=== PATIENT | female | born 1940 | race Two or more races ===

== ENCOUNTER 2021-06-18 20:00 | Emergency (ER) | payer MEDICARE, MEDICAID ==
[~2021-06-18] VITALS: Ht 165.1 cm; Wt 74.8 kg
[2021-06-18] MEDS ORDERED: HYDROmorphone HCL 2 MG/ML VL IV ONE (20:45)
[2021-06-18] MEDS ORDERED: ONDANSETRON HCL 4 MG/2 ML VIAL IV ONE (20:45)
[2021-06-18] MEDS ORDERED: SODIUM CHLORIDE 0.9% 500 ML IV ONE (21:45)
[2021-06-18] MEDS ORDERED: METOPROLOL TARTRATE 1MG/1ML-5ML VIAL IV ONE (22:00)
[2021-06-18 22:25] LABS: Basophils # (auto) 0 10 ^3/uL (0-0.2); Basophils % (auto) 0.5 % (0.0-2.0); Eosinophils # (auto) 0.3 10 ^3/uL (0-0.8); Eosinophils % (auto) 3.6 % (0.0-7.0); Hematocrit 40.4 % (36.0-46.0); Hemoglobin 13.7 g/dL (12.2-16.2); Lymphocytes # (auto) 1.9 10 ^3/uL (0.4-5.4); Lymphocytes % (auto) 22.4 % (10.0-50.0); Mean Corpuscular Hemoglobin 33.3 pg (28.0-32.0); Mean Corpuscular Volume 98.1 fL (80.0-100.0); Monocytes # (auto) 0.8 10 ^3/uL (0-1.3); Monocytes % (auto) 9.6 % (0.0-12.0); Neutrophils # (auto) 5.5 10 ^3/uL (1.6-8.6); Neutrophils % (auto) 63.9 % (37.0-80.0); Nucleated Red Blood Cells % 0.2 %; Red Blood Cells 4.12 10^6/uL (4.0-5.20); Red Cell Distribution Width 13.8 % (11.8-14.3); White Blood Cell 8.6 10^3/uL (4.4-10.8)
[2021-06-18 22:46] LABS: Albumin 3.2 g/dL (3.4-5.0); BUN/Creatinine Ratio 29.7; Calcium 8.8 mg/dL (8.5-10.1); Potassium 3.6 mmol/L (3.5-5.1)
[2021-06-18 22:49] LABS: Bilirubin, Total 0.4 mg/dL (0.2-1.0); Total Protein 7.3 g/dL (6.4-8.2)
[2021-06-19] MEDS ORDERED: hydrALAZINE HCL 20 MG/ML VL IV ONE ×2 (02:45)
[2021-06-19] MEDS ORDERED: HYDROcodone-ACET 5/325MG TAB PO ONE (03:30)
[2021-06-19] MEDS ORDERED: ONDANSETRON HCL 4 MG/2 ML VIAL IV ONE (03:30)
[2021-06-19 07:32] VITALS: BP 158/86
== END 2021-06-19 09:37 | disposition home or self-care (01) ==
LOC: EDBD 20:00 → ER 20:03
DX: S30.1XXA Contusion of abdominal wall, initial encounter (principal); S70.01XA Contusion of right hip, initial encounter; I10 Essential (primary) hypertension; Z20.822 Contact with and (suspected) exposure to COVID-19; W18.39XA Other fall on same level, initial encounter; Y93.89 Activity, other specified; Y92.89 Other specified places as the place of occurrence of the external cause; Y99.8 Other external cause status
CPT/HCPCS: 36415; 72170; 73502; 74176; 80053; 85025; 87426; 93005; 96361; 96374; 96375; 96376; J2405

== ENCOUNTER 2021-06-21 10:55 | Inpatient (IN) | payer MEDICARE, MEDICAID ==
[~2021-06-21] VITALS: Ht 154.9 cm; Wt 77.5 kg
[2021-06-21] MEDS ORDERED: SODIUM CHLORIDE 0.9% 500 ML IV ONE (12:30)
[2021-06-21 13:24] LABS: Basophils # (auto) 0.1 10 ^3/uL (0-0.2); Basophils % (auto) 0.9 % (0.0-2.0); Eosinophils # (auto) 0.2 10 ^3/uL (0-0.8); Eosinophils % (auto) 2.5 % (0.0-7.0); Hemoglobin 12.5 g/dL (12.2-16.2); Lymphocytes # (auto) 1.2 10 ^3/uL (0.4-5.4); Lymphocytes % (auto) 15.1 % (10.0-50.0); Mean Corpuscular Hemoglobin 32.5 pg (28.0-32.0); Mean Corpuscular Volume 98.3 fL (80.0-100.0); Monocytes # (auto) 0.6 10 ^3/uL (0-1.3); Monocytes % (auto) 7.1 % (0.0-12.0); Neutrophils # (auto) 6.1 10 ^3/uL (1.6-8.6); Neutrophils % (auto) 74.4 % (37.0-80.0); Nucleated Red Blood Cells % 0.1 %; Red Blood Cells 3.87 10^6/uL (4.0-5.20); White Blood Cell 8.2 10^3/uL (4.4-10.8)
[2021-06-21 13:35] LABS: Albumin 2.9 g/dL (3.4-5.0); Calcium 8.5 mg/dL (8.5-10.1); Potassium 3.9 mmol/L (3.5-5.1)
[2021-06-21 13:37] LABS: INR 1.3 (0.9-1.15); Partial Thromboplastin Time 30.5 sec (23.6-33.0)
[2021-06-21 13:38] LABS: BUN/Creatinine Ratio 27.8; Bilirubin, Total 0.7 mg/dL (0.2-1.0); Total Protein 6.2 g/dL (6.4-8.2)
[2021-06-21] MEDS ORDERED: IOHEXOL 300 MG/ML 100ML BOTTLE IJ ONE (14:30)
[2021-06-21] MEDS ORDERED: IOHEXOL 350 MG/ML 100ML IJ ONE (15:24)
[2021-06-21] MEDS ORDERED: HYDROcodone-ACET 5/325MG TAB PO PRN (17:15)
[2021-06-21] MEDS ORDERED: ACETAMINOPHEN 325 MG TAB PO PRN (17:15)
[2021-06-21] MEDS ORDERED: DOCUSATE SOD 100 MG CAP PO PRN (17:15)
[2021-06-21] MEDS ORDERED: LORazepam 0.5 MG TAB PO PRN (17:15)
[2021-06-21] MEDS ORDERED: MORPHINE SULFATE INJECTION 2 MG/ML SYRG IV PRN (17:15)
[2021-06-21] MEDS ORDERED: NITROGLYCERIN 0.4 MG SL TAB SL PRN (17:15)
[2021-06-21] MEDS: ONDANSETRON HCL 4 MG/2 ML VIAL IV PRN (19:00)
[2021-06-21] MEDS: SODIUM CHLORIDE 0.9% 1,000 ML IV SCH (19:01)
[2021-06-21 23:23] VITALS: BP 150/82
[2021-06-22 05:00] VITALS: BP 162/101
[2021-06-22] MEDS: HYDROmorphone HCL 2 MG/ML VL IV PRN ×3 (05:17→18:37)
[2021-06-22] MEDS: ONDANSETRON HCL 4 MG/2 ML VIAL IV PRN ×2 (05:18→09:15)
[2021-06-22] MEDS ORDERED: [UNRECOGNIZED DRUG - CODE] PO (05:33)
[2021-06-22] MEDS ORDERED: HYDR50TA15 PO (05:33)
[2021-06-22] MEDS ORDERED: CARV25TA55 PO (05:33)
[2021-06-22] MEDS ORDERED: GABA300C10 PO (05:33)
[2021-06-22] MEDS ORDERED: OXYB5SYP4 PO (05:33)
[2021-06-22] MEDS ORDERED: IRBE300T43 PO (05:33)
[2021-06-22] MEDS ORDERED: OMEP20TA PO (05:33)
[2021-06-22] MEDS ORDERED: DOCU-94 PO (05:33)
[2021-06-22] MEDS ORDERED: DONE1TAB88 PO (05:33)
[2021-06-22] MEDS ORDERED: MONT-8 PO (05:33)
[2021-06-22] MEDS: hydrALAZINE HCL 20 MG/ML VL IV PRN (07:05)
[2021-06-22] MEDS ORDERED: LORazepam 2MG/ML-1ML VIAL ONE (08:19)
[2021-06-22 08:46] VITALS: BP 175/90
[2021-06-22] MEDS: SODIUM CHLORIDE 0.9% 1,000 ML IV SCH (09:55)
[2021-06-22] MEDS: PROMETHAZINE HCL 25 MG/ML 1ML IV PRN ×2 (12:34→18:37)
[2021-06-22 12:44] VITALS: BP 148/96
[2021-06-22 17:00] VITALS: BP 166/86
[2021-06-22] MEDS: cloNIDine HCL 0.1 MG TAB PO PRN (18:36)
[2021-06-22] MEDS: RIVAROXABAN 15 MG TAB PO SCH (18:38)
[2021-06-22 22:00] VITALS: BP 144/81
[2021-06-23] MEDS: SODIUM CHLORIDE 0.9% 1,000 ML IV SCH ×2 (02:48→19:15)
[2021-06-23 05:00] VITALS: BP 165/103
[2021-06-23] MEDS: cloNIDine HCL 0.1 MG TAB PO PRN ×2 (05:28→20:35)
[2021-06-23 09:00] VITALS: BP 138/88
[2021-06-23] MEDS: HYDROmorphone HCL 2 MG/ML VL IV PRN (10:35)
[2021-06-23 17:00] VITALS: BP 145/87
[2021-06-23] MEDS: RIVAROXABAN 15 MG TAB PO SCH (18:57)
[2021-06-23] MEDS ORDERED: LORazepam 2MG/ML-1ML VIAL IV PRN (20:00)
[2021-06-23 22:00] VITALS: BP 170/97
[2021-06-23] MEDS: PANTOPRAZOLE 40 MG/10 ML VIAL INJ IV SCH (22:12)
[2021-06-23 22:37] LABS: Folate (Folic Acid) 18.07 ng/mL (5.38-24)
[2021-06-24] VITALS (7 sets, daily range): BP systolic 131–164; BP diastolic 92–105
[2021-06-24] MEDS ORDERED: diphenhdrAMINE HCL 50 MG/1 ML VL ONE (08:32)
[2021-06-24] MEDS: PANTOPRAZOLE 40 MG/10 ML VIAL INJ IV SCH (09:19)
[2021-06-24] MEDS: hydrALAZINE HCL 20 MG/ML VL IV PRN (12:37)
[2021-06-24] MEDS: SODIUM CHLORIDE 0.9% 1,000 ML IV SCH (12:47)
[2021-06-24] MEDS: MIDAZOLAM HCL 5 MG/ML-1ML VIAL ONE ×2 (14:58→15:01)
[2021-06-24] MEDS: fentaNYL CITRATE 100 MCG/2 ML VL ONE ×2 (14:58→15:01)
[2021-06-24] MEDS: RIVAROXABAN 15 MG TAB PO SCH (18:29)
[2021-06-24] MEDS ORDERED: HALOPERIDOL LACTATE 5 MG/ML INJ VIAL IM PRN (19:30)
[2021-06-24] MEDS ORDERED: MIRTAZAPINE 30 MG TAB PO SCH (22:00)
[2021-06-25] MEDS: SODIUM CHLORIDE 0.9% 1,000 ML IV SCH (04:35)
[2021-06-25 07:45] VITALS: BP 188/103
[2021-06-25 08:30] VITALS: BP 188/103
[2021-06-25] MEDS ORDERED: LABETALOL HCL 5 MG/ML 4ML SYRINGE IV ONE (08:30)
[2021-06-25] MEDS ORDERED: HALOPERIDOL LACTATE 5 MG/ML INJ VIAL IM PRN (08:30)
[2021-06-25] MEDS ORDERED: cefTRIAXone 1GM/50ML D5W 50 ML IV SCH (09:00)
[2021-06-25] MEDS: PANTOPRAZOLE 40 MG/10 ML VIAL INJ IV SCH (09:24)
[2021-06-25] MEDS ORDERED: METOPROLOL TARTRATE 25 MG TAB PO SCH (10:00)
[2021-06-25] MEDS ORDERED: LOSARTAN POTASSIUM 25 MG TAB PO SCH (10:00)
[2021-06-25 13:00] VITALS: BP 155/95
[2021-06-25 16:28] VITALS: BP 152/92
[2021-06-25 17:00] VITALS: BP 158/88
[2021-06-25] MEDS: RIVAROXABAN 15 MG TAB PO SCH (18:00)
== END 2021-06-25 19:55 | disposition home health service (06) | DRG 380 ==
LOC: ER 10:55 → EDBD 10:55 → OVERFLOW 17:04 → WEST WING 23:23 → TELE-WESTW 06-23 14:34
PROVIDERS: ADMIT Family Medicine; ATTEND Family Medicine
PROC: 0DB68ZX Excision of Stomach, Via Natural or Artificial Opening Endoscopic, Diagnostic (ICD-10-PCS; 2021-06-24)
PROC: 0DB48ZX Excision of Esophagogastric Junction, Via Natural or Artificial Opening Endoscopic, Diagnostic (ICD-10-PCS; 2021-06-24)
PROC: 0DB98ZX Excision of Duodenum, Via Natural or Artificial Opening Endoscopic, Diagnostic (ICD-10-PCS; principal; 2021-06-24 14:55)
DX: K22.10 Ulcer of esophagus without bleeding (principal); G93.41 Metabolic encephalopathy; S22.41XA Multiple fractures of ribs, right side, initial encounter for closed fracture; E44.1 Mild protein-calorie malnutrition; K44.9 Diaphragmatic hernia without obstruction or gangrene; I10 Essential (primary) hypertension; K29.70 Gastritis, unspecified, without bleeding; Z20.822 Contact with and (suspected) exposure to COVID-19; E66.9 Obesity, unspecified; F17.200 Nicotine dependence, unspecified, uncomplicated; I48.0 Paroxysmal atrial fibrillation; K21.9 Gastro-esophageal reflux disease without esophagitis; R53.81 Other malaise; W18.39XA Other fall on same level, initial encounter; Y93.89 Activity, other specified; Y92.89 Other specified places as the place of occurrence of the external cause; Z95.0 Presence of cardiac pacemaker; Z68.32 Body mass index [BMI] 32.0-32.9, adult; Y99.8 Other external cause status; Z79.01 Long term (current) use of anticoagulants; Z79.899 Other long term (current) drug therapy; Z90.49 Acquired absence of other specified parts of digestive tract
CPT/HCPCS: 36415; 43239; 70450; 72170; 73502; 74176; 74177; 80053; 82607; 82746; 84443; 85025; 85610; 85730; 87426; 93005; 93306; 93886; 95819; 96361; 96374; 96375; 96376; 97110; 97116; 97530; C9113; G0378; J0696; J2250; J2405

== ENCOUNTER 2021-08-29 21:48 | Emergency (ER) | payer MEDICARE, MEDICAID ==
[~2021-08-29] VITALS: Ht 165.1 cm; Wt 77.6 kg
[~2021-08-29 21:48] MED LIST: CARV25TA55 PO; DOCU-94 PO; DONE1TAB88 PO; GABA300C10 PO; HYDR50TA15 PO; IRBE300T43 PO; MONT-8 PO; OMEP20TA PO; OXYB5SYP4 PO; [UNRECOGNIZED DRUG - CODE] PO
[2021-08-29 22:47] LABS: Basophils # (auto) 0.1 10 ^3/uL (0-0.2); Basophils % (auto) 0.9 % (0.0-2.0); Eosinophils # (auto) 0.3 10 ^3/uL (0-0.8); Eosinophils % (auto) 3.7 % (0.0-7.0); Hematocrit 38.5 % (36.0-46.0); Hemoglobin 13.2 g/dL (12.2-16.2); Lymphocytes # (auto) 1.2 10 ^3/uL (0.4-5.4); Mean Corpuscular Hemoglobin 33.5 pg (28.0-32.0); Mean Corpuscular Hgb Conc. 34.2 g/dL (32.0-36.0); Monocytes # (auto) 0.9 10 ^3/uL (0-1.3); Monocytes % (auto) 12.3 % (0.0-12.0); Neutrophils # (auto) 4.6 10 ^3/uL (1.6-8.6); Neutrophils % (auto) 66.1 % (37.0-80.0); Nucleated Red Blood Cells % 0.1 %; Red Blood Cells 3.93 10^6/uL (4.0-5.20); Red Cell Distribution Width 13.8 % (11.8-14.3)
[2021-08-29 23:04] LABS: INR 1.45 (0.9-1.15); Partial Thromboplastin Time 41.9 sec (23.6-33.0)
[2021-08-29 23:05] LABS: Albumin 3.2 g/dL (3.4-5.0); Calcium 8.4 mg/dL (8.5-10.1); Magnesium 2.3 mg/dL (1.6-2.6); Potassium 3.8 mmol/L (3.5-5.1)
[2021-08-29 23:08] LABS: BUN/Creatinine Ratio 23.9
[2021-08-29 23:13] LABS: Bilirubin, Total 0.3 mg/dL (0.2-1.0); Total Protein 7.4 g/dL (6.4-8.2)
[2021-08-29] MEDS ORDERED: IOHEXOL 300 MG/ML 100ML BOTTLE IJ ONE (23:33)
[2021-08-30 04:30] VITALS: BP 101/62
== END 2021-08-30 06:02 | disposition home or self-care (01) ==
LOC: ER 21:54
DX: I48.91 Unspecified atrial fibrillation (principal); I10 Essential (primary) hypertension; Z95.0 Presence of cardiac pacemaker; Z79.899 Other long term (current) drug therapy
CPT/HCPCS: 36415; 71260; 80053; 83735; 83880; 84484; 85025; 85379; 85610; 85730; 93005; 99285; Q9967

== ENCOUNTER 2021-09-08 12:03 | Emergency (ER) | payer MEDICARE, MEDICAID ==
[~2021-09-08] VITALS: Ht 165.1 cm; Wt 76.2 kg
[2021-09-08 12:10] VITALS: BP 158/85
== END 2021-09-08 18:15 | disposition home or self-care (01) ==
LOC: ER 12:03
DX: J30.9 Allergic rhinitis, unspecified (principal); I10 Essential (primary) hypertension; Z95.0 Presence of cardiac pacemaker; Z79.899 Other long term (current) drug therapy
CPT/HCPCS: 93005

== ENCOUNTER 2021-09-25 18:54 | Inpatient (IN) | payer MEDICARE, MEDICAID ==
[~2021-09-25] VITALS: Ht 165.1 cm; Wt 80.2 kg
[2021-09-25] MEDS ORDERED: ASPirin 325 MG TAB PO ONE (19:45)
[2021-09-25] MEDS ORDERED: NITROGLYCERIN 0.4 MG SL TAB SL ONE (19:45)
[2021-09-25 19:51] LABS: Basophils # (auto) 0.1 10 ^3/uL (0-0.2); Basophils % (auto) 0.5 % (0.0-2.0); Eosinophils # (auto) 0.1 10 ^3/uL (0-0.8); Eosinophils % (auto) 0.7 % (0.0-7.0); Hemoglobin 13.1 g/dL (12.2-16.2); Lymphocytes # (auto) 2.3 10 ^3/uL (0.4-5.4); Lymphocytes % (auto) 20.3 % (10.0-50.0); Mean Corpuscular Hemoglobin 32.7 pg (28.0-32.0); Mean Corpuscular Hgb Conc. 33.5 g/dL (32.0-36.0); Mean Corpuscular Volume 97.7 fL (80.0-100.0); Monocytes # (auto) 1.1 10 ^3/uL (0-1.3); Monocytes % (auto) 10.2 % (0.0-12.0); Neutrophils # (auto) 7.6 10 ^3/uL (1.6-8.6); Neutrophils % (auto) 68.3 % (37.0-80.0); Nucleated Red Blood Cells % 0.1 %; Red Cell Distribution Width 13.7 % (11.8-14.3); White Blood Cell 11.1 10^3/uL (4.4-10.8)
[2021-09-25 20:07] LABS: Albumin 3.3 g/dL (3.4-5.0); Calcium 9.1 mg/dL (8.5-10.1)
[2021-09-25 20:23] LABS: Bilirubin, Total 0.3 mg/dL (0.2-1.0); Total Protein 7.7 g/dL (6.4-8.2)
[2021-09-26] MEDS ORDERED: hydrALAZINE HCL 20 MG/ML VL IV PRN (06:00)
[2021-09-26] MEDS ORDERED: FUROSEMIDE 20 MG/2 ML VIAL IV ONE (06:00)
[2021-09-26] MEDS ORDERED: ONDANSETRON HCL 4 MG/2 ML VIAL IV PRN (06:00)
[2021-09-26] MEDS ORDERED: DOCUSATE SOD 100 MG CAP PO PRN (06:00)
[2021-09-26] MEDS ORDERED: ACETAMINOPHEN 325 MG TAB PO PRN (06:00)
[2021-09-26] MEDS ORDERED: HYDROcodone-ACET 5/325MG TAB PO PRN (06:00)
[2021-09-26] MEDS: SODIUM CHLOR 0.9% PF (SALINE LOCK) 10ML VIAL/SYR IV SCH ×3 (06:00→21:51)
[2021-09-26] MEDS ORDERED: NITROGLYCERIN 0.4 MG SL TAB SL PRN (06:30)
[2021-09-26] MEDS ORDERED: MORPHINE SULFATE INJECTION 2 MG/ML SYRG IV PRN (06:30)
[2021-09-26 08:16] LABS: Basophils # (auto) 0.1 10 ^3/uL (0-0.2); Basophils % (auto) 1.2 % (0.0-2.0); Eosinophils # (auto) 0.3 10 ^3/uL (0-0.8); Eosinophils % (auto) 3.1 % (0.0-7.0); Hematocrit 38.7 % (36.0-46.0); Hemoglobin 13.4 g/dL (12.2-16.2); Lymphocytes # (auto) 2.6 10 ^3/uL (0.4-5.4); Lymphocytes % (auto) 29.1 % (10.0-50.0); Mean Corpuscular Hemoglobin 33.6 pg (28.0-32.0); Mean Corpuscular Hgb Conc. 34.6 g/dL (32.0-36.0); Mean Corpuscular Volume 97.2 fL (80.0-100.0); Monocytes # (auto) 0.8 10 ^3/uL (0-1.3); Monocytes % (auto) 9.3 % (0.0-12.0); Neutrophils # (auto) 5.1 10 ^3/uL (1.6-8.6); Neutrophils % (auto) 57.3 % (37.0-80.0); Nucleated Red Blood Cells % 0.2 %; Red Blood Cells 3.99 10^6/uL (4.0-5.20); Red Cell Distribution Width 13.7 % (11.8-14.3); White Blood Cell 8.9 10^3/uL (4.4-10.8)
[2021-09-26 08:21] LABS: Albumin 3.3 g/dL (3.4-5.0); Calcium 8.8 mg/dL (8.5-10.1); Potassium 3.9 mmol/L (3.5-5.1)
[2021-09-26 08:24] LABS: BUN/Creatinine Ratio 26.6; Bilirubin, Total 0.4 mg/dL (0.2-1.0); Total Protein 7.6 g/dL (6.4-8.2)
[2021-09-26 09:30] VITALS: BP 149/77
[2021-09-26] MEDS: FAMOTIDINE (10MG/ML) 2ML VL IV SCH (12:13)
[2021-09-26] MEDS: CARVEDILOL 12.5 MG TAB PO SCH ×2 (12:14→21:50)
[2021-09-26] MEDS: ASPirin 81 mg TAB PO SCH (12:15)
[2021-09-26] MEDS: ASCORBIC ACID 500 MG TAB PO SCH ×2 (12:15→21:51)
[2021-09-26] MEDS: MULTIPLE VITAMIN TAB PO SCH (12:15)
[2021-09-26] MEDS: ZINC SULFATE 220mg CAP or TAB PO SCH (12:15)
[2021-09-26] MEDS: FUROSEMIDE 20 MG/2 ML VIAL IV SCH (12:16)
[2021-09-26 13:00] VITALS: BP 139/96
[2021-09-26 17:00] VITALS: BP 126/85
[2021-09-26] MEDS: RIVAROXABAN 20 MG TAB PO SCH (17:24)
[2021-09-26] MEDS: dilTIAZem 120MG ER CAP PO SCH (21:49)
[2021-09-26] MEDS: DOCUSATE SOD 100 MG CAP PO SCH (21:49)
[2021-09-26] MEDS: DONEPEZIL HYDROCHLORIDE 5 MG TAB PO SCH (21:50)
[2021-09-26] MEDS: GABAPENTIN 300 MG CAP PO SCH (21:50)
[2021-09-26] MEDS: hydrALAZINE HCL 25 MG TAB PO SCH (21:50)
[2021-09-26] MEDS: CHOLECALCIFEROL (VITD3) 1,000UNIT=25mCg TAB PO SCH (21:51)
[2021-09-26 22:00] VITALS: BP 143/94
[2021-09-26] MEDS ORDERED: diphenhdrAMINE HCL 25 MG CAP PO PRN (22:00)
[2021-09-26] MEDS: MONTELUKAST SODIUM 10 MG TAB PO SCH (22:00)
[2021-09-27 05:00] VITALS: BP 123/81
[2021-09-27] MEDS: SODIUM CHLOR 0.9% PF (SALINE LOCK) 10ML VIAL/SYR IV SCH ×3 (06:10→22:10)
[2021-09-27] MEDS: hydrALAZINE HCL 25 MG TAB PO SCH ×3 (06:14→22:00)
[2021-09-27 06:39] LABS: Basophils # (auto) 0.1 10 ^3/uL (0-0.2); Basophils % (auto) 0.8 % (0.0-2.0); Eosinophils # (auto) 0.5 10 ^3/uL (0-0.8); Hematocrit 39.5 % (36.0-46.0); Hemoglobin 13.4 g/dL (12.2-16.2); Lymphocytes # (auto) 2.5 10 ^3/uL (0.4-5.4); Lymphocytes % (auto) 32.2 % (10.0-50.0); Mean Corpuscular Hemoglobin 33.1 pg (28.0-32.0); Mean Corpuscular Hgb Conc. 33.9 g/dL (32.0-36.0); Mean Corpuscular Volume 97.7 fL (80.0-100.0); Monocytes # (auto) 1.2 10 ^3/uL (0-1.3); Monocytes % (auto) 15.4 % (0.0-12.0); Neutrophils # (auto) 3.5 10 ^3/uL (1.6-8.6); Neutrophils % (auto) 45.6 % (37.0-80.0); Red Blood Cells 4.05 10^6/uL (4.0-5.20); Red Cell Distribution Width 13.8 % (11.8-14.3); White Blood Cell 7.8 10^3/uL (4.4-10.8)
[2021-09-27 07:02] LABS: Potassium 4.6 mmol/L (3.5-5.1)
[2021-09-27 07:28] LABS: BUN/Creatinine Ratio 28.4; Bilirubin, Total 0.4 mg/dL (0.2-1.0); Calcium 8.8 mg/dL (8.5-10.1); Total Protein 7.4 g/dL (6.4-8.2)
[2021-09-27 09:00] VITALS: BP 124/67
[2021-09-27] MEDS: FAMOTIDINE (10MG/ML) 2ML VL IV SCH (09:30)
[2021-09-27] MEDS: FOLIC ACID 1 MG TAB PO SCH (09:31)
[2021-09-27] MEDS: ZINC SULFATE 220mg CAP or TAB PO SCH (09:31)
[2021-09-27] MEDS: DOCUSATE SOD 100 MG CAP PO SCH ×2 (09:31→22:01)
[2021-09-27] MEDS: OXYBUTYNIN CHL 5 MG TAB PO SCH (09:34)
[2021-09-27] MEDS: CARVEDILOL 12.5 MG TAB PO SCH ×2 (09:34→22:02)
[2021-09-27] MEDS: HCTZ 25 MG TAB PO SCH (09:35)
[2021-09-27] MEDS: MAGNESIUM OXIDE 400 MG TAB PO SCH (09:35)
[2021-09-27] MEDS: MULTIPLE VITAMIN TAB PO SCH (09:35)
[2021-09-27] MEDS: ASPirin 81 mg TAB PO SCH (09:35)
[2021-09-27] MEDS: ASCORBIC ACID 500 MG TAB PO SCH ×2 (09:35→22:02)
[2021-09-27] MEDS: FUROSEMIDE 20 MG/2 ML VIAL IV SCH (09:36)
[2021-09-27 13:00] VITALS: BP 113/72
[2021-09-27 17:00] VITALS: BP 98/67
[2021-09-27] MEDS: RIVAROXABAN 20 MG TAB PO SCH (17:13)
[2021-09-27 20:00] VITALS: BP 115/76
[2021-09-27 22:00] VITALS: BP 115/76
[2021-09-27] MEDS: DONEPEZIL HYDROCHLORIDE 5 MG TAB PO SCH (22:00)
[2021-09-27] MEDS: dilTIAZem 120MG ER CAP PO SCH (22:01)
[2021-09-27] MEDS: GABAPENTIN 300 MG CAP PO SCH (22:02)
[2021-09-27] MEDS: MONTELUKAST SODIUM 10 MG TAB PO SCH (22:02)
[2021-09-27] MEDS: CHOLECALCIFEROL (VITD3) 1,000UNIT=25mCg TAB PO SCH (22:03)
[2021-09-28] VITALS (8 sets, daily range): BP systolic 99–119; BP diastolic 44–76
[2021-09-28] MEDS: SODIUM CHLOR 0.9% PF (SALINE LOCK) 10ML VIAL/SYR IV SCH ×3 (06:00→21:09)
[2021-09-28] MEDS: hydrALAZINE HCL 25 MG TAB PO SCH ×3 (06:00→21:21)
[2021-09-28] MEDS ORDERED: ADENOSINE 67 MG in GIVE UN-DILUTED 0 ML IV STA (09:02)
[2021-09-28] MEDS: ASPirin 81 mg TAB PO SCH (09:41)
[2021-09-28] MEDS: FUROSEMIDE 20 MG/2 ML VIAL IV SCH (09:41)
[2021-09-28] MEDS: ZINC SULFATE 220mg CAP or TAB PO SCH (09:41)
[2021-09-28] MEDS: FOLIC ACID 1 MG TAB PO SCH (09:41)
[2021-09-28] MEDS: FAMOTIDINE (10MG/ML) 2ML VL IV SCH (09:41)
[2021-09-28] MEDS: OXYBUTYNIN CHL 5 MG TAB PO SCH (09:42)
[2021-09-28] MEDS: DOCUSATE SOD 100 MG CAP PO SCH ×2 (09:42→21:24)
[2021-09-28] MEDS: MULTIPLE VITAMIN TAB PO SCH (09:42)
[2021-09-28] MEDS: ASCORBIC ACID 500 MG TAB PO SCH ×2 (09:43→21:27)
[2021-09-28] MEDS: MAGNESIUM OXIDE 400 MG TAB PO SCH (09:43)
[2021-09-28] MEDS: CARVEDILOL 12.5 MG TAB PO SCH ×2 (11:38→21:31)
[2021-09-28] MEDS: HCTZ 25 MG TAB PO SCH (11:38)
[2021-09-28] MEDS: RIVAROXABAN 20 MG TAB PO SCH (18:36)
[2021-09-28] MEDS: DONEPEZIL HYDROCHLORIDE 5 MG TAB PO SCH (21:22)
[2021-09-28] MEDS: dilTIAZem 120MG ER CAP PO SCH (21:24)
[2021-09-28] MEDS: GABAPENTIN 300 MG CAP PO SCH (21:27)
[2021-09-28] MEDS: MONTELUKAST SODIUM 10 MG TAB PO SCH (21:27)
[2021-09-28] MEDS: CHOLECALCIFEROL (VITD3) 1,000UNIT=25mCg TAB PO SCH (21:29)
[2021-09-29 05:00] VITALS: BP 120/67
[2021-09-29] MEDS: SODIUM CHLOR 0.9% PF (SALINE LOCK) 10ML VIAL/SYR IV SCH ×2 (05:54→14:00)
[2021-09-29] MEDS: hydrALAZINE HCL 25 MG TAB PO SCH ×2 (05:56→14:00)
[2021-09-29 08:00] VITALS: BP_SYST 115; BP_SYST 118; BP_DIAS 67; BP_DIAS 76
[2021-09-29] MEDS: FUROSEMIDE 20 MG/2 ML VIAL IV SCH (09:38)
[2021-09-29] MEDS: FAMOTIDINE (10MG/ML) 2ML VL IV SCH (09:39)
[2021-09-29] MEDS: ASPirin 81 mg TAB PO SCH (09:40)
[2021-09-29] MEDS: FOLIC ACID 1 MG TAB PO SCH (09:40)
[2021-09-29] MEDS: DOCUSATE SOD 100 MG CAP PO SCH (09:41)
[2021-09-29] MEDS: ZINC SULFATE 220mg CAP or TAB PO SCH (09:41)
[2021-09-29] MEDS: CARVEDILOL 12.5 MG TAB PO SCH ×2 (09:41→10:41)
[2021-09-29] MEDS: OXYBUTYNIN CHL 5 MG TAB PO SCH (09:41)
[2021-09-29] MEDS: HCTZ 25 MG TAB PO SCH (09:42)
[2021-09-29] MEDS: MAGNESIUM OXIDE 400 MG TAB PO SCH (09:42)
[2021-09-29] MEDS: ASCORBIC ACID 500 MG TAB PO SCH (09:42)
[2021-09-29] MEDS: MULTIPLE VITAMIN TAB PO SCH (09:42)
[2021-09-29] MEDS ORDERED: FURO1TAB33 PO (11:46)
[2021-09-29] MEDS ORDERED: RIVA20TA PO (11:46)
[2021-09-29 12:00] VITALS: BP 97/53
[2021-09-29 15:00] VITALS: BP 101/66
[2021-09-29 16:00] VITALS: BP 112/70
== END 2021-09-29 16:55 | disposition home health service (06) | DRG 291 ==
LOC: ER 18:54 → TELE 09-26 06:22 → TELE-EAST 09-26 09:33
PROVIDERS: ADMIT Nurse Practitioner Family; ATTEND Family Medicine
DX: I11.0 Hypertensive heart disease with heart failure (principal); I50.43 Acute on chronic combined systolic (congestive) and diastolic (congestive) heart failure; I48.20 Chronic atrial fibrillation, unspecified; D72.829 Elevated white blood cell count, unspecified; F03.90 Unspecified dementia, unspecified severity, without behavioral disturbance, psychotic disturbance, mood disturbance, and anxiety; Z20.822 Contact with and (suspected) exposure to COVID-19; E66.9 Obesity, unspecified; Z95.0 Presence of cardiac pacemaker; Z68.29 Body mass index [BMI] 29.0-29.9, adult; Z79.01 Long term (current) use of anticoagulants
CPT/HCPCS: 36415; 71045; 78452; 80053; 83880; 84484; 85025; 85379; 93005; 93017; 93925; 96374; G0378; J0153; J2405; J3490

== ENCOUNTER → 2021-12-02 | Outpatient (CLI) | payer OTHER, MEDICAID ==
[~2021-12-02] MED LIST changes: +FURO1TAB33 PO; +RIVA20TA PO
[2021-12-02 10:12] LABS: Basophils # (auto) 0.1 10 ^3/uL (0-0.2); Basophils % (auto) 1.8 % (0.0-2.0); Eosinophils # (auto) 0.3 10 ^3/uL (0-0.8); Eosinophils % (auto) 5.1 % (0.0-7.0); Hematocrit 38.6 % (36.0-46.0); Hemoglobin 13.1 g/dL (12.2-16.2); Lymphocytes # (auto) 1.7 10 ^3/uL (0.4-5.4); Lymphocytes % (auto) 26.4 % (10.0-50.0); Mean Corpuscular Hemoglobin 32.2 pg (28.0-32.0); Mean Corpuscular Hgb Conc. 33.9 g/dL (32.0-36.0); Monocytes # (auto) 0.8 10 ^3/uL (0-1.3); Monocytes % (auto) 12.3 % (0.0-12.0); Neutrophils # (auto) 3.6 10 ^3/uL (1.6-8.6); Neutrophils % (auto) 54.4 % (37.0-80.0); Nucleated Red Blood Cells % 0.1 %; Red Blood Cells 4.07 10^6/uL (4.0-5.20); Red Cell Distribution Width 13.9 % (11.8-14.3); White Blood Cell 6.6 10^3/uL (4.4-10.8)
[2021-12-02 10:40] LABS: Urine Bacteria NONE SEEN /hpf (None Seen); Urine Blood Negative /uL (Negative); Urine Specific Gravity 1.016 (1.001-1.035); Urine WBC 10 /hpf (0 - 5)
[2021-12-02 10:49] LABS: Albumin 3.1 g/dL (3.4-5.0); Calcium 8.7 mg/dL (8.5-10.1); Potassium 4.5 mmol/L (3.5-5.1)
[2021-12-02 10:54] LABS: BUN/Creatinine Ratio 19.8; Bilirubin, Total 0.5 mg/dL (0.2-1.0); Total Protein 7.4 g/dL (6.4-8.2)
== END | disposition home or self-care (01) ==
LOC: LAB 09:58
PROVIDERS: ATTEND Student in an Organized Health Care Education/Training Program
DX: I10 Essential (primary) hypertension (principal)
CPT/HCPCS: 36415; 80053; 80061; 81001; 84439; 84443; 85025

== ENCOUNTER 2022-03-13 16:59 | Emergency (ER) | payer MEDICARE, MEDICAID ==
[~2022-03-13] VITALS: Ht 165.1 cm; Wt 75.0 kg
[2022-03-13 18:07] VITALS: BP 161/89
[2022-03-13 19:40] LABS: Basophils # (auto) 0.1 10 ^3/uL (0-0.2); Basophils % (auto) 1.1 % (0.0-2.0); Eosinophils # (auto) 0.4 10 ^3/uL (0-0.8); Eosinophils % (auto) 3.6 % (0.0-7.0); Hematocrit 43.3 % (36.0-46.0); Hemoglobin 14.2 g/dL (12.2-16.2); Lymphocytes # (auto) 1.7 10 ^3/uL (0.4-5.4); Mean Corpuscular Hemoglobin 30.9 pg (28.0-32.0); Mean Corpuscular Hgb Conc. 32.8 g/dL (32.0-36.0); Mean Corpuscular Volume 94.1 fL (80.0-100.0); Monocytes # (auto) 1.1 10 ^3/uL (0-1.3); Monocytes % (auto) 10.5 % (0.0-12.0); Neutrophils % (auto) 67.8 % (37.0-80.0); Nucleated Red Blood Cells % 0.1 %; Red Blood Cells 4.61 10^6/uL (4.0-5.20); Red Cell Distribution Width 15.4 % (11.8-14.3); White Blood Cell 10.3 10^3/uL (4.4-10.8)
[2022-03-13 19:57] LABS: Albumin 3.7 g/dL (3.4-5.0); BUN/Creatinine Ratio 21.7; Potassium 4.5 mmol/L (3.5-5.1)
[2022-03-13 20:00] LABS: Bilirubin, Total 0.5 mg/dL (0.2-1.0); Total Protein 7.7 g/dL (6.4-8.2)
[2022-03-13] MEDS ORDERED: KETOROLAC TROMETH 60MG/2ML VIAL IM ONE (21:30)
== END 2022-03-13 21:40 | disposition home or self-care (01) ==
LOC: ER 17:01
DX: M79.602 Pain in left arm (principal); M13.812 Other specified arthritis, left shoulder; I10 Essential (primary) hypertension; R06.02 Shortness of breath
CPT/HCPCS: 36415; 71045; 80053; 84484; 85025; 93005; 96372; 99285; J1885

== ENCOUNTER 2022-05-15 12:33 | Emergency (ER) | payer MEDICARE, MEDICAID ==
[~2022-05-15] VITALS: Ht 165.1 cm; Wt 73.0 kg
[2022-05-15 14:37] VITALS: BP 129/85
[2022-05-15] MEDS ORDERED: cefTRIAXone SOD 1,000 MG VL IM ONE (16:00)
[2022-05-15] MEDS ORDERED: PROM1SOL4 PO (16:01)
[2022-05-15] MEDS ORDERED: AMOX-277 PO (16:01)
[2022-05-15] MEDS ORDERED: METH4PAK PO (16:01)
== END 2022-05-15 16:36 | disposition home or self-care (01) ==
LOC: ER 12:41
DX: J20.9 Acute bronchitis, unspecified (principal); J03.90 Acute tonsillitis, unspecified; H65.03 Acute serous otitis media, bilateral; R07.89 Other chest pain; I10 Essential (primary) hypertension; Z95.0 Presence of cardiac pacemaker
CPT/HCPCS: 71046; 96372; 99283; J0696

== ENCOUNTER 2022-05-28 23:07 | Inpatient (IN) | payer MEDICARE, MEDICAID ==
[~2022-05-28] VITALS: Ht 165.1 cm; Wt 73.5 kg
[~2022-05-28 23:07] MED LIST changes: +AMOX-277 PO; +METH4PAK PO; +PROM1SOL4 PO
[2022-05-28 23:50] LABS: Basophils # (auto) 0.1 10 ^3/uL (0-0.2); Basophils % (auto) 0.9 % (0.0-2.0); Eosinophils # (auto) 0.3 10 ^3/uL (0-0.8); Eosinophils % (auto) 2.6 % (0.0-7.0); Hematocrit 40.1 % (36.0-46.0); Hemoglobin 13.3 g/dL (12.2-16.2); Lymphocytes # (auto) 1.6 10 ^3/uL (0.4-5.4); Lymphocytes % (auto) 16.8 % (10.0-50.0); Mean Corpuscular Hemoglobin 32.3 pg (28.0-32.0); Mean Corpuscular Hgb Conc. 33.2 g/dL (32.0-36.0); Mean Corpuscular Volume 97.3 fL (80.0-100.0); Monocytes # (auto) 1.3 10 ^3/uL (0-1.3); Monocytes % (auto) 13.6 % (0.0-12.0); Neutrophils # (auto) 6.3 10 ^3/uL (1.6-8.6); Neutrophils % (auto) 66.1 % (37.0-80.0); Nucleated Red Blood Cells % 0.1 %; Red Blood Cells 4.12 10^6/uL (4.0-5.20); Red Cell Distribution Width 14.6 % (11.8-14.3); White Blood Cell 9.5 10^3/uL (4.4-10.8)
[2022-05-29 00:07] LABS: Albumin 2.5 g/dL (3.4-5.0); BUN/Creatinine Ratio 23.8; Calcium 7.9 mg/dL (8.5-10.1); Potassium 4.4 mmol/L (3.5-5.1)
[2022-05-29 00:09] LABS: Bilirubin, Total 0.3 mg/dL (0.2-1.0); Total Protein 5.8 g/dL (6.4-8.2)
[2022-05-29] MEDS ORDERED: SODIUM CHLORIDE 0.9% 1,000 ML IV ONE ×2 (00:30→01:15)
[2022-05-29 00:37] LABS: Urine Bacteria NONE SEEN /hpf (None Seen); Urine Blood Negative /uL (Negative); Urine Hyaline Cast MANY /lpf (0 - 2); Urine Mucus FEW (None Seen); Urine WBC 5 /hpf (0 - 5)
[2022-05-29] MEDS ORDERED: DOCUSATE SOD 100 MG CAP PO PRN (02:00)
[2022-05-29] MEDS ORDERED: ONDANSETRON HCL 4 MG/2 ML VIAL IV PRN (02:00)
[2022-05-29] MEDS ORDERED: ALBUMIN 25% 100 ML IV SCH (02:00)
[2022-05-29] MEDS ORDERED: ACETAMINOPHEN 325 MG TAB PO PRN (02:00)
[2022-05-29] MEDS ORDERED: HYDROcodone-ACET 5/325MG TAB PO PRN (02:00)
[2022-05-29] MEDS ORDERED: MORPHINE SULFATE INJ 2 MG/ml SYRG IV PRN (02:45)
[2022-05-29] MEDS ORDERED: NITROGLYCERIN 0.4 MG SL TAB SL PRN (02:45)
[2022-05-29] MEDS: SODIUM CHLOR 0.9% PF (SALINE LOCK) 10ML VIAL/SYR IV SCH ×3 (06:11→23:36)
[2022-05-29 07:53] LABS: Basophils # (auto) 0 10 ^3/uL (0-0.2); Basophils % (auto) 0.5 % (0.0-2.0); Eosinophils # (auto) 0.1 10 ^3/uL (0-0.8); Eosinophils % (auto) 1.8 % (0.0-7.0); Hematocrit 37.4 % (36.0-46.0); Hemoglobin 12.2 g/dL (12.2-16.2); Lymphocytes # (auto) 1.8 10 ^3/uL (0.4-5.4); Lymphocytes % (auto) 22.9 % (10.0-50.0); Mean Corpuscular Hemoglobin 32.1 pg (28.0-32.0); Mean Corpuscular Hgb Conc. 32.6 g/dL (32.0-36.0); Mean Corpuscular Volume 98.3 fL (80.0-100.0); Monocytes # (auto) 1.2 10 ^3/uL (0-1.3); Monocytes % (auto) 15.6 % (0.0-12.0); Neutrophils # (auto) 4.6 10 ^3/uL (1.6-8.6); Neutrophils % (auto) 59.2 % (37.0-80.0); Red Cell Distribution Width 14.7 % (11.8-14.3); White Blood Cell 7.7 10^3/uL (4.4-10.8)
[2022-05-29 08:15] LABS: Albumin 2.7 g/dL (3.4-5.0); Calcium 7.4 mg/dL (8.5-10.1); Potassium 4.3 mmol/L (3.5-5.1)
[2022-05-29 08:19] LABS: BUN/Creatinine Ratio 23.5; Bilirubin, Total 0.5 mg/dL (0.2-1.0); Total Protein 5.8 g/dL (6.4-8.2)
[2022-05-29] MEDS: ASPirin 81 mg TAB PO SCH (09:23)
[2022-05-29] MEDS: FAMOTIDINE (10MG/ML) 2ML VL IV SCH ×2 (09:23→23:36)
[2022-05-29 09:30] VITALS: BP 112/57
[2022-05-29 12:58] VITALS: BP 96/57
[2022-05-29 13:00] VITALS: BP 96/57
[2022-05-29 14:40] LABS: Magnesium 2.2 mg/dL (1.6-2.6)
[2022-05-29] MEDS: SOD CHL 0.45% 1,000 ML IV SCH (14:42)
[2022-05-29 17:00] VITALS: BP 110/67
[2022-05-29 22:00] VITALS: BP 151/88
[2022-05-29] MEDS: OSELTAMIVIR 75 MG CAP PO SCH (22:00)
[2022-05-29] MEDS: CARVEDILOL 12.5 MG TAB PO SCH (23:37)
[2022-05-30] MEDS: SOD CHL 0.45% 1,000 ML IV SCH ×2 (02:35→15:56)
[2022-05-30 05:00] VITALS: BP 163/97
[2022-05-30] MEDS: SODIUM CHLOR 0.9% PF (SALINE LOCK) 10ML VIAL/SYR IV SCH ×3 (06:02→22:51)
[2022-05-30 07:14] LABS: Basophils # (auto) 0.1 10 ^3/uL (0-0.2); Basophils % (auto) 0.6 % (0.0-2.0); Eosinophils # (auto) 0.3 10 ^3/uL (0-0.8); Eosinophils % (auto) 3.2 % (0.0-7.0); Hematocrit 40.1 % (36.0-46.0); Hemoglobin 13.4 g/dL (12.2-16.2); Lymphocytes # (auto) 1.6 10 ^3/uL (0.4-5.4); Lymphocytes % (auto) 19.5 % (10.0-50.0); Mean Corpuscular Hemoglobin 32.4 pg (28.0-32.0); Mean Corpuscular Hgb Conc. 33.3 g/dL (32.0-36.0); Mean Corpuscular Volume 97.1 fL (80.0-100.0); Monocytes % (auto) 11.4 % (0.0-12.0); Neutrophils # (auto) 5.5 10 ^3/uL (1.6-8.6); Neutrophils % (auto) 65.3 % (37.0-80.0); Nucleated Red Blood Cells % 0.1 %; Red Blood Cells 4.13 10^6/uL (4.0-5.20); Red Cell Distribution Width 14.4 % (11.8-14.3); White Blood Cell 8.4 10^3/uL (4.4-10.8)
[2022-05-30 07:21] LABS: Potassium 4.2 mmol/L (3.5-5.1)
[2022-05-30 07:36] LABS: Albumin 2.8 g/dL (3.4-5.0); Calcium 8.3 mg/dL (8.5-10.1)
[2022-05-30 07:39] LABS: Bilirubin, Total 0.7 mg/dL (0.2-1.0)
[2022-05-30 09:00] VITALS: BP_SYST 136; BP_SYST 137; BP_DIAS 72; BP_DIAS 74
[2022-05-30] MEDS: ASPirin 81 mg TAB PO SCH (09:08)
[2022-05-30] MEDS: FAMOTIDINE (10MG/ML) 2ML VL IV SCH ×2 (09:09→22:51)
[2022-05-30] MEDS: CARVEDILOL 12.5 MG TAB PO SCH ×2 (09:09→22:53)
[2022-05-30] MEDS: RIVAROXABAN 20 MG TAB PO SCH (09:09)
[2022-05-30] MEDS: OSELTAMIVIR 75 MG CAP PO SCH ×2 (10:00→22:00)
[2022-05-30] MEDS ORDERED: PATIENTS OWN MEDICATION (xarelto 20 MG) PO SCH (10:00)
[2022-05-30 13:00] VITALS: BP_SYST 113; BP_SYST 115; BP_SYST 96; BP_DIAS 56; BP_DIAS 66; BP_DIAS 69
[2022-05-30 17:00] VITALS: BP_SYST 144; BP_SYST 161; BP_SYST 165; BP_DIAS 83; BP_DIAS 86; BP_DIAS 97
[2022-05-30] MEDS ORDERED: LORazepam 2MG/ML-1ML VIAL IV PRN (20:30)
[2022-05-30 22:00] VITALS: BP_SYST 146; BP_SYST 153; BP_SYST 161; BP_DIAS 54; BP_DIAS 87; BP_DIAS 95
[2022-05-30] MEDS: guaiFENesin-DM 100/10mg/5ml SYR PO PRN (22:00)
[2022-05-31 05:00] VITALS: BP_SYST 145; BP_SYST 151; BP_SYST 155; BP_DIAS 84; BP_DIAS 93; BP_DIAS 98
[2022-05-31] MEDS: SODIUM CHLOR 0.9% PF (SALINE LOCK) 10ML VIAL/SYR IV SCH ×3 (06:52→22:33)
[2022-05-31] MEDS: SOD CHL 0.45% 1,000 ML IV SCH ×2 (06:52→18:35)
[2022-05-31 08:54] VITALS: BP_SYST 148; BP_SYST 159; BP_DIAS 75; BP_DIAS 95; BP_DIAS 97
[2022-05-31 13:00] VITALS: BP_SYST 131; BP_SYST 139; BP_SYST 141; BP_DIAS 65; BP_DIAS 75; BP_DIAS 97
[2022-05-31] MEDS: guaiFENesin-DM 100/10mg/5ml SYR PO PRN ×2 (13:15→22:36)
[2022-05-31] MEDS: OSELTAMIVIR 75 MG CAP PO SCH ×2 (13:17→22:00)
[2022-05-31] MEDS: ASPirin 81 mg TAB PO SCH (13:17)
[2022-05-31] MEDS: CARVEDILOL 12.5 MG TAB PO SCH ×2 (13:17→22:34)
[2022-05-31] MEDS: RIVAROXABAN 20 MG TAB PO SCH (13:17)
[2022-05-31] MEDS: FAMOTIDINE (10MG/ML) 2ML VL IV SCH ×2 (13:18→22:32)
[2022-05-31 16:46] VITALS: BP_SYST 129; BP_SYST 143; BP_SYST 156; BP_DIAS 58; BP_DIAS 65; BP_DIAS 85
[2022-05-31 22:00] VITALS: BP_SYST 142; BP_SYST 150; BP_SYST 155; BP_DIAS 88; BP_DIAS 90
[2022-06-01 05:00] VITALS: BP_SYST 137; BP_SYST 140; BP_SYST 146; BP_DIAS 78; BP_DIAS 83
[2022-06-01] MEDS: SODIUM CHLOR 0.9% PF (SALINE LOCK) 10ML VIAL/SYR IV SCH ×3 (06:53→21:34)
[2022-06-01] MEDS: SOD CHL 0.45% 1,000 ML IV SCH ×2 (07:55→21:15)
[2022-06-01 09:00] VITALS: BP 145/85
[2022-06-01] MEDS: ASPirin 81 mg TAB PO SCH (10:56)
[2022-06-01] MEDS: CARVEDILOL 12.5 MG TAB PO SCH ×2 (10:56→21:33)
[2022-06-01] MEDS: guaiFENesin-DM 100/10mg/5ml SYR PO PRN (10:57)
[2022-06-01] MEDS: RIVAROXABAN 20 MG TAB PO SCH (10:57)
[2022-06-01] MEDS: FAMOTIDINE (10MG/ML) 2ML VL IV SCH ×2 (10:57→21:34)
[2022-06-01] MEDS: OSELTAMIVIR 75 MG CAP PO SCH ×2 (11:52→21:34)
[2022-06-01 13:00] VITALS: BP_SYST 119; BP_SYST 121; BP_SYST 153; BP_DIAS 72; BP_DIAS 84; BP_DIAS 91
[2022-06-01 17:00] VITALS: BP 152/82
[2022-06-01 23:44] VITALS: BP 160/87
[2022-06-02] MEDS: guaiFENesin-DM 100/10mg/5ml SYR PO PRN (01:53)
[2022-06-02] MEDS ORDERED: ALBUTEROL SULF 2.5 MG/0.5ML(0.5%) NEB SOLN NEB PRN (03:00)
[2022-06-02 05:00] VITALS: BP 129/87
[2022-06-02] MEDS: SODIUM CHLOR 0.9% PF (SALINE LOCK) 10ML VIAL/SYR IV SCH ×2 (06:23→14:00)
[2022-06-02 09:00] VITALS: BP 126/84
[2022-06-02] MEDS: OSELTAMIVIR 75 MG CAP PO SCH (10:00)
[2022-06-02] MEDS ORDERED: OSEL75CA5 PO (10:10)
[2022-06-02] MEDS: ASPirin 81 mg TAB PO SCH (10:33)
[2022-06-02] MEDS: FAMOTIDINE (10MG/ML) 2ML VL IV SCH (10:33)
[2022-06-02] MEDS: RIVAROXABAN 20 MG TAB PO SCH (10:33)
[2022-06-02] MEDS: CARVEDILOL 12.5 MG TAB PO SCH (10:34)
[2022-06-02] MEDS: SOD CHL 0.45% 1,000 ML IV SCH (10:35)
[2022-06-02 13:00] VITALS: BP 123/78
[2022-06-02 14:35] VITALS: BP 126/84
[2022-06-02 16:01] VITALS: BP 123/78
[2022-06-02 17:00] VITALS: BP 132/84
== END 2022-06-02 18:06 | disposition home health service (06) | DRG 291 ==
LOC: EDUNIT# 23:07 → EDBD 23:07 → ER 23:07 → TELE 05-29 02:40 → TELE-WESTW 05-29 08:18
PROVIDERS: ADMIT Nurse Practitioner Family; ATTEND Family Medicine
PROC: 4B02XSZ Measurement of Cardiac Pacemaker, External Approach (ICD-10-PCS; principal; 2022-06-01)
DX: I11.0 Hypertensive heart disease with heart failure (principal); I50.33 Acute on chronic diastolic (congestive) heart failure; E46 Unspecified protein-calorie malnutrition; I95.9 Hypotension, unspecified; F03.90 Unspecified dementia, unspecified severity, without behavioral disturbance, psychotic disturbance, mood disturbance, and anxiety; R55 Syncope and collapse; J10.1 Influenza due to other identified influenza virus with other respiratory manifestations; I48.91 Unspecified atrial fibrillation; E66.9 Obesity, unspecified; I73.9 Peripheral vascular disease, unspecified; K21.9 Gastro-esophageal reflux disease without esophagitis; R73.9 Hyperglycemia, unspecified; Z68.27 Body mass index [BMI] 27.0-27.9, adult; Z79.01 Long term (current) use of anticoagulants; Z95.0 Presence of cardiac pacemaker
CPT/HCPCS: 36415; 70450; 71045; 80053; 80061; 81001; 83036; 83735; 83880; 84443; 84484; 85025; 87426; 87804; 93005; 93886; 94640; 95819; 96360; 96361; 97116; 97163; 97530; G0378; J3490; P9047

== ENCOUNTER 2022-10-24 13:00 | Emergency (ER) | payer MEDICARE, MEDICAID ==
[~2022-10-24] VITALS: Ht 165.1 cm; Wt 75.0 kg
[~2022-10-24 13:00] MED LIST changes: +OSEL75CA5 PO
[2022-10-24 14:31] VITALS: BP 133/74
[2022-10-24] MEDS ORDERED: cefTRIAXone SOD 1,000 MG VL IM ONE (15:15)
[2022-10-24] MEDS ORDERED: AUG875T PO (15:45)
[2022-10-24] MEDS ORDERED: PROM1SOL4 PO (15:45)
[2022-10-24] MEDS ORDERED: MELO7.5T9 PO ×2 (15:45)
[2022-10-24] MEDS ORDERED: ACET-1080 PO (15:46)
== END 2022-10-24 15:56 | disposition home or self-care (01) ==
LOC: ER 13:00
DX: J20.9 Acute bronchitis, unspecified (principal); H65.93 Unspecified nonsuppurative otitis media, bilateral; M19.042 Primary osteoarthritis, left hand; K21.9 Gastro-esophageal reflux disease without esophagitis; I10 Essential (primary) hypertension
CPT/HCPCS: 71046; 73130; 96372; 99284; J0696

== ENCOUNTER 2022-12-05 19:54 | Emergency (ER) | payer MEDICARE, MEDICAID ==
[~2022-12-05] VITALS: Ht 165.1 cm; Wt 66.0 kg
[~2022-12-05 19:54] MED LIST changes: +ACET-1080 PO; -AMOX-277 PO; +AMOX875T4 PO; +AUG875T PO; +GABA-1250 PO; -GABA300C10 PO; +HYDR-4297 PO; -HYDR50TA15 PO; +[UNRECOGNIZED DRUG - CODE] PO; -[UNRECOGNIZED DRUG - CODE] PO
[2022-12-05 20:59] LABS: Basophils # (auto) 0.1 10 ^3/uL (0-0.2); Basophils % (auto) 1.4 % (0.0-2.0); Eosinophils # (auto) 0.4 10 ^3/uL (0-0.8); Eosinophils % (auto) 5.6 % (0.0-7.0); Hematocrit 37.6 % (36.0-46.0); Hemoglobin 12.6 g/dL (12.2-16.2); Lymphocytes # (auto) 2.4 10 ^3/uL (0.4-5.4); Lymphocytes % (auto) 33.6 % (10.0-50.0); Mean Corpuscular Hemoglobin 32.7 pg (28.0-32.0); Mean Corpuscular Hgb Conc. 33.4 g/dL (32.0-36.0); Mean Corpuscular Volume 97.9 fL (80.0-100.0); Monocytes # (auto) 0.9 10 ^3/uL (0-1.3); Monocytes % (auto) 12.6 % (0.0-12.0); Neutrophils # (auto) 3.3 10 ^3/uL (1.6-8.6); Neutrophils % (auto) 46.8 % (37.0-80.0); Nucleated Red Blood Cells % 0.1 %; Red Blood Cells 3.85 10^6/uL (4.0-5.20); White Blood Cell 7.1 10^3/uL (4.4-10.8)
[2022-12-05 21:13] LABS: Albumin 3.7 g/dL (3.4-5.0); Calcium 8.6 mg/dL (8.5-10.1); Potassium 3.8 mmol/L (3.5-5.1)
[2022-12-05 21:17] LABS: BUN/Creatinine Ratio 28.4 (10.0-20.0); Bilirubin, Total 0.4 mg/dL (0.2-1.0); Total Protein 7.8 g/dL (6.4-8.2)
[2022-12-05 21:24] LABS: INR 1.53 (0.9-1.15); Partial Thromboplastin Time 39.6 sec (24.6-33.4)
[2022-12-06 05:20] VITALS: BP 148/84
== END 2022-12-06 05:26 | disposition home or self-care (01) ==
LOC: ER 19:59
DX: R07.89 Other chest pain (principal); E86.0 Dehydration; R51.9 Headache, unspecified; I11.0 Hypertensive heart disease with heart failure; I50.9 Heart failure, unspecified; K21.9 Gastro-esophageal reflux disease without esophagitis; R73.9 Hyperglycemia, unspecified; Z88.1 Allergy status to other antibiotic agents
CPT/HCPCS: 36415; 70450; 71045; 73030; 80053; 84484; 85025; 85610; 85730; 93005

== ENCOUNTER 2022-12-26 11:57 | Inpatient (IN) | payer MEDICARE, MEDICAID ==
[~2022-12-26] VITALS: Ht 165.1 cm; Wt 73.9 kg
[2022-12-26] MEDS ORDERED: SODIUM CHLORIDE 0.9% 1,000 ML IVB ONE (12:45)
[2022-12-26 13:18] LABS: Basophils # (auto) 0.1 10 ^3/uL (0-0.2); Basophils % (auto) 0.9 % (0.0-2.0); Eosinophils # (auto) 0.4 10 ^3/uL (0-0.8); Eosinophils % (auto) 5.2 % (0.0-7.0); Hematocrit 38.1 % (36.0-46.0); Hemoglobin 12.7 g/dL (12.2-16.2); Lymphocytes # (auto) 1.6 10 ^3/uL (0.4-5.4); Lymphocytes % (auto) 22.4 % (10.0-50.0); Mean Corpuscular Hemoglobin 32.5 pg (28.0-32.0); Mean Corpuscular Hgb Conc. 33.2 g/dL (32.0-36.0); Mean Corpuscular Volume 97.9 fL (80.0-100.0); Monocytes # (auto) 0.8 10 ^3/uL (0-1.3); Monocytes % (auto) 10.5 % (0.0-12.0); Neutrophils # (auto) 4.4 10 ^3/uL (1.6-8.6); Nucleated Red Blood Cells % 0.1 %; Red Blood Cells 3.89 10^6/uL (4.0-5.20); Red Cell Distribution Width 13.6 % (11.8-14.3); White Blood Cell 7.2 10^3/uL (4.4-10.8)
[2022-12-26 13:26] LABS: INR 1.66 (0.9-1.15); Partial Thromboplastin Time 38.3 SEC (24.5-34.5)
[2022-12-26 13:30] LABS: Albumin 3.3 g/dL (3.4-5.0); Calcium 8.3 mg/dL (8.5-10.1); Magnesium 2.4 mg/dL (1.6-2.6); Potassium 4.1 mmol/L (3.5-5.1)
[2022-12-26 13:35] LABS: BUN/Creatinine Ratio 23.4 (10.0-20.0); Bilirubin, Total 0.4 mg/dL (0.2-1.0); Total Protein 6.9 g/dL (6.4-8.2)
[2022-12-26] MEDS ORDERED: ACETAMINOPHEN 325 MG TAB PO PRN (17:00)
[2022-12-26] MEDS ORDERED: ONDANSETRON HCL 4 MG/2 ML VIAL IV PRN (17:00)
[2022-12-26] MEDS: RIVAROXABAN 20 MG TAB PO SCH (18:17)
[2022-12-26] MEDS: hydrALAZINE HCL 25 MG TAB PO SCH (18:17)
[2022-12-26 18:40] LABS: Urine Bacteria FEW /hpf (None Seen); Urine Blood Negative /uL (Negative); Urine Specific Gravity 1.007 (1.001-1.035); Urine WBC 9 /hpf (0 - 5)
[2022-12-26] MEDS: DOCUSATE SOD 100 MG CAP PO SCH (22:09)
[2022-12-26] MEDS: CARVEDILOL 12.5 MG TAB PO SCH (22:09)
[2022-12-26] MEDS: SODIUM CHLOR 0.9% PF (SALINE LOCK) 10ML VIAL/SYR IV SCH (22:09)
[2022-12-27] MEDS: SODIUM CHLOR 0.9% PF (SALINE LOCK) 10ML VIAL/SYR IV SCH ×3 (06:04→21:56)
[2022-12-27] MEDS: hydrALAZINE HCL 25 MG TAB PO SCH ×3 (08:16→18:19)
[2022-12-27] MEDS ORDERED: OXYBUTYNIN CHLORIDE 10 MG PO SCH (10:00)
[2022-12-27] MEDS: PANTOPRAZOLE 40 MG TAB PO SCH (10:41)
[2022-12-27] MEDS: LOSARTAN POTASSIUM 50 MG TAB PO SCH (10:41)
[2022-12-27] MEDS: CARVEDILOL 12.5 MG TAB PO SCH ×2 (10:41→21:56)
[2022-12-27] MEDS: MONTELUKAST SODIUM 10 MG TAB PO SCH (10:41)
[2022-12-27] MEDS: DOCUSATE SOD 100 MG CAP PO SCH ×2 (10:42→21:56)
[2022-12-27] MEDS: FUROSEMIDE 20 MG TAB PO SCH (10:42)
[2022-12-27] MEDS: RIVAROXABAN 20 MG TAB PO SCH (18:18)
[2022-12-28] VITALS (7 sets, daily range): BP systolic 125–158; BP diastolic 75–89
[2022-12-28] MEDS: HYDROcodone-ACET 5/325MG TAB PO PRN ×2 (02:37→18:16)
[2022-12-28 06:43] LABS: BUN/Creatinine Ratio 29.9 (10.0-20.0); Calcium 8.6 mg/dL (8.5-10.1); Potassium 3.7 mmol/L (3.5-5.1)
[2022-12-28 06:44] LABS: Basophils # (auto) 0.1 10 ^3/uL (0-0.2); Basophils % (auto) 0.9 % (0.0-2.0); Eosinophils # (auto) 0.4 10 ^3/uL (0-0.8); Eosinophils % (auto) 5.5 % (0.0-7.0); Hematocrit 39.4 % (36.0-46.0); Hemoglobin 13.1 g/dL (12.2-16.2); Lymphocytes # (auto) 2.3 10 ^3/uL (0.4-5.4); Lymphocytes % (auto) 31.5 % (10.0-50.0); Mean Corpuscular Hemoglobin 32.5 pg (28.0-32.0); Mean Corpuscular Hgb Conc. 33.3 g/dL (32.0-36.0); Mean Corpuscular Volume 97.8 fL (80.0-100.0); Monocytes # (auto) 0.8 10 ^3/uL (0-1.3); Monocytes % (auto) 10.8 % (0.0-12.0); Neutrophils # (auto) 3.7 10 ^3/uL (1.6-8.6); Neutrophils % (auto) 51.3 % (37.0-80.0); Nucleated Red Blood Cells % 0.2 %; Red Blood Cells 4.03 10^6/uL (4.0-5.20); Red Cell Distribution Width 13.6 % (11.8-14.3); White Blood Cell 7.3 10^3/uL (4.4-10.8)
[2022-12-28] MEDS ORDERED: ADENOSINE IV STA (08:35)
[2022-12-28] MEDS ORDERED: GIVE UN DILUTED IV STA (08:35)
[2022-12-28] MEDS: SODIUM CHLOR 0.9% PF (SALINE LOCK) 10ML VIAL/SYR IV SCH ×3 (09:03→21:38)
[2022-12-28] MEDS ORDERED: ADENOSINE 62 MG in GIVE UN-DILUTED 0 ML IV STA (09:48)
[2022-12-28] MEDS: hydrALAZINE HCL 25 MG TAB PO SCH ×3 (11:29→18:15)
[2022-12-28] MEDS: CARVEDILOL 12.5 MG TAB PO SCH ×2 (11:49→21:39)
[2022-12-28] MEDS: PANTOPRAZOLE 40 MG TAB PO SCH (11:49)
[2022-12-28] MEDS: DOCUSATE SOD 100 MG CAP PO SCH ×2 (11:49→21:39)
[2022-12-28] MEDS: LOSARTAN POTASSIUM 50 MG TAB PO SCH (11:50)
[2022-12-28] MEDS: FUROSEMIDE 20 MG TAB PO SCH (11:50)
[2022-12-28] MEDS: MONTELUKAST SODIUM 10 MG TAB PO SCH (11:51)
[2022-12-28] MEDS: RIVAROXABAN 20 MG TAB PO SCH (18:15)
[2022-12-29] VITALS (7 sets, daily range): BP systolic 134–148; BP diastolic 56–82
[2022-12-29] MEDS: HYDROcodone-ACET 5/325MG TAB PO PRN (03:49)
[2022-12-29] MEDS: SODIUM CHLOR 0.9% PF (SALINE LOCK) 10ML VIAL/SYR IV SCH ×3 (06:02→22:00)
[2022-12-29] MEDS: hydrALAZINE HCL 25 MG TAB PO SCH ×3 (08:49→17:51)
[2022-12-29] MEDS: LOSARTAN POTASSIUM 50 MG TAB PO SCH (08:49)
[2022-12-29] MEDS: PANTOPRAZOLE 40 MG TAB PO SCH (08:49)
[2022-12-29] MEDS: DOCUSATE SOD 100 MG CAP PO SCH ×2 (08:49→20:23)
[2022-12-29] MEDS: MONTELUKAST SODIUM 10 MG TAB PO SCH (08:50)
[2022-12-29] MEDS: FUROSEMIDE 20 MG TAB PO SCH (08:50)
[2022-12-29] MEDS: CARVEDILOL 12.5 MG TAB PO SCH ×2 (08:51→20:24)
[2022-12-29] MEDS: RIVAROXABAN 20 MG TAB PO SCH (17:49)
[2022-12-30 05:00] VITALS: BP 140/81
[2022-12-30] MEDS: SODIUM CHLOR 0.9% PF (SALINE LOCK) 10ML VIAL/SYR IV SCH ×2 (05:46→14:00)
[2022-12-30 08:00] VITALS: BP 134/70
[2022-12-30] MEDS: hydrALAZINE HCL 25 MG TAB PO SCH ×2 (08:22→12:00)
[2022-12-30 08:28] VITALS: BP 150/86
[2022-12-30] MEDS: DOCUSATE SOD 100 MG CAP PO SCH (09:56)
[2022-12-30] MEDS: LOSARTAN POTASSIUM 50 MG TAB PO SCH (09:56)
[2022-12-30] MEDS: MONTELUKAST SODIUM 10 MG TAB PO SCH (09:56)
[2022-12-30] MEDS: FUROSEMIDE 20 MG TAB PO SCH (09:57)
[2022-12-30] MEDS: CARVEDILOL 12.5 MG TAB PO SCH (09:58)
[2022-12-30 12:41] VITALS: BP 114/71
[2022-12-30 15:13] VITALS: BP 114/71
[2022-12-30 16:31] VITALS: BP 154/73
== END 2022-12-30 16:30 | disposition home or self-care (01) | DRG 312 ==
LOC: ER 11:57 → EDBD 11:57 → TELE 16:58 → TELE-WESTW 12-27 23:03
PROVIDERS: ADMIT Internal Medicine; ATTEND Internal Medicine Pulmonary Disease
DX: R55 Syncope and collapse (principal); I11.0 Hypertensive heart disease with heart failure; I50.9 Heart failure, unspecified; M19.90 Unspecified osteoarthritis, unspecified site; I48.91 Unspecified atrial fibrillation; Z95.0 Presence of cardiac pacemaker; Z79.01 Long term (current) use of anticoagulants
CPT/HCPCS: 36415; 51702; 70450; 71045; 78452; 80048; 80053; 81001; 83735; 83880; 84443; 84484; 85025; 85610; 85730; 93005; 93017; 93306; 93886; 96360; 96361; G0378; J0153

== ENCOUNTER 2023-06-03 14:07 | Inpatient (IN) | payer MEDICARE, MEDICAID ==
[~2023-06-03] VITALS: Ht 165.1 cm; Wt 68.6 kg
[~2023-06-03 14:07] MED LIST changes: -AMOX875T4 PO
[2023-06-03 14:27] VITALS: PULSE 70; RESP 32; O2SAT 97
[2023-06-03 14:51] LABS: Base Excess -2.6 mmol/L (-2.0-2.0)
[2023-06-03 15:11] LABS: Basophils # (auto) 0.1 10 ^3/uL (0-0.2); Basophils % (auto) 0.4 % (0.0-2.0); Eosinophils # (auto) 0.2 10 ^3/uL (0-0.8); Eosinophils % (auto) 1.1 % (0.0-7.0); Hematocrit 39.9 % (36.0-46.0); Lymphocytes # (auto) 0.9 10 ^3/uL (0.4-5.4); Lymphocytes % (auto) 5.6 % (10.0-50.0); Mean Corpuscular Hemoglobin 31.8 pg (28.0-32.0); Mean Corpuscular Hgb Conc. 32.5 g/dL (32.0-36.0); Mean Corpuscular Volume 97.9 fL (80.0-100.0); Monocytes # (auto) 0.4 10 ^3/uL (0-1.3); Monocytes % (auto) 2.6 % (0.0-12.0); Neutrophils # (auto) 14.4 10 ^3/uL (1.6-8.6); Neutrophils % (auto) 90.3 % (37.0-80.0); Nucleated Red Blood Cells % 0.1 %; Red Blood Cells 4.08 10^6/uL (4.0-5.20); Red Cell Distribution Width 14.1 % (11.8-14.3); White Blood Cell 15.9 10^3/uL (4.4-10.8)
[2023-06-03 15:22] LABS: INR 1.6 (0.9-1.15); Partial Thromboplastin Time 37.3 SEC (24.5-34.5); Prothrombin Time 16.3 sec (9.3-11.8)
[2023-06-03 15:30] LABS: Alanine Aminotransferase 19 U/L (7-40); Albumin 4.1 g/dL (3.2-4.8); Alkaline Phosphatase 70 U/L (46-116); Anion Gap 7 (5-15); Aspartate Aminotransferase 24 U/L (13-40); BUN/Creatinine Ratio 19.3 (10.0-20.0); Blood Alcohol < 3.0 mg/dL (<10); Blood Urea Nitrogen 16 mg/dL (9-23); Calcium 8.8 mg/dL (8.7-10.4); Carbon Dioxide 25 mmol/L (20-30); Chloride 105 mmol/L (98-107); Glucose 108 mg/dL (74-106); Magnesium 1.9 mg/dL (1.6-2.6); Potassium 4.1 mmol/L (3.5-5.1); Sodium 137 mmol/L (136-145)
[2023-06-03 15:31] LABS: Bilirubin, Total 0.7 mg/dL (0.2-1.0); Total Protein 7.5 g/dL (5.7-8.2)
[2023-06-03 15:40] LABS: Lactic Acid w/Reflex 2.1 mmol/L (0.4-2.0)
[2023-06-03] MEDS ORDERED: FUROSEMIDE 100 MG/10ML VIAL IV ONE (16:00)
[2023-06-03] MEDS ORDERED: NITROGLYCERIN 2% OINT 1GM PKG TD ONE (16:00)
[2023-06-03 16:13] LABS: Urine Bacteria NONE SEEN /hpf (None Seen); Urine Blood Negative /uL (Negative); Urine Clarity HAZY (Clear); Urine Color Brown (Yellow); Urine Protein, UAD TRACE (Negative); Urine Specific Gravity 1.015 (1.001-1.035); Urine Urobilinogen Normal (Negative); Urine WBC 170 /hpf (0 - 5); Urine WBC Clumps PRESENT /hpf (None Seen)
[2023-06-03 16:19] LABS: Amphetamine Screen, Urine Neg (NEGATIVE); Barbiturate Scree,Urine Neg (NEGATIVE); Benzodiazephine Screen, Urine Neg (NEGATIVE)
[2023-06-03 16:20] LABS: Cannabinoid Screen, Urine Neg (NEGATIVE); Cocaine Screen, Urine Neg (NEGATIVE); Opiate Scree,Urine Neg (NEGATIVE); Phencyclidine Screen, Urine Neg (NEGATIVE)
[2023-06-03] MEDS ORDERED: NITROGLYCERIN 0.4 MG SL TAB SL PRN (18:30)
[2023-06-03] MEDS ORDERED: PANTOPRAZOLE 40 MG/10 ML VIAL INJ IV ONE (18:30)
[2023-06-03] MEDS ORDERED: cefTRIAXone 1GM/50ML D5W 50 ML IV ONE (18:30)
[2023-06-03] MEDS ORDERED: MORPHINE SULFATE INJ 2 MG/ml SYRG IV PRN (18:30)
[2023-06-03] MEDS ORDERED: ALBUTEROL MEDNEB 2.5 mg/3ml NEB NEB PRN (18:30)
[2023-06-03 19:30] VITALS: PULSE 90; RESP 20; O2SAT 98
[2023-06-03 19:53] LABS: LDL Cholesterol 84 mg/dL (< 100); Triglycerides 72 mg/dL (< 150)
[2023-06-03 19:55] LABS: Cholesterol 132 mg/dL (< 200); HDL Cholesterol 38 mg/dL (40-59)
[2023-06-03 20:22] LABS: Lipase 28 U/L (12-53)
[2023-06-03 20:45] VITALS: BP 118/70; PULSE 90; RESP 20; TEMP 98.1; O2SAT 99
[2023-06-03] MEDS: DOCUSATE SOD 100 MG CAP PO SCH (21:53)
[2023-06-03] MEDS: CARVEDILOL 12.5 MG TAB PO SCH (21:53)
[2023-06-03] MEDS: DONEPEZIL HYDROCHLORIDE 5 MG TAB PO SCH (21:53)
[2023-06-03 23:00] VITALS: O2SAT 96
[2023-06-03] MEDS: ACETAMINOPHEN 325 MG TAB PO PRN (23:26)
[2023-06-03 23:29] VITALS: BP 94/51; PULSE 98; RESP 18; TEMP 98.6; O2SAT 97
[2023-06-04] VITALS (17 sets, daily range): BP systolic 77–132; BP diastolic 45–65; PULSE 63–85; RESP 16–20; TEMP 97.5–98.1; O2SAT 93–99
[2023-06-04] MEDS ORDERED: MIDODRINE HCL 10 MG TAB PO ONE (04:15)
[2023-06-04] MEDS ORDERED: IOHEXOL 350 MG/ML 100ML IJ ONE (06:20)
[2023-06-04 07:30] LABS: Alanine Aminotransferase 15 U/L (7-40); Albumin 3.7 g/dL (3.2-4.8); Alkaline Phosphatase 58 U/L (46-116); Anion Gap 8 (5-15); Aspartate Aminotransferase 18 U/L (13-40); BUN/Creatinine Ratio 20.9 (10.0-20.0); Blood Urea Nitrogen 23 mg/dL (9-23); Calcium 8.9 mg/dL (8.5-10.1); Carbon Dioxide 27 mmol/L (20-30); Chloride 101 mmol/L (98-107); Glucose 105 mg/dL (74-106); Sodium 136 mmol/L (136-145); Total Protein 6.8 g/dL (5.7-8.2)
[2023-06-04 07:32] LABS: Basophils # (auto) 0 10 ^3/uL (0-0.2); Basophils % (auto) 0.2 % (0.0-2.0); Eosinophils # (auto) 0.1 10 ^3/uL (0-0.8); Eosinophils % (auto) 0.8 % (0.0-7.0); Hematocrit 35.3 % (36.0-46.0); Hemoglobin 11.6 g/dL (12.2-16.2); Lymphocytes # (auto) 1.3 10 ^3/uL (0.4-5.4); Mean Corpuscular Hemoglobin 31.5 pg (28.0-32.0); Mean Corpuscular Volume 95.7 fL (80.0-100.0); Monocytes # (auto) 0.8 10 ^3/uL (0-1.3); Monocytes % (auto) 5.7 % (0.0-12.0); Neutrophils % (auto) 84.3 % (37.0-80.0); Red Blood Cells 3.69 10^6/uL (4.0-5.20); White Blood Cell 14.3 10^3/uL (4.4-10.8)
[2023-06-04] MEDS: cefTRIAXone 1GM/50ML D5W 50 ML IV SCH (09:10)
[2023-06-04] MEDS: MONTELUKAST SODIUM 10 MG TAB PO SCH (09:11)
[2023-06-04] MEDS: PANTOPRAZOLE 40 MG/10 ML VIAL INJ IV SCH (09:11)
[2023-06-04] MEDS: GABAPENTIN 300 MG CAP PO SCH (09:11)
[2023-06-04] MEDS: DOCUSATE SOD 100 MG CAP PO SCH ×2 (09:11→22:11)
[2023-06-04] MEDS: LOSARTAN POTASSIUM 50 MG TAB PO SCH (10:00)
[2023-06-04] MEDS: OXYBUTYNIN CHLORIDE 10 MG PO SCH (10:00)
[2023-06-04] MEDS: CARVEDILOL 12.5 MG TAB PO SCH ×2 (10:00→22:00)
[2023-06-04] MEDS ORDERED: ENOXAPARIN SOD 40 MG/0.4 ML SYRINGE SC SCH (10:00)
[2023-06-04] MEDS ORDERED: AZITHROMYCIN 500MG/ 250ML 250 ML IV ONE (13:15)
[2023-06-04] MEDS ORDERED: VANCOMYCIN PER PHARMACY 0 MG IV SCH (13:45)
[2023-06-04] MEDS ORDERED: VANCOMYCIN 1GM/250ML 250 ML IV ONE (13:45)
[2023-06-04 15:25] LABS: COVID19 ANTIGEN SOFIA FIA NEGATIVE (NEGATIVE)
[2023-06-04] MEDS: RIVAROXABAN 15 MG TAB PO SCH (18:49)
[2023-06-04] MEDS ORDERED: POTASSIUM EFFERVESENT TAB 25 MEQ PO ONE (19:30)
[2023-06-04] MEDS: DONEPEZIL HYDROCHLORIDE 5 MG TAB PO SCH (22:11)
[2023-06-05 05:00] VITALS: BP 112/72; PULSE 80; RESP 18; TEMP 98.4; O2SAT 94
[2023-06-05 05:50] LABS: Anion Gap 6 (5-15); Calcium 8.9 mg/dL (8.7-10.4); Carbon Dioxide 30 mmol/L (20-30); Chloride 103 mmol/L (98-107); Sodium 139 mmol/L (136-145)
[2023-06-05 05:56] LABS: Blood Urea Nitrogen 18 mg/dL (9-23); Glucose 92 mg/dL (74-106)
[2023-06-05 08:00] VITALS: PULSE 82
[2023-06-05] MEDS: cefTRIAXone 1GM/50ML D5W 50 ML IV SCH (09:55)
[2023-06-05] MEDS: PANTOPRAZOLE 40 MG/10 ML VIAL INJ IV SCH (09:55)
[2023-06-05] MEDS: AZITHROMYCIN 500MG/ 250ML 250 ML IV SCH (09:56)
[2023-06-05] MEDS: CARVEDILOL 12.5 MG TAB PO SCH ×2 (09:57→21:45)
[2023-06-05] MEDS: MONTELUKAST SODIUM 10 MG TAB PO SCH (09:57)
[2023-06-05] MEDS: LOSARTAN POTASSIUM 50 MG TAB PO SCH (09:57)
[2023-06-05] MEDS: DOCUSATE SOD 100 MG CAP PO SCH ×2 (09:58→21:45)
[2023-06-05] MEDS: OXYBUTYNIN CHLORIDE 10 MG PO SCH (09:58)
[2023-06-05] MEDS: GABAPENTIN 300 MG CAP PO SCH (09:58)
[2023-06-05 10:34] VITALS: O2SAT 96
[2023-06-05] MEDS ORDERED: VANCOMYCIN 1GM/250ML 250 ML IV ONE (11:00)
[2023-06-05 13:00] VITALS: BP 130/71; PULSE 80; RESP 20; TEMP 97.6; O2SAT 98
[2023-06-05] MEDS: RIVAROXABAN 15 MG TAB PO SCH (18:00)
[2023-06-05 20:00] VITALS: PULSE 87
[2023-06-05] MEDS: DONEPEZIL HYDROCHLORIDE 5 MG TAB PO SCH (21:45)
[2023-06-05 22:00] VITALS: BP 126/88; PULSE 91; RESP 18; TEMP 98.4; O2SAT 95
[2023-06-06] VITALS (7 sets, daily range): BP systolic 117–150; BP diastolic 68–92; PULSE 70–91; RESP 16–18; TEMP 97.8–98.9; O2SAT 92–95
[2023-06-06] MEDS: cefTRIAXone 1GM/50ML D5W 50 ML IV SCH (08:58)
[2023-06-06] MEDS: PANTOPRAZOLE 40 MG/10 ML VIAL INJ IV SCH (08:58)
[2023-06-06] MEDS: DOCUSATE SOD 100 MG CAP PO SCH ×2 (08:59→21:05)
[2023-06-06] MEDS: MONTELUKAST SODIUM 10 MG TAB PO SCH (08:59)
[2023-06-06] MEDS: GABAPENTIN 300 MG CAP PO SCH (08:59)
[2023-06-06] MEDS: CARVEDILOL 12.5 MG TAB PO SCH ×2 (09:00→21:10)
[2023-06-06] MEDS: LOSARTAN POTASSIUM 50 MG TAB PO SCH (09:00)
[2023-06-06] MEDS: OXYBUTYNIN CHLORIDE 10 MG PO SCH (09:09)
[2023-06-06] MEDS: AZITHROMYCIN 500MG/ 250ML 250 ML IV SCH (10:47)
[2023-06-06] MEDS: VANCOMYCIN 1GM/250ML 250 ML IV SCH (14:34)
[2023-06-06] MEDS: RIVAROXABAN 15 MG TAB PO SCH (16:41)
[2023-06-06] MEDS: DONEPEZIL HYDROCHLORIDE 5 MG TAB PO SCH (21:05)
[2023-06-07] VITALS (17 sets, daily range): BP systolic 138–182; BP diastolic 77–104; PULSE 66–88; RESP 12–22; TEMP 97.4–98.7; O2SAT 96–99
[2023-06-07 06:47] LABS: INR 1.14 (0.9-1.15); Partial Thromboplastin Time 30.8 SEC (24.5-34.5); Prothrombin Time 11.9 sec (9.3-11.8)
[2023-06-07 07:51] LABS: Basophils # (auto) 0.1 10 ^3/uL (0-0.2); Basophils % (auto) 1.1 % (0.0-2.0); Eosinophils # (auto) 0.5 10 ^3/uL (0-0.8); Eosinophils % (auto) 7.5 % (0.0-7.0); Hematocrit 38.3 % (36.0-46.0); Hemoglobin 12.9 g/dL (12.2-16.2); Lymphocytes # (auto) 2.1 10 ^3/uL (0.4-5.4); Lymphocytes % (auto) 30.2 % (10.0-50.0); Mean Corpuscular Hemoglobin 32.2 pg (28.0-32.0); Mean Corpuscular Hgb Conc. 33.6 g/dL (32.0-36.0); Mean Corpuscular Volume 95.8 fL (80.0-100.0); Monocytes # (auto) 0.8 10 ^3/uL (0-1.3); Monocytes % (auto) 11.9 % (0.0-12.0); Neutrophils # (auto) 3.4 10 ^3/uL (1.6-8.6); Neutrophils % (auto) 49.3 % (37.0-80.0); White Blood Cell 6.9 10^3/uL (4.4-10.8)
[2023-06-07] MEDS: VANCOMYCIN 1GM/250ML 250 ML IV SCH (08:00)
[2023-06-07 08:09] LABS: Alanine Aminotransferase 15 U/L (7-40); Albumin 3.8 g/dL (3.2-4.8); Alkaline Phosphatase 56 U/L (46-116); Anion Gap 9 (5-15); Aspartate Aminotransferase 25 U/L (13-40); BUN/Creatinine Ratio 18.8 (10.0-20.0); Bilirubin, Total 0.5 mg/dL (0.2-1.0); Blood Urea Nitrogen 12 mg/dL (9-23); Calcium 9.4 mg/dL (8.5-10.1); Carbon Dioxide 24 mmol/L (20-30); Chloride 106 mmol/L (98-107); Glucose 84 mg/dL (74-106); Potassium 4.4 mmol/L (3.5-5.1); Sodium 139 mmol/L (136-145)
[2023-06-07] MEDS: cefTRIAXone 1GM/50ML D5W 50 ML IV SCH (09:00)
[2023-06-07] MEDS: OXYBUTYNIN CHLORIDE 10 MG PO SCH (09:12)
[2023-06-07] MEDS: GABAPENTIN 300 MG CAP PO SCH (09:13)
[2023-06-07] MEDS: CARVEDILOL 12.5 MG TAB PO SCH ×2 (09:13→22:18)
[2023-06-07] MEDS: DOCUSATE SOD 100 MG CAP PO SCH ×2 (09:13→22:18)
[2023-06-07] MEDS: LOSARTAN POTASSIUM 50 MG TAB PO SCH (09:13)
[2023-06-07] MEDS: MONTELUKAST SODIUM 10 MG TAB PO SCH (09:14)
[2023-06-07] MEDS: PANTOPRAZOLE 40 MG/10 ML VIAL INJ IV SCH (10:00)
[2023-06-07] MEDS: AZITHROMYCIN 500MG/ 250ML 250 ML IV SCH (10:00)
[2023-06-07] MEDS ORDERED: cloNIDine HCL 0.1 MG TAB PO ONE (13:15)
[2023-06-07] MEDS ORDERED: MIDAZOLAM HCL 2MG/2ML 2ml VIAL (1mg/ml) IV ONE (15:15)
[2023-06-07] MEDS ORDERED: LIDOCAINE VISCOUS 2% 15ML UD MT ONE (15:15)
[2023-06-07] MEDS ORDERED: fentaNYL CITRATE 100 MCG/2 ML VL IV ONE (15:15)
[2023-06-07] MEDS ORDERED: LIDOCAINE 2%HCL (LOCAL ANESTH.) INJ 20ML MDV ONE (15:21)
[2023-06-07] MEDS ORDERED: IODIXANOL 320MG/ML 100ML BTL IV ONE (15:22)
[2023-06-07] MEDS ORDERED: NALOXONE HCL 0.4 MG/ML VIAL ONE (15:24)
[2023-06-07] MEDS ORDERED: FLUMAZENIL 0.1 MG/ML INJ 10ML MDV IV ONE (15:24)
[2023-06-07] MEDS ORDERED: ANGIOMAX 250 MG VIAL IV ONE (15:54)
[2023-06-07] MEDS ORDERED: HEPARIN SODIUM (PORCINE) 5000 UNITS/ML 1ML VIAL ONE (15:54)
[2023-06-07] MEDS ORDERED: SODIUM CHL 0.9% 0 ML ONE (15:55)
[2023-06-07] MEDS: RIVAROXABAN 15 MG TAB PO SCH (18:00)
[2023-06-07] MEDS: DONEPEZIL HYDROCHLORIDE 5 MG TAB PO SCH (22:17)
[2023-06-08] MEDS: VANCOMYCIN 1GM/250ML 250 ML IV SCH (01:58)
[2023-06-08 05:00] VITALS: BP 146/84; PULSE 79; RESP 18; TEMP 98.4; O2SAT 95
[2023-06-08 08:00] VITALS: PULSE 82
[2023-06-08] MEDS ORDERED: HYDR-4902 PO (08:19)
[2023-06-08] MEDS ORDERED: LINE1TAB6 PO (08:19)
[2023-06-08] MEDS ORDERED: AZIT500T66 PO (08:19)
[2023-06-08] MEDS: OXYBUTYNIN CHLORIDE 10 MG PO SCH (08:30)
[2023-06-08] MEDS: cefTRIAXone 1GM/50ML D5W 50 ML IV SCH (08:39)
[2023-06-08 09:00] VITALS: BP 152/82; PULSE 67; RESP 16; TEMP 97.9; O2SAT 96
[2023-06-08] MEDS: AZITHROMYCIN 500MG/ 250ML 250 ML IV SCH (10:22)
[2023-06-08] MEDS: LOSARTAN POTASSIUM 50 MG TAB PO SCH (10:24)
[2023-06-08] MEDS: CARVEDILOL 12.5 MG TAB PO SCH (10:24)
[2023-06-08] MEDS: DOCUSATE SOD 100 MG CAP PO SCH (10:25)
[2023-06-08] MEDS: GABAPENTIN 300 MG CAP PO SCH (10:25)
[2023-06-08] MEDS: MONTELUKAST SODIUM 10 MG TAB PO SCH (10:25)
[2023-06-08] MEDS: PANTOPRAZOLE 40 MG/10 ML VIAL INJ IV SCH (10:25)
[2023-06-08] MEDS: ACETAMINOPHEN 325 MG TAB PO PRN (10:33)
[2023-06-08 13:00] VITALS: BP 150/80; PULSE 69; RESP 16; TEMP 97.8; O2SAT 95
[2023-06-08] MEDS: RIVAROXABAN 15 MG TAB PO SCH (17:49)
[2023-06-08 17:50] VITALS: BP 139/76; PULSE 73
== END 2023-06-08 18:27 | disposition home or self-care (01) | DRG 871 ==
LOC: EDBD 14:07 → ER 14:07 → TELE-CENTR 18:51 → TELE 18:51 → TELE-CENTR 22:25
PROVIDERS: ADMIT Nurse Practitioner Family; ATTEND Family Medicine
PROC: B211YZZ Fluoroscopy of Multiple Coronary Arteries using Other Contrast (ICD-10-PCS; principal; 2023-06-07)
PROC: 4A023N8 Measurement of Cardiac Sampling and Pressure, Bilateral, Percutaneous Approach (ICD-10-PCS; 2023-06-07)
PROC: B24BZZ4 Ultrasonography of Heart with Aorta, Transesophageal (ICD-10-PCS; 2023-06-07)
PROC: B215YZZ Fluoroscopy of Left Heart using Other Contrast (ICD-10-PCS; 2023-06-07)
DX: A41.01 Sepsis due to Methicillin susceptible Staphylococcus aureus (principal); G93.41 Metabolic encephalopathy; I50.43 Acute on chronic combined systolic (congestive) and diastolic (congestive) heart failure; J96.01 Acute respiratory failure with hypoxia; R65.21 Severe sepsis with septic shock; J15.211 Pneumonia due to Methicillin susceptible Staphylococcus aureus; E87.21 Acute metabolic acidosis; N39.0 Urinary tract infection, site not specified; I11.0 Hypertensive heart disease with heart failure; I25.10 Atherosclerotic heart disease of native coronary artery without angina pectoris; F03.90 Unspecified dementia, unspecified severity, without behavioral disturbance, psychotic disturbance, mood disturbance, and anxiety; I48.91 Unspecified atrial fibrillation; I08.3 Combined rheumatic disorders of mitral, aortic and tricuspid valves; Z20.822 Contact with and (suspected) exposure to COVID-19; E66.01 Morbid (severe) obesity due to excess calories; I77.810 Thoracic aortic ectasia; Z96.641 Presence of right artificial hip joint; K21.9 Gastro-esophageal reflux disease without esophagitis; Z88.6 Allergy status to analgesic agent; Z79.899 Other long term (current) drug therapy; Z79.1 Long term (current) use of non-steroidal anti-inflammatories (NSAID); Z79.2 Long term (current) use of antibiotics; Z95.0 Presence of cardiac pacemaker; Z68.25 Body mass index [BMI] 25.0-25.9, adult; Z79.01 Long term (current) use of anticoagulants; Z87.891 Personal history of nicotine dependence
CPT/HCPCS: 36415; 36600; 70450; 71045; 71275; 80048; 80053; 80061; 80202; 80307; 80320; 81001; 82140; 82565; 82805; 83605; 83690; 83735; 83880; 84443; 84484; 84702; 85025; 85379; 85610; 85730; 86850; 86900; 86901; 87040; 87077; 87086; 87186; 87426; 93005; 93306; 93312; 93460; 97110; 97116; 97163; 97530; 99152; 99153; C1894; C9113; G0378; J0696; J2250; Q9967

== ENCOUNTER 2023-09-09 17:24 | Emergency (ER) | payer MEDICARE, MEDICAID ==
[~2023-09-09] VITALS: Ht 165.1 cm; Wt 75.7 kg
[~2023-09-09 17:24] MED LIST changes: +AZIT500T66 PO; +HYDR-4902 PO; +LINE1TAB6 PO
[2023-09-09 17:30] VITALS: BP 149/81; RESP 18; TEMP 97.2; O2SAT 97
[2023-09-09 19:20] LABS: Basophils # (auto) 0.1 10 ^3/uL (0-0.2); Basophils % (auto) 1.3 % (0.0-2.0); Eosinophils # (auto) 0.4 10 ^3/uL (0-0.8); Eosinophils % (auto) 6.2 % (0.0-7.0); Hematocrit 39.4 % (36.0-46.0); Hemoglobin 12.9 g/dL (12.2-16.2); Lymphocytes % (auto) 29.3 % (10.0-50.0); Mean Corpuscular Hemoglobin 31.2 pg (28.0-32.0); Mean Corpuscular Hgb Conc. 32.7 g/dL (32.0-36.0); Mean Corpuscular Volume 95.4 fL (80.0-100.0); Monocytes # (auto) 0.9 10 ^3/uL (0-1.3); Monocytes % (auto) 12.8 % (0.0-12.0); Neutrophils # (auto) 3.4 10 ^3/uL (1.6-8.6); Neutrophils % (auto) 50.4 % (37.0-80.0); Nucleated Red Blood Cells % 0.1 %; Red Blood Cells 4.14 10^6/uL (4.0-5.20); White Blood Cell 6.8 10^3/uL (4.4-10.8)
[2023-09-09 19:36] LABS: Alanine Aminotransferase 19 U/L (7-40); Alkaline Phosphatase 73 U/L (46-116); Anion Gap 4 (5-15); BUN/Creatinine Ratio 17.9 (10.0-20.0); Blood Urea Nitrogen 14 mg/dL (9-23); Carbon Dioxide 28 mmol/L (20-30); Chloride 107 mmol/L (98-107); Glucose 93 mg/dL (74-106); Potassium 3.7 mmol/L (3.5-5.1); Sodium 139 mmol/L (136-145)
[2023-09-09 19:37] LABS: Albumin 4.1 g/dL (3.2-4.8); Aspartate Aminotransferase 23 U/L (13-40); Bilirubin, Total 0.5 mg/dL (0.2-1.0); Total Protein 7.7 g/dL (5.7-8.2)
[2023-09-09] MEDS ORDERED: ZOFR4T PO (20:44)
[2023-09-09] MEDS ORDERED: ACET-1079 PO (20:44)
[2023-09-09 20:54] VITALS: PULSE 72
[2023-09-09] MEDS: DexAMETHasone 4 MG TAB PO ONE (21:31)
[2023-09-09] MEDS: ONDANSETRON ODT 4 MG TAB PO ONE (21:31)
[2023-09-09] MEDS: ACETAMINOPHEN 325 MG TAB PO ONE (21:32)
== END 2023-09-09 21:38 | disposition home or self-care (01) ==
LOC: ER 17:24
DX: M50.321 Other cervical disc degeneration at C4-C5 level (principal); M62.838 Other muscle spasm; R51.9 Headache, unspecified; I11.0 Hypertensive heart disease with heart failure; I50.9 Heart failure, unspecified; K21.9 Gastro-esophageal reflux disease without esophagitis; F03.90 Unspecified dementia, unspecified severity, without behavioral disturbance, psychotic disturbance, mood disturbance, and anxiety; I48.91 Unspecified atrial fibrillation; M19.90 Unspecified osteoarthritis, unspecified site; Z98.890 Other specified postprocedural states
CPT/HCPCS: 36415; 70450; 72125; 80053; 84484; 85025; 93005; 99284; J8540; Q0162

== ENCOUNTER 2023-10-27 09:33 | Inpatient (IN) | payer MEDICARE, MEDICAID ==
[~2023-10-27] VITALS: Ht 162.6 cm; Wt 74.9 kg
[~2023-10-27 09:33] MED LIST changes: +ACET-1079 PO; -HYDR-4297 PO; +HYDR50TA47 PO; +ZOFR4T PO
[2023-10-27 10:38] LABS: Basophils # (auto) 0.1 10 ^3/uL (0-0.2); Basophils % (auto) 1.5 % (0.0-2.0); Eosinophils # (auto) 0.4 10 ^3/uL (0-0.8); Hematocrit 41.7 % (36.0-46.0); Hemoglobin 14.2 g/dL (12.2-16.2); Lymphocytes # (auto) 1.5 10 ^3/uL (0.4-5.4); Lymphocytes % (auto) 21.1 % (10.0-50.0); Mean Corpuscular Hemoglobin 32.6 pg (28.0-32.0); Mean Corpuscular Hgb Conc. 34.1 g/dL (32.0-36.0); Mean Corpuscular Volume 95.7 fL (80.0-100.0); Monocytes # (auto) 0.7 10 ^3/uL (0-1.3); Monocytes % (auto) 9.7 % (0.0-12.0); Neutrophils # (auto) 4.5 10 ^3/uL (1.6-8.6); Neutrophils % (auto) 62.7 % (37.0-80.0); Nucleated Red Blood Cells % 0.1 %; Red Blood Cells 4.36 10^6/uL (4.0-5.20); Red Cell Distribution Width 15.1 % (11.8-14.3); White Blood Cell 7.2 10^3/uL (4.4-10.8)
[2023-10-27 10:55] LABS: Alanine Aminotransferase 22 U/L (7-40); Albumin 4.2 g/dL (3.2-4.8); Alkaline Phosphatase 73 U/L (46-116); Anion Gap 7 (5-15); Aspartate Aminotransferase 28 U/L (13-40); BUN/Creatinine Ratio 15.6 (10.0-20.0); Blood Urea Nitrogen 12 mg/dL (9-23); Calcium 9.6 mg/dL (8.5-10.1); Carbon Dioxide 27 mmol/L (20-30); Chloride 105 mmol/L (98-107); Glucose 109 mg/dL (74-106); Potassium 3.8 mmol/L (3.5-5.1); Sodium 139 mmol/L (136-145)
[2023-10-27 10:56] LABS: Bilirubin, Total 0.6 mg/dL (0.2-1.0); Total Protein 8.1 g/dL (5.7-8.2)
[2023-10-27] MEDS: SODIUM CHLORIDE 0.9% 1,000 ML IV ONE (11:02)
[2023-10-27 11:25] LABS: Urine Bacteria None Seen /hpf (None Seen)
[2023-10-27 12:24] LABS: Urine Blood Negative /uL (Negative); Urine Clarity Clear (Clear); Urine Color Yellow (Yellow); Urine Mucus FEW (None Seen); Urine Protein, UAD TRACE (Negative); Urine Urobilinogen Normal (Negative); Urine WBC 2 /hpf (0 - 5); Urine pH 5.5 (5.0-9.0)
[2023-10-27] MEDS ORDERED: ONDANSETRON HCL 4 MG/2 ML VIAL IV PRN ×2 (14:45)
[2023-10-27] MEDS ORDERED: NITROGLYCERIN 0.4 MG SL TAB SL PRN (14:45)
[2023-10-27 16:41] LABS: INR 1.88 (0.9-1.15)
[2023-10-27] MEDS ORDERED: RIVAROXABAN 15 MG TAB PO SCH (18:00)
[2023-10-27] MEDS ORDERED: FUROSEMIDE 20 MG/2 ML VIAL IV SCH (18:00)
[2023-10-27 23:08] VITALS: BP 134/78; PULSE 71; RESP 18; TEMP 98.2; O2SAT 97
[2023-10-27] MEDS: ATORVASTATIN 20 MG TAB PO SCH (23:25)
[2023-10-27] MEDS: CARVEDILOL 12.5 MG TAB PO SCH (23:26)
[2023-10-27] MEDS: DOCUSATE SOD 100 MG CAP PO SCH (23:26)
[2023-10-27] MEDS ORDERED: ISOS1TAB28 PO (23:44)
[2023-10-28] VITALS (7 sets, daily range): BP systolic 133–158; BP diastolic 73–87; PULSE 65–79; RESP 16–18; TEMP 98–98.3; O2SAT 94–97
[2023-10-28 06:31] LABS: Basophils # (auto) 0.1 10 ^3/uL (0-0.2); Basophils % (auto) 1.2 % (0.0-2.0); Eosinophils # (auto) 0.5 10 ^3/uL (0-0.8); Eosinophils % (auto) 7.1 % (0.0-7.0); Hematocrit 38.2 % (36.0-46.0); Hemoglobin 12.6 g/dL (12.2-16.2); Lymphocytes # (auto) 1.7 10 ^3/uL (0.4-5.4); Lymphocytes % (auto) 26.5 % (10.0-50.0); Mean Corpuscular Hemoglobin 31.3 pg (28.0-32.0); Mean Corpuscular Volume 94.8 fL (80.0-100.0); Monocytes % (auto) 14.7 % (0.0-12.0); Neutrophils # (auto) 3.3 10 ^3/uL (1.6-8.6); Neutrophils % (auto) 50.5 % (37.0-80.0); Nucleated Red Blood Cells % 0.1 %; Red Blood Cells 4.03 10^6/uL (4.0-5.20); Red Cell Distribution Width 15.5 % (11.8-14.3); White Blood Cell 6.5 10^3/uL (4.4-10.8)
[2023-10-28 06:45] LABS: Alanine Aminotransferase 18 U/L (7-40); Albumin 3.7 g/dL (3.2-4.8); Alkaline Phosphatase 64 U/L (46-116); Anion Gap 7 (5-15); Aspartate Aminotransferase 23 U/L (13-40); BUN/Creatinine Ratio 17.9 (10.0-20.0); Blood Urea Nitrogen 12 mg/dL (9-23); Calcium 8.7 mg/dL (8.5-10.1); Carbon Dioxide 25 mmol/L (20-30); Chloride 108 mmol/L (98-107); Cholesterol 128 mg/dL (< 200); Glucose 77 mg/dL (74-106); LDL Cholesterol 82 mg/dL (< 100); Potassium 4.1 mmol/L (3.5-5.1); Sodium 140 mmol/L (136-145); Triglycerides 91 mg/dL (< 150)
[2023-10-28 06:46] LABS: Bilirubin, Total 0.6 mg/dL (0.2-1.0); HDL Cholesterol 32 mg/dL (40-59)
[2023-10-28] MEDS ORDERED: IOHEXOL 350 MG/ML 100ML IJ ONE (08:12)
[2023-10-28 08:48] LABS: Phosphorus 3.7 mg/dL (2.4-5.1)
[2023-10-28 08:55] LABS: Amphetamine Screen, Urine Neg (NEGATIVE); Barbiturate Scree,Urine Neg (NEGATIVE); Benzodiazephine Screen, Urine Neg (NEGATIVE); Cocaine Screen, Urine Neg (NEGATIVE); Opiate Scree,Urine Neg (NEGATIVE); Phencyclidine Screen, Urine Neg (NEGATIVE)
[2023-10-28 08:56] LABS: Cannabinoid Screen, Urine Neg (NEGATIVE)
[2023-10-28 09:03] LABS: Magnesium 2.1 mg/dL (1.6-2.6)
[2023-10-28] MEDS: MONTELUKAST SODIUM 10 MG TAB PO SCH (09:49)
[2023-10-28] MEDS: PANTOPRAZOLE 40 MG TAB PO SCH ×2 (09:50→21:41)
[2023-10-28] MEDS: GABAPENTIN 300 MG CAP PO SCH (09:50)
[2023-10-28] MEDS: ASPirin 81 mg TAB PO SCH (09:50)
[2023-10-28] MEDS: DONEPEZIL HYDROCHLORIDE 5 MG TAB PO SCH (09:51)
[2023-10-28] MEDS: LOSARTAN POTASSIUM 50 MG TAB PO SCH (09:51)
[2023-10-28] MEDS: ENOXAPARIN SOD 80 MG/0.8ML SYRINGE SC SCH (09:51)
[2023-10-28] MEDS ORDERED: DOCUSATE SOD 100 MG CAP PO SCH (10:00)
[2023-10-28] MEDS ORDERED: FAMOTIDINE 20 MG TAB PO ONE (10:15)
[2023-10-28] MEDS: FAMOTIDINE 20 MG TAB PO SCH (13:30)
[2023-10-28] MEDS: ACETAMINOPHEN 325 MG TAB PO PRN (21:39)
[2023-10-29] VITALS (7 sets, daily range): BP systolic 140–150; BP diastolic 68–91; PULSE 65–69; RESP 16–18; TEMP 97.5–98.2; O2SAT 96–97
[2023-10-29 06:54] LABS: Basophils # (auto) 0.1 10 ^3/uL (0-0.2); Basophils % (auto) 1.4 % (0.0-2.0); Eosinophils # (auto) 0.4 10 ^3/uL (0-0.8); Eosinophils % (auto) 6.5 % (0.0-7.0); Hematocrit 37.9 % (36.0-46.0); Hemoglobin 12.9 g/dL (12.2-16.2); Lymphocytes # (auto) 1.9 10 ^3/uL (0.4-5.4); Lymphocytes % (auto) 30.3 % (10.0-50.0); Mean Corpuscular Hemoglobin 32.4 pg (28.0-32.0); Mean Corpuscular Volume 95.2 fL (80.0-100.0); Monocytes # (auto) 0.9 10 ^3/uL (0-1.3); Monocytes % (auto) 14.6 % (0.0-12.0); Neutrophils % (auto) 47.2 % (37.0-80.0); Nucleated Red Blood Cells % 0.1 %; Red Blood Cells 3.98 10^6/uL (4.0-5.20); Red Cell Distribution Width 15.1 % (11.8-14.3); White Blood Cell 6.4 10^3/uL (4.4-10.8)
[2023-10-29 07:11] LABS: Alanine Aminotransferase 18 U/L (7-40); Albumin 3.7 g/dL (3.2-4.8); Alkaline Phosphatase 67 U/L (46-116); Anion Gap 8 (5-15); Aspartate Aminotransferase 19 U/L (13-40); BUN/Creatinine Ratio 15.9 (10.0-20.0); Bilirubin, Total 0.6 mg/dL (0.2-1.0); Blood Urea Nitrogen 13 mg/dL (9-23); Calcium 9.3 mg/dL (8.7-10.4); Carbon Dioxide 25 mmol/L (20-30); Chloride 107 mmol/L (98-107); Glucose 90 mg/dL (74-106); Potassium 4.2 mmol/L (3.5-5.1); Sodium 140 mmol/L (136-145)
[2023-10-29] MEDS: FUROSEMIDE 20 MG TAB PO SCH (10:46)
== END 2023-10-29 20:45 | disposition home or self-care (01) | DRG 554 ==
LOC: ER 09:33 → TELE 15:17 → TELE-EAST 15:17
PROVIDERS: ADMIT Internal Medicine; ATTEND Internal Medicine
DX: M93.98 Osteochondropathy, unspecified other (principal); D68.69 Other thrombophilia; I48.21 Permanent atrial fibrillation; K29.70 Gastritis, unspecified, without bleeding; K21.9 Gastro-esophageal reflux disease without esophagitis; I11.0 Hypertensive heart disease with heart failure; I50.9 Heart failure, unspecified; R73.03 Prediabetes; K29.50 Unspecified chronic gastritis without bleeding; E78.5 Hyperlipidemia, unspecified; I25.10 Atherosclerotic heart disease of native coronary artery without angina pectoris; Z88.6 Allergy status to analgesic agent; Z79.01 Long term (current) use of anticoagulants; Z95.2 Presence of prosthetic heart valve
CPT/HCPCS: 36415; 70450; 71045; 71275; 80053; 80061; 80307; 81001; 82306; 82607; 83036; 83690; 83735; 83880; 84100; 84443; 84484; 85025; 85379; 85610; 93005; 93306; 93970; 96360; G0378

== ENCOUNTER 2023-12-28 21:30 | Inpatient (IN) | payer MEDICARE, MEDICAID ==
[~2023-12-28] VITALS: Ht 165.1 cm; Wt 73.6 kg
[~2023-12-28 21:30] MED LIST changes: +ISOS1TAB28 PO
[2023-12-28 22:45] LABS: Basophils # (auto) 0.1 10 ^3/uL (0-0.2); Eosinophils # (auto) 0.4 10 ^3/uL (0-0.8); Eosinophils % (auto) 4.8 % (0.0-7.0); Hematocrit 39.8 % (36.0-46.0); Hemoglobin 13.4 g/dL (12.2-16.2); Lymphocytes # (auto) 1.8 10 ^3/uL (0.4-5.4); Lymphocytes % (auto) 21.7 % (10.0-50.0); Mean Corpuscular Hemoglobin 32.5 pg (28.0-32.0); Mean Corpuscular Hgb Conc. 33.7 g/dL (32.0-36.0); Mean Corpuscular Volume 96.6 fL (80.0-100.0); Monocytes # (auto) 0.8 10 ^3/uL (0-1.3); Monocytes % (auto) 10.4 % (0.0-12.0); Neutrophils % (auto) 62.1 % (37.0-80.0); Nucleated Red Blood Cells % 0.1 %; Red Blood Cells 4.12 10^6/uL (4.0-5.20); Red Cell Distribution Width 15.1 % (11.8-14.3); White Blood Cell 8.1 10^3/uL (4.4-10.8)
[2023-12-28 23:01] LABS: INR 1.52 (0.9-1.15); Partial Thromboplastin Time 37.6 SEC (24.5-34.5); Prothrombin Time 15.6 sec (9.3-11.8)
[2023-12-28 23:02] LABS: Alanine Aminotransferase 17 U/L (7-40); Albumin 4.2 g/dL (3.2-4.8); Alkaline Phosphatase 76 U/L (46-116); Anion Gap 6 (5-15); Aspartate Aminotransferase 17 U/L (13-40); BUN/Creatinine Ratio 20.5 (10.0-20.0); Bilirubin, Total 0.6 mg/dL (0.2-1.0); Blood Urea Nitrogen 16 mg/dL (9-23); Calcium 9.6 mg/dL (8.7-10.4); Carbon Dioxide 26 mmol/L (20-30); Chloride 105 mmol/L (98-107); Glucose 115 mg/dL (74-106); Potassium 4.1 mmol/L (3.5-5.1); Sodium 137 mmol/L (136-145); Total Protein 7.9 g/dL (5.7-8.2)
[2023-12-29] MEDS: FUROSEMIDE 20 MG/2 ML VIAL IV ONE (07:30)
[2023-12-29 07:46] VITALS: PULSE 62; RESP 15; O2SAT 97
[2023-12-29] MEDS ORDERED: MORPHINE SULFATE INJ 2 MG/ml SYRG IV PRN (08:45)
[2023-12-29] MEDS ORDERED: NITROGLYCERIN 0.4 MG SL TAB SL PRN (08:45)
[2023-12-29] MEDS ORDERED: HYDROcodone-ACET 5/325MG TAB PO PRN (08:45)
[2023-12-29] MEDS ORDERED: Isosorbide Mononitrate (Isosorbide Mononitrate Er) 30 MG TABLETS PO SCH (10:00)
[2023-12-29] MEDS: RIVAROXABAN 20 MG TAB PO SCH (10:20)
[2023-12-29] MEDS: GABAPENTIN 300 MG CAP PO SCH (10:20)
[2023-12-29] MEDS: LOSARTAN POTASSIUM 50 MG TAB PO SCH (10:22)
[2023-12-29] MEDS: CARVEDILOL 12.5 MG TAB PO SCH (10:23)
[2023-12-29] MEDS: DOCUSATE SOD 100 MG CAP PO SCH (10:23)
[2023-12-29] MEDS: MONTELUKAST SODIUM 10 MG TAB PO SCH (10:23)
[2023-12-29] MEDS: PANTOPRAZOLE 40 MG TAB PO SCH (10:23)
[2023-12-29 11:00] VITALS: BP 136/83; PULSE 68; RESP 17; TEMP 98.7; O2SAT 97
[2023-12-29 12:56] VITALS: BP 136/83; PULSE 68; RESP 17; TEMP 98.7; O2SAT 97
[2023-12-29] MEDS: ACETAMINOPHEN 325 MG TAB PO PRN (15:59)
[2023-12-29 16:37] VITALS: BP 132/84; PULSE 64; RESP 16; TEMP 97.9; O2SAT 98
[2023-12-29 20:00] VITALS: PULSE 74
[2023-12-29 21:00] VITALS: BP 114/72; PULSE 73; RESP 16; TEMP 98.5; O2SAT 98
[2023-12-29] MEDS: DONEPEZIL HYDROCHLORIDE 5 MG TAB PO SCH (22:24)
[2023-12-30 01:00] VITALS: BP 150/89; PULSE 65; RESP 16; TEMP 98.9; O2SAT 97
[2023-12-30 05:00] VITALS: BP 139/88; PULSE 69; RESP 16; TEMP 97.8; O2SAT 96
[2023-12-30 05:59] LABS: Basophils # (auto) 0.1 10 ^3/uL (0-0.2); Basophils % (auto) 0.9 % (0.0-2.0); Eosinophils # (auto) 0.4 10 ^3/uL (0-0.8); Hematocrit 42.8 % (36.0-46.0); Hemoglobin 14.4 g/dL (12.2-16.2); Lymphocytes # (auto) 2.2 10 ^3/uL (0.4-5.4); Lymphocytes % (auto) 32.5 % (10.0-50.0); Mean Corpuscular Hemoglobin 32.7 pg (28.0-32.0); Mean Corpuscular Hgb Conc. 33.7 g/dL (32.0-36.0); Monocytes % (auto) 13.9 % (0.0-12.0); Neutrophils # (auto) 3.2 10 ^3/uL (1.6-8.6); Neutrophils % (auto) 46.7 % (37.0-80.0); Red Blood Cells 4.41 10^6/uL (4.0-5.20); Red Cell Distribution Width 14.9 % (11.8-14.3); White Blood Cell 6.9 10^3/uL (4.4-10.8)
[2023-12-30 06:26] LABS: Alanine Aminotransferase 17 U/L (7-40); Alkaline Phosphatase 70 U/L (46-116); Anion Gap 8 (5-15); BUN/Creatinine Ratio 19.6 (10.0-20.0); Blood Urea Nitrogen 18 mg/dL (9-23); Calcium 9.7 mg/dL (8.5-10.1); Carbon Dioxide 27 mmol/L (20-30); Chloride 106 mmol/L (98-107); Glucose 88 mg/dL (74-106); Potassium 4.3 mmol/L (3.5-5.1); Sodium 141 mmol/L (136-145)
[2023-12-30 06:28] LABS: Aspartate Aminotransferase 24 U/L (13-40); Bilirubin, Total 0.5 mg/dL (0.2-1.0); Total Protein 7.4 g/dL (5.7-8.2)
[2023-12-30 08:00] VITALS: PULSE 61
[2023-12-30 08:21] VITALS: BP 164/85; PULSE 61; RESP 17; TEMP 97.8; O2SAT 97
[2023-12-30 16:21] VITALS: BP 139/87; PULSE 76; RESP 16; TEMP 98.1; O2SAT 99
[2023-12-30 21:00] VITALS: BP 157/95; PULSE 71; RESP 18; TEMP 98; O2SAT 94
[2023-12-31] VITALS (8 sets, daily range): BP systolic 134–159; BP diastolic 83–93; PULSE 64–80; RESP 18–20; TEMP 36.9; O2SAT 95–98
[2023-12-31] MEDS: hydrALAZINE HCL 20 MG/ML VL IV PRN (05:37)
[2023-12-31] MEDS: MECLIZINE HCL 25 MG TAB PO PRN (09:05)
[2023-12-31] MEDS ORDERED: CARV12.544 PO (16:11)
== END 2023-12-31 18:50 | disposition home or self-care (01) | DRG 291 ==
LOC: ER 21:30 → TELE 12-29 08:31 → TELE-CENTR 12-29 09:51 → CENTRAL 12-30 23:47
PROVIDERS: ADMIT Nurse Practitioner Family; ATTEND Nurse Practitioner Acute Care
DX: I11.0 Hypertensive heart disease with heart failure (principal); I50.33 Acute on chronic diastolic (congestive) heart failure; I16.0 Hypertensive urgency; I48.91 Unspecified atrial fibrillation; M19.09 Primary osteoarthritis, other specified site; K21.9 Gastro-esophageal reflux disease without esophagitis; F03.90 Unspecified dementia, unspecified severity, without behavioral disturbance, psychotic disturbance, mood disturbance, and anxiety; Z79.01 Long term (current) use of anticoagulants; Z91.81 History of falling; Z79.899 Other long term (current) drug therapy
CPT/HCPCS: 36415; 71045; 80053; 83880; 84484; 85025; 85610; 85730; 93005; 96374; 97110; 97116; 97163; 97530; G0378

== ENCOUNTER 2024-04-07 15:36 | Inpatient (IN) | payer MEDICARE, MEDICAID ==
[~2024-04-07] VITALS: Ht 165.1 cm; Wt 74.4 kg
[~2024-04-07 15:36] MED LIST changes: +CARV12.544 PO; -OSEL75CA5 PO
[2024-04-07 16:00] VITALS: PULSE 77; RESP 19; O2SAT 94
[2024-04-07] MEDS: SODIUM CHLORIDE 0.9% 500 ML IV ONE (16:15)
[2024-04-07] MEDS: ONDANSETRON ODT 4 MG TAB PO ONE (16:41)
[2024-04-07] MEDS: MECLIZINE HCL 25 MG TAB PO ONE (16:42)
[2024-04-07] MEDS: ALPRAZolam 0.25 MG TAB PO ONE (16:42)
[2024-04-07 16:50] LABS: Basophils # (auto) 0.1 10 ^3/uL (0-0.2); Basophils % (auto) 1.3 % (0.0-2.0); Eosinophils # (auto) 0.2 10 ^3/uL (0-0.8); Eosinophils % (auto) 4.1 % (0.0-7.0); Hematocrit 31.3 % (36.0-46.0); Hemoglobin 10.8 g/dL (12.2-16.2); Lymphocytes # (auto) 1.5 10 ^3/uL (0.4-5.4); Lymphocytes % (auto) 28.9 % (10.0-50.0); Mean Corpuscular Hemoglobin 33.5 pg (28.0-32.0); Mean Corpuscular Hgb Conc. 34.6 g/dL (32.0-36.0); Mean Corpuscular Volume 96.8 fL (80.0-100.0); Monocytes # (auto) 0.8 10 ^3/uL (0-1.3); Monocytes % (auto) 15.7 % (0.0-12.0); Neutrophils # (auto) 2.7 10 ^3/uL (1.6-8.6); Platelet Count (auto) 128 10^3/uL (140-450); Red Blood Cells 3.23 10^6/uL (4.0-5.20); Red Cell Distribution Width 14.5 % (11.8-14.3); White Blood Cell 5.4 10^3/uL (4.4-10.8)
[2024-04-07 17:05] LABS: Anion Gap 9 (5-15); Carbon Dioxide 22 mmol/L (20-31); Chloride 112 mmol/L (98-107); Potassium 3.2 mmol/L (3.5-5.1); Sodium 143 mmol/L (136-145)
[2024-04-07 17:07] LABS: Calcium 7.5 mg/dL (8.7-10.4)
[2024-04-07 17:11] LABS: Blood Urea Nitrogen 15 mg/dL (9-23); Glucose 110 mg/dL (74-106)
[2024-04-07 17:51] LABS: Rapid Influenza A Negative (Negative); Rapid Influenza B Negative (Negative)
[2024-04-07 17:54] LABS: COVID19 ANTIGEN SOFIA FIA NEGATIVE (NEGATIVE)
[2024-04-07] MEDS: POTASSIUM CHL 20 Meq TABLET PO ONE (18:41)
[2024-04-07 19:15] VITALS: PULSE 68; RESP 15; O2SAT 95
[2024-04-07] MEDS ORDERED: ACETAMINOPHEN 325 MG TAB PO PRN (20:30)
[2024-04-07] MEDS ORDERED: MORPHINE SULFATE INJ 2 MG/ml SYRG IV PRN (20:30)
[2024-04-07] MEDS ORDERED: NITROGLYCERIN 0.4 MG SL TAB SL PRN (20:30)
[2024-04-07] MEDS: SODIUM CHLOR 0.9% PF (SALINE LOCK) 10ML VIAL/SYR IV SCH (22:29)
[2024-04-07] MEDS: DONEPEZIL HYDROCHLORIDE 5 MG TAB PO SCH (22:30)
[2024-04-07 23:46] LABS: Urine Bacteria FEW /hpf (None Seen); Urine Blood Negative /uL (Negative); Urine Clarity Clear (Clear); Urine Color Light-Yellow (Yellow); Urine Protein, UAD Negative (Negative); Urine Specific Gravity 1.007 (1.001-1.035); Urine Urobilinogen Normal (Negative); Urine WBC 14 /hpf (0 - 5); Urine pH 5.5 (5.0-9.0)
[2024-04-08] VITALS (8 sets, daily range): BP systolic 132–157; BP diastolic 77–92; PULSE 64–69; RESP 16–20; TEMP 97.5–98.2; O2SAT 91–96
[2024-04-08] MEDS: HYDROcodone-ACET 5/325MG TAB PO PRN (00:33)
[2024-04-08 08:10] LABS: Basophils # (auto) 0.1 10 ^3/uL (0-0.2); Basophils % (auto) 1.3 % (0.0-2.0); Eosinophils # (auto) 0.3 10 ^3/uL (0-0.8); Eosinophils % (auto) 5.4 % (0.0-7.0); Hematocrit 39.2 % (36.0-46.0); Hemoglobin 13.2 g/dL (12.2-16.2); Lymphocytes # (auto) 1.8 10 ^3/uL (0.4-5.4); Lymphocytes % (auto) 34.8 % (10.0-50.0); Mean Corpuscular Hemoglobin 32.9 pg (28.0-32.0); Mean Corpuscular Hgb Conc. 33.8 g/dL (32.0-36.0); Mean Corpuscular Volume 97.4 fL (80.0-100.0); Monocytes # (auto) 0.9 10 ^3/uL (0-1.3); Monocytes % (auto) 18.2 % (0.0-12.0); Neutrophils % (auto) 40.3 % (37.0-80.0); Nucleated Red Blood Cells % 0.1 %; Platelet Count (auto) 145 10^3/uL (140-450); Red Blood Cells 4.03 10^6/uL (4.0-5.20); Red Cell Distribution Width 14.5 % (11.8-14.3)
[2024-04-08 08:20] LABS: Alanine Aminotransferase 16 U/L (7-40); Alkaline Phosphatase 60 U/L (46-116); Anion Gap 8 (5-15); BUN/Creatinine Ratio 14.1 (10.0-20.0); Blood Urea Nitrogen 10 mg/dL (9-23); Calcium 9.1 mg/dL (8.7-10.4); Carbon Dioxide 25 mmol/L (20-31); Chloride 110 mmol/L (98-107); Glucose 81 mg/dL (74-106); Potassium 4.1 mmol/L (3.5-5.1); Sodium 143 mmol/L (136-145)
[2024-04-08] MEDS ORDERED: PATIENTS OWN MEDICATION (Carvedilol 1 TAB) PO SCH (08:20)
[2024-04-08 08:21] LABS: Albumin 3.9 g/dL (3.2-4.8); Aspartate Aminotransferase 21 U/L (13-40); Bilirubin, Total 0.8 mg/dL (0.2-1.0)
[2024-04-08] MEDS ORDERED: PATIENTS OWN MEDICATION (Donepezil Hydrochloride (Donepezil Hcl) 1 TAB) PO SCH (10:00)
[2024-04-08] MEDS: CARVEDILOL 12.5 MG TAB PO SCH (10:22)
[2024-04-08] MEDS: GABAPENTIN 300 MG CAP PO SCH (10:23)
[2024-04-08] MEDS: OXYBUTYNIN CHL 5 MG TAB PO SCH (10:23)
[2024-04-08] MEDS: cefTRIAXone 1GM/50ML D5W 50 ML IV ONE (12:40)
[2024-04-08] MEDS: RIVAROXABAN 15 MG TAB PO SCH (16:39)
[2024-04-08] MEDS ORDERED: RIVAROXABAN 20 MG TAB PO SCH (17:30)
[2024-04-09 05:00] VITALS: BP 154/85; PULSE 67; RESP 18; TEMP 98.7; O2SAT 97
[2024-04-09 07:11] LABS: Basophils # (auto) 0.1 10 ^3/uL (0-0.2); Basophils % (auto) 1.4 % (0.0-2.0); Eosinophils # (auto) 0.4 10 ^3/uL (0-0.8); Eosinophils % (auto) 7.5 % (0.0-7.0); Hematocrit 40.4 % (36.0-46.0); Hemoglobin 13.6 g/dL (12.2-16.2); Lymphocytes # (auto) 2.1 10 ^3/uL (0.4-5.4); Lymphocytes % (auto) 35.3 % (10.0-50.0); Mean Corpuscular Hemoglobin 32.7 pg (28.0-32.0); Mean Corpuscular Hgb Conc. 33.6 g/dL (32.0-36.0); Mean Corpuscular Volume 97.5 fL (80.0-100.0); Monocytes # (auto) 0.8 10 ^3/uL (0-1.3); Neutrophils # (auto) 2.5 10 ^3/uL (1.6-8.6); Neutrophils % (auto) 41.8 % (37.0-80.0); Nucleated Red Blood Cells % 0.1 %; Platelet Count (auto) 154 10^3/uL (140-450); Red Blood Cells 4.14 10^6/uL (4.0-5.20); Red Cell Distribution Width 14.6 % (11.8-14.3); White Blood Cell 5.9 10^3/uL (4.4-10.8)
[2024-04-09 07:23] LABS: Anion Gap 6 (5-15); Carbon Dioxide 27 mmol/L (20-31); Chloride 108 mmol/L (98-107); Potassium 4.1 mmol/L (3.5-5.1); Sodium 141 mmol/L (136-145)
[2024-04-09 07:24] LABS: Calcium 9.4 mg/dL (8.7-10.4)
[2024-04-09 07:29] LABS: BUN/Creatinine Ratio 18.1 (10.0-20.0); Blood Urea Nitrogen 15 mg/dL (9-23); Glucose 82 mg/dL (74-106)
[2024-04-09 08:00] VITALS: BP 179/91; PULSE 80; PULSE 81; RESP 20; TEMP 97.4; O2SAT 95
[2024-04-09] MEDS: IOHEXOL 350 MG/ML 100ML IJ ONE (08:20)
[2024-04-09] MEDS: cefTRIAXone 1GM/50ML D5W 50 ML IV SCH (10:04)
[2024-04-09 12:00] VITALS: BP 154/79; PULSE 58; RESP 18; TEMP 98.1; O2SAT 93
[2024-04-09] MEDS: hydrALAZINE HCL 20 MG/ML VL IV PRN (14:47)
[2024-04-09 16:00] VITALS: BP_SYST 101; BP_SYST 146; BP_SYST 151; BP_DIAS 76; BP_DIAS 83; BP_DIAS 89; PULSE 76; RESP 20; TEMP 98; O2SAT 96
[2024-04-09 20:30] VITALS: PULSE 75; PULSE 86; RESP 17; O2SAT 95
[2024-04-09 21:00] VITALS: BP_SYST 162; BP_SYST 164; BP_SYST 165; BP_DIAS 101; BP_DIAS 86; PULSE 78; RESP 19; TEMP 98.5; O2SAT 96
[2024-04-09] MEDS: guaiFENesin-DM 100/10mg/5ml SYR PO PRN (22:32)
[2024-04-10] VITALS (8 sets, daily range): BP systolic 0–179; BP diastolic 87–98; PULSE 70–95; RESP 18–19; TEMP 97.5–98.4; O2SAT 92–98
[2024-04-10] MEDS: ONDANSETRON HCL 4 MG/2 ML VIAL IV PRN (05:36)
[2024-04-10] MEDS: DOCUSATE SOD 100 MG CAP PO PRN (05:48)
[2024-04-10] MEDS: METOCLOPRAMIDE HCL 5MG/ml INJ 2ml VIAL IV ONE (08:14)
[2024-04-10] MEDS ORDERED: METOCLOPRAMIDE HCL 5MG/ml INJ 2ml VIAL IV PRN (11:45)
[2024-04-10] MEDS: CARVEDILOL 12.5 MG TAB PO ONE (12:30)
[2024-04-10] MEDS: LACTATED RINGER'S 1,000 ML IV SCH (12:30)
[2024-04-10] MEDS: PANTOPRAZOLE 40 MG/10 ML VIAL INJ IV SCH (22:09)
[2024-04-10] MEDS: CARVEDILOL 12.5 MG TAB PO SCH (22:10)
[2024-04-11] VITALS (7 sets, daily range): BP systolic 0–159; BP diastolic 77–96; PULSE 68–93; RESP 17–19; TEMP 36.8; O2SAT 94–96
[2024-04-11 03:19] LABS: Basophils # (auto) 0.1 10 ^3/uL (0-0.2); Basophils % (auto) 0.7 % (0.0-2.0); Eosinophils # (auto) 0.4 10 ^3/uL (0-0.8); Eosinophils % (auto) 5.1 % (0.0-7.0); Hematocrit 45.6 % (36.0-46.0); Hemoglobin 15.5 g/dL (12.2-16.2); Lymphocytes # (auto) 2.1 10 ^3/uL (0.4-5.4); Lymphocytes % (auto) 29.9 % (10.0-50.0); Mean Corpuscular Hemoglobin 32.9 pg (28.0-32.0); Mean Corpuscular Volume 96.8 fL (80.0-100.0); Monocytes # (auto) 0.9 10 ^3/uL (0-1.3); Monocytes % (auto) 13.2 % (0.0-12.0); Neutrophils # (auto) 3.5 10 ^3/uL (1.6-8.6); Neutrophils % (auto) 51.1 % (37.0-80.0); Nucleated Red Blood Cells % 0.1 %; Platelet Count (auto) 174 10^3/uL (140-450); Red Blood Cells 4.71 10^6/uL (4.0-5.20); Red Cell Distribution Width 14.6 % (11.8-14.3); White Blood Cell 6.9 10^3/uL (4.4-10.8)
[2024-04-11 03:36] LABS: INR 1.7 (0.9-1.15); Partial Thromboplastin Time 41.1 SEC (24.5-34.5); Prothrombin Time 17.3 sec (9.3-11.8)
[2024-04-11 03:42] LABS: Alanine Aminotransferase 16 U/L (7-40); Albumin 4.1 g/dL (3.2-4.8); Alkaline Phosphatase 66 U/L (46-116); Anion Gap 7 (5-15); Aspartate Aminotransferase 18 U/L (13-40); BUN/Creatinine Ratio 14.8 (10.0-20.0); Blood Urea Nitrogen 12 mg/dL (9-23); Calcium 9.7 mg/dL (8.7-10.4); Carbon Dioxide 27 mmol/L (20-31); Chloride 106 mmol/L (98-107); Glucose 105 mg/dL (74-106); Potassium 4.4 mmol/L (3.5-5.1); Sodium 140 mmol/L (136-145)
[2024-04-11 03:43] LABS: Bilirubin, Total 0.7 mg/dL (0.2-1.0); Total Protein 7.5 g/dL (5.7-8.2)
[2024-04-11] MEDS ORDERED: MIDAZOLAM HCL 5 MG/ML-1ML VIAL ONE (10:41)
[2024-04-11] MEDS ORDERED: SODIUM CHLORIDE LOCK 0 ML ONE (10:41)
[2024-04-11] MEDS ORDERED: LIDOCAINE VISCOUS 2% 15ML UD ONE (10:41)
[2024-04-11] MEDS ORDERED: fentaNYL CITRATE 100 MCG/2 ML VL ONE (10:42)
[2024-04-11] MEDS ORDERED: diphenhdrAMINE HCL 50 MG/1 ML VL ONE (10:42)
[2024-04-11 14:31] LABS: COVID19 ANTIGEN SOFIA FIA NEGATIVE (NEGATIVE)
[2024-04-12] MEDS ORDERED: CEFT1INJ6 IV (01:59)
== END 2024-04-11 20:45 | DRG 312 ==
LOC: EDUNIT# 15:36 → ER 15:36 → EDBD 15:36 → TELE 20:29 → TELE-WESTW 20:29 → EDUNIT# 20:29 → TELE-WESTW 23:35
PROVIDERS: ADMIT Nurse Practitioner Family; ATTEND Family Medicine
PROC: 05HC33Z Insertion of Infusion Device into Left Basilic Vein, Percutaneous Approach (ICD-10-PCS; principal; 2024-04-11)
PROC: B54NZZA Ultrasonography of Left Upper Extremity Veins, Guidance (ICD-10-PCS; 2024-04-11)
DX: I95.1 Orthostatic hypotension (principal); N39.0 Urinary tract infection, site not specified; E87.6 Hypokalemia; H81.10 Benign paroxysmal vertigo, unspecified ear; D64.9 Anemia, unspecified; I10 Essential (primary) hypertension; Z20.822 Contact with and (suspected) exposure to COVID-19; K21.9 Gastro-esophageal reflux disease without esophagitis; Z96.642 Presence of left artificial hip joint; Z95.0 Presence of cardiac pacemaker; Z95.2 Presence of prosthetic heart valve; Z90.49 Acquired absence of other specified parts of digestive tract; Z82.49 Family history of ischemic heart disease and other diseases of the circulatory system; B96.20 Unspecified Escherichia coli [E. coli] as the cause of diseases classified elsewhere
CPT/HCPCS: 36415; 71045; 80048; 80053; 81001; 84443; 84484; 85025; 85610; 85730; 86850; 86900; 86901; 87086; 87088; 87186; 87426; 87804; 93005; 93306; 93886; 96360; 97163; 99291; G0378; J2250; J2405; J2470; Q0162

== ENCOUNTER 2024-04-25 04:45 | Inpatient (IN) | payer MEDICARE, MEDICAID ==
[~2024-04-25] VITALS: Ht 160 cm; Wt 73.1 kg
[~2024-04-25 04:45] MED LIST changes: +CEFT1INJ6 IV
[2024-04-25 05:30] VITALS: PULSE 62; RESP 14; O2SAT 97
[2024-04-25 07:37] LABS: Basophils # (auto) 0.1 10 ^3/uL (0-0.2); Basophils % (auto) 1.2 % (0.0-2.0); Eosinophils # (auto) 0.4 10 ^3/uL (0-0.8); Eosinophils % (auto) 6.7 % (0.0-7.0); Hematocrit 42.2 % (36.0-46.0); Hemoglobin 14.5 g/dL (12.2-16.2); Lymphocytes # (auto) 2.1 10 ^3/uL (0.4-5.4); Lymphocytes % (auto) 32.7 % (10.0-50.0); Mean Corpuscular Hemoglobin 33.2 pg (28.0-32.0); Mean Corpuscular Hgb Conc. 34.3 g/dL (32.0-36.0); Mean Corpuscular Volume 96.9 fL (80.0-100.0); Monocytes # (auto) 0.7 10 ^3/uL (0-1.3); Monocytes % (auto) 10.6 % (0.0-12.0); Neutrophils # (auto) 3.1 10 ^3/uL (1.6-8.6); Neutrophils % (auto) 48.8 % (37.0-80.0); Nucleated Red Blood Cells % 0.1 %; Platelet Count (auto) 196 10^3/uL (140-450); Red Blood Cells 4.36 10^6/uL (4.0-5.20); Red Cell Distribution Width 14.2 % (11.8-14.3); White Blood Cell 6.4 10^3/uL (4.4-10.8)
[2024-04-25 07:39] LABS: Chloride 106 mmol/L (98-107); Potassium 4.5 mmol/L (3.5-5.1); Sodium 141 mmol/L (136-145)
[2024-04-25 07:40] LABS: Anion Gap 6 (5-15); Carbon Dioxide 29 mmol/L (20-31)
[2024-04-25 07:45] LABS: BUN/Creatinine Ratio 20.2 (10.0-20.0); Blood Urea Nitrogen 17 mg/dL (9-23); Glucose 112 mg/dL (74-106)
[2024-04-25 07:46] LABS: Calcium 9.7 mg/dL (8.7-10.4)
[2024-04-25] MEDS ORDERED: cloNIDine 0.1 mg/24hr 7 DAY PATCH TD ONE (09:00)
[2024-04-25 09:19] VITALS: PULSE 8; RESP 18; O2SAT 98
[2024-04-25] MEDS: cloNIDine HCL 0.1 MG TAB PO ONE (09:19)
[2024-04-25 10:02] LABS: Urine Bacteria FEW /hpf (None Seen); Urine Blood Negative /uL (Negative); Urine Clarity Clear (Clear); Urine Color Colorless (Yellow); Urine Protein, UAD Negative (Negative); Urine Urobilinogen Normal (Negative); Urine WBC <1 /hpf (0 - 5); Urine pH 6.5 (5.0-9.0)
[2024-04-25] MEDS ORDERED: PATIENTS OWN MEDICATION (Hydralazine Hcl 1 TAB) PO SCH (10:15)
[2024-04-25] MEDS ORDERED: PATIENTS OWN MEDICATION (Carvedilol 25 MG) PO SCH (10:15)
[2024-04-25] MEDS ORDERED: IRBESARTAN PO SCH ×2 (10:15→10:30)
[2024-04-25] MEDS ORDERED: RIVAROXABAN 20 MG TAB PO SCH (10:15)
[2024-04-25] MEDS ORDERED: PATIENTS OWN MEDICATION (Isosorbide Mononitrate (Isosorbide Mononitrate Er) 30 MG) PO SCH (10:15)
[2024-04-25] MEDS ORDERED: hydrALAZINE HCL 20 MG/ML VL IV PRN (10:15)
[2024-04-25] MEDS ORDERED: ACETAMINOPHEN 325 MG TAB PO PRN (10:30)
[2024-04-25] MEDS ORDERED: FUROSEMIDE 20 MG TAB PO SCH (10:30)
[2024-04-25] MEDS ORDERED: HYDROmorphone HCL 2 MG/ML VL/or syr IV PRN ×2 (10:30→10:45)
[2024-04-25] MEDS ORDERED: DOCUSATE SOD 100 MG CAP PO PRN ×2 (10:30→10:45)
[2024-04-25] MEDS ORDERED: HYDROcodone-ACET 5/325MG TAB PO PRN ×2 (10:30→10:45)
[2024-04-25] MEDS: cefTRIAXone 1GM/50ML D5W 50 ML IV ONE (11:00)
[2024-04-25] MEDS: cefTRIAXone 1GM/50ML D5W 50 ML IV SCH (13:22)
[2024-04-25] MEDS: hydrALAZINE HCL 20 MG/ML VL IV PRN (13:38)
[2024-04-25] MEDS ORDERED: SODIUM CHLOR 0.9% PF (SALINE LOCK) 10ML VIAL/SYR IV SCH (14:00)
[2024-04-25] MEDS: SODIUM CHLOR 0.9% PF (SALINE LOCK) 10ML VIAL/SYR IV SCH (14:00)
[2024-04-25] MEDS: KETOROLAC TROMETH 30 MG/ML 1ML VIAL IV ONE (15:10)
[2024-04-25] MEDS: amLODIPine BESYLATE 5 MG TAB PO ONE (15:11)
[2024-04-25] MEDS: ISOSORBIDE MONONITRATE 20 MG TAB PO SCH (16:13)
[2024-04-25] MEDS: hydrALAZINE HCL 25 MG TAB PO SCH (16:14)
[2024-04-25] MEDS: RIVAROXABAN 20 MG TAB PO SCH (19:00)
[2024-04-25 19:57] VITALS: PULSE 90; O2SAT 93
[2024-04-25 20:00] VITALS: PULSE 90; RESP 16; O2SAT 93
[2024-04-25] MEDS: CARVEDILOL 12.5 MG TAB PO SCH (22:00)
[2024-04-25] MEDS ORDERED: DOCUSATE SOD 100 MG CAP PO SCH ×2 (22:00)
[2024-04-26] VITALS (8 sets, daily range): BP systolic 93–121; BP diastolic 55–76; PULSE 68–89; RESP 15–19; TEMP 97–99; O2SAT 92–96
[2024-04-26] MEDS ORDERED: OXYB5TAB14 PO (01:59)
[2024-04-26] MEDS ORDERED: PANT40T PO (01:59)
[2024-04-26] MEDS ORDERED: CLON0.2T PO (01:59)
[2024-04-26] MEDS ORDERED: RIV15T PO (01:59)
[2024-04-26] MEDS ORDERED: BISA10SU45 RE (02:04)
[2024-04-26] MEDS ORDERED: ACET325T82 PO (02:04)
[2024-04-26] MEDS ORDERED: MAGN400S25 PO (02:04)
[2024-04-26 05:15] LABS: Basophils # (auto) 0.1 10 ^3/uL (0-0.2); Basophils % (auto) 1.1 % (0.0-2.0); Eosinophils # (auto) 0.3 10 ^3/uL (0-0.8); Eosinophils % (auto) 3.9 % (0.0-7.0); Hematocrit 40.7 % (36.0-46.0); Hemoglobin 13.8 g/dL (12.2-16.2); Lymphocytes # (auto) 2.5 10 ^3/uL (0.4-5.4); Lymphocytes % (auto) 32.1 % (10.0-50.0); Mean Corpuscular Hemoglobin 32.7 pg (28.0-32.0); Mean Corpuscular Hgb Conc. 33.8 g/dL (32.0-36.0); Mean Corpuscular Volume 96.6 fL (80.0-100.0); Monocytes # (auto) 0.9 10 ^3/uL (0-1.3); Monocytes % (auto) 11.6 % (0.0-12.0); Neutrophils % (auto) 51.3 % (37.0-80.0); Nucleated Red Blood Cells % 0.1 %; Platelet Count (auto) 186 10^3/uL (140-450); Red Blood Cells 4.21 10^6/uL (4.0-5.20); Red Cell Distribution Width 14.4 % (11.8-14.3); White Blood Cell 7.8 10^3/uL (4.4-10.8)
[2024-04-26 05:38] LABS: Alanine Aminotransferase 22 U/L (7-40); Albumin 3.8 g/dL (3.2-4.8); Alkaline Phosphatase 60 U/L (46-116); Anion Gap 7 (5-15); Aspartate Aminotransferase 20 U/L (13-40); BUN/Creatinine Ratio 15.7 (10.0-20.0); Bilirubin, Total 0.7 mg/dL (0.2-1.0); Blood Urea Nitrogen 22 mg/dL (9-23); Calcium 9.9 mg/dL (8.7-10.4); Carbon Dioxide 28 mmol/L (20-31); Chloride 105 mmol/L (98-107); Glucose 91 mg/dL (74-106); Potassium 4.8 mmol/L (3.5-5.1); Sodium 140 mmol/L (136-145); Total Protein 7.2 g/dL (5.7-8.2)
[2024-04-26] MEDS ORDERED: MONTELUKAST SODIUM 10 MG TAB PO SCH (10:00)
[2024-04-26] MEDS ORDERED: OXYBUTYNIN CHLORIDE 10 MG PO SCH (10:00)
[2024-04-26] MEDS ORDERED: PATIENTS OWN MEDICATION (Omeprazole (Gnp Omeprazole) 1 TAB) PO SCH ×2 (10:00)
[2024-04-26] MEDS ORDERED: GABAPENTIN 300 MG CAP PO SCH (10:00)
[2024-04-26] MEDS ORDERED: PATIENTS OWN MEDICATION (Donepezil Hydrochloride (Donepezil Hcl) 10 MG) PO SCH (10:00)
[2024-04-26] MEDS: PANTOPRAZOLE 40 MG TAB PO SCH (10:46)
[2024-04-26] MEDS: FUROSEMIDE 20 MG TAB PO SCH (10:47)
[2024-04-26] MEDS: LOSARTAN POTASSIUM 50 MG TAB PO SCH (10:48)
[2024-04-26] MEDS: OXYBUTYNIN CHL 5 MG TAB PO SCH (10:48)
[2024-04-26] MEDS: DONEPEZIL HYDROCHLORIDE 5 MG TAB PO SCH (10:49)
[2024-04-26] MEDS: GABAPENTIN 300 MG CAP PO SCH (10:49)
[2024-04-26] MEDS: MONTELUKAST SODIUM 10 MG TAB PO SCH (10:49)
[2024-04-26] MEDS: amLODIPine BESYLATE 5 MG TAB PO SCH (10:50)
[2024-04-26] MEDS: hydrALAZINE HCL 10 MG TAB PO SCH (14:30)
[2024-04-26] MEDS: NIFEdipine ER 30 MG TAB PO ONE (14:35)
[2024-04-26] MEDS: POLYETHYLENE GLYCOL 17 GM PWDR PO ONE (16:00)
[2024-04-26] MEDS: RIVAROXABAN 15 MG TAB PO SCH (17:48)
[2024-04-26] MEDS: ACETAMINOPHEN 325 MG TAB PO PRN (21:05)
[2024-04-26] MEDS: SENNA 8.6 MG TAB PO SCH (21:05)
[2024-04-26] MEDS: NIFEdipine ER 30 MG TAB PO SCH (21:08)
[2024-04-27 01:00] VITALS: BP 96/56; PULSE 84; RESP 16; TEMP 98; O2SAT 97
[2024-04-27 05:07] VITALS: BP_SYST 47; BP_SYST 94; BP_DIAS 50; PULSE 85; RESP 16; TEMP 98.1; O2SAT 91; O2SAT 96
[2024-04-27 08:00] VITALS: PULSE 65
[2024-04-27 08:12] LABS: Basophils # (auto) 0.1 10 ^3/uL (0-0.2); Basophils % (auto) 1.2 % (0.0-2.0); Eosinophils # (auto) 0.5 10 ^3/uL (0-0.8); Eosinophils % (auto) 8.1 % (0.0-7.0); Hematocrit 40.2 % (36.0-46.0); Hemoglobin 13.4 g/dL (12.2-16.2); Lymphocytes # (auto) 1.9 10 ^3/uL (0.4-5.4); Lymphocytes % (auto) 29.6 % (10.0-50.0); Mean Corpuscular Hemoglobin 32.3 pg (28.0-32.0); Mean Corpuscular Hgb Conc. 33.3 g/dL (32.0-36.0); Monocytes # (auto) 0.8 10 ^3/uL (0-1.3); Monocytes % (auto) 11.6 % (0.0-12.0); Neutrophils # (auto) 3.3 10 ^3/uL (1.6-8.6); Neutrophils % (auto) 49.5 % (37.0-80.0); Nucleated Red Blood Cells % 0.1 %; Platelet Count (auto) 192 10^3/uL (140-450); Red Blood Cells 4.15 10^6/uL (4.0-5.20); Red Cell Distribution Width 14.6 % (11.8-14.3); White Blood Cell 6.6 10^3/uL (4.4-10.8)
[2024-04-27 08:39] LABS: Alanine Aminotransferase 21 U/L (7-40); Albumin 3.9 g/dL (3.2-4.8); Alkaline Phosphatase 61 U/L (46-116); Anion Gap 7 (5-15); Aspartate Aminotransferase 19 U/L (13-40); Blood Urea Nitrogen 30 mg/dL (9-23); Carbon Dioxide 26 mmol/L (20-31); Chloride 103 mmol/L (98-107); Glucose 97 mg/dL (74-106); Potassium 4.2 mmol/L (3.5-5.1); Sodium 136 mmol/L (136-145)
[2024-04-27 08:40] LABS: Bilirubin, Total 0.6 mg/dL (0.2-1.0); Total Protein 7.2 g/dL (5.7-8.2)
[2024-04-27 09:29] VITALS: BP 91/53; PULSE 70; RESP 18; TEMP 98.2; O2SAT 94
[2024-04-27] MEDS ORDERED: NIFE1TAB31 PO (10:07)
[2024-04-27] MEDS: cefTRIAXone 1GM/50ML D5W 50 ML IV ONE (10:47)
[2024-04-27] MEDS: POLYETHYLENE GLYCOL 17 GM PWDR PO SCH (10:48)
[2024-04-27 12:44] VITALS: BP 111/58; PULSE 62; RESP 18; TEMP 97.6; O2SAT 94
[2024-04-27 13:00] VITALS: BP 91/53; PULSE 94; TEMP 36.4
== END 2024-04-27 15:20 | disposition home or self-care (01) | DRG 305 ==
LOC: ER 04:45 → EDBD 04:45 → TELE 10:22 → ER 10:23 → TELE-WESTW 19:50
PROVIDERS: ADMIT Internal Medicine; ATTEND Nurse Practitioner Acute Care
DX: I16.0 Hypertensive urgency (principal); I50.32 Chronic diastolic (congestive) heart failure; I24.89 Other forms of acute ischemic heart disease; I11.0 Hypertensive heart disease with heart failure; F03.90 Unspecified dementia, unspecified severity, without behavioral disturbance, psychotic disturbance, mood disturbance, and anxiety; K21.9 Gastro-esophageal reflux disease without esophagitis; E78.5 Hyperlipidemia, unspecified; K59.00 Constipation, unspecified; E66.9 Obesity, unspecified; Z88.5 Allergy status to narcotic agent; Z79.899 Other long term (current) drug therapy; Z95.0 Presence of cardiac pacemaker; Z95.2 Presence of prosthetic heart valve; Z96.642 Presence of left artificial hip joint; Z68.27 Body mass index [BMI] 27.0-27.9, adult
CPT/HCPCS: 36415; 71045; 80048; 80053; 81001; 83880; 84484; 85025; 87081; 93005; 96365; 96375; 99291; G0378; J1885

== ENCOUNTER 2024-07-01 13:21 | Inpatient (IN) | payer MEDICARE, MEDICAID ==
[~2024-07-01] VITALS: Ht 165.1 cm; Wt 74.2 kg
[~2024-07-01 13:21] MED LIST changes: -ACET-1079 PO; -ACET-1080 PO; +ACET325T82 PO; -AUG875T PO; -AZIT500T66 PO; +BISA10SU45 RE; -CARV12.544 PO; -CEFT1INJ6 IV; -FURO1TAB33 PO; -HYDR50TA47 PO; -IRBE300T43 PO; -ISOS1TAB28 PO; -LINE1TAB6 PO; +MAGN400S25 PO; -METH4PAK PO; -MONT-8 PO; +NIFE1TAB31 PO; -OMEP20TA PO; -OXYB5SYP4 PO; +OXYB5TAB14 PO; +PANT40T PO; -PROM1SOL4 PO; +RIV15T PO; -RIVA20TA PO; -[UNRECOGNIZED DRUG - CODE] PO
--- NOTE | 2024-07-01 14:19 | ED.PDOC ---
History of Present Illness HPI Comments 83Y F with PMHx HTN, Afib, CHF, dementia, and pacemaker presents to ED via EMS for chief complaint syncope. Per EMS, pt's family stated that pt walked into kitchen when she suddenly became weak and turned pale. Pt was walked to living room by son where she then became unresponsive. Upon EMS arrival systolic BP was 83. Pt was then provided with fluids by EMS and BP increased to 120/80. EMS states that daughter believes pt is dehydrated and she takes a diuretic medication. Chief Complaint: Syncope Time Seen by MD: 13:30 Primary Care Provider: "DASHAWN" Reviewed Notes: Nurses Notes, Hat Marker Notes, Medications, Allergies Allergies: Coded Allergies: Morphine (Verified Allergy, Unknown, 12/28/22) Home Meds Active Scripts Nifedipine (Nifedipine Er) 30 Mg Tab, 60 MG PO BID for 30 Days, #120 TAB 3 Refills Prov:DMITRI [employer]CHO[employer] DIRECTOR 04/27/24 Ondansetron Odt 4MG Tab (ZOFRAN PO) 4 Mg Tb, 1 TAB PO Q8HPRN PRN, #10 TAB as needed for painODT TAB-DISSOLVE IN MOUTH, THEN SWALLOW Prov:ROLF YUAN SCHOOL DIRECTOR 09/09/23 Hydrocodone-Acetaminophen (Hydrocodone Bitartrate/AC 5-325 mg) 1 Tab Tab, 1 TAB PO QID PRN, #20 TAB Prov:DAVI SAGASTUME MD 06/08/23 Reported Medications Bisacodyl (Dulcolax) 10 Mg Sup, 10 MG RE DAILY PRN for FOR CONSTIPATION, SUPP 04/26/24 Magnesium Hydroxide (Milk Of Magnesia) 400 Mg/5 Ml Bernie, 30 ML PO DAILY PRN for FOR CONSTIPATION, ML 04/26/24 Acetaminophen (Apap) 325 Mg Tab, 2 TAB PO Q4HPRN PRN for mild pain 1-3, TAB 04/26/24 Pantoprazole Sodium Sesquihydr (Pantoprazole Sodium) 40 Mg Tab, 1 TAB PO BID 04/26/24 Oxybutynin Chloride (Oxybutynin Chloride) 5 Mg Tab, 10 MG PO DAILY 04/26/24 Rivaroxaban (Xarelto Tablet) 15 Mg Tb, 1 TAB PO DAILY 04/26/24 Docusate Sodium (Colace) 100 Mg Cap, 1 CAP PO BID PRN for FOR CONSTIPATION, #30 CAP 06/22/21 Gabapentin (Gabapentin) 300 Mg Cap, 300 MG PO DAILY for 30 Days, MG 06/22/21 Donepezil Hydrochloride (DONEPEZIL HCL) 10 Mg Tab, 10 MG PO DAILY for 30 Days, MG 06/22/21 Carvedilol (Carvedilol) 25 Mg Tab, 25 MG PO Q12HR for 30 Days, MG 06/22/21 Information Source: Patient, Emergency Med Personnel Mode of Arrival: EMS Severity: Mild Timing: Hours Duration: Since onset Prehospital treatment: 12 Lead EKG, IVF Past Medical History PAST MEDICAL HISTORY: AFIB, Arthritis, CHF, Dementia, GERD, HTN Surgical History: Pacemaker PROTOZOOLOGIST History: No Pertinent PROTOZOOLOGIST History Family History Family History: Reviewed,noncontributory to illness Social History Smoker: Non-Smoker Alcohol: Denies ETOH Use Drugs: Denies Drug Use Lives In: Home Constitutional: reports: weakness; denies: chills, diaphoresis, fatigue, fever, malaise, sweats, others EENTM: denies: blurred vision, double vision, ear bleeding, ear discharge, ear drainage, ear pain, ear ringing, eye pain, eye redness, hearing loss, mouth pain, mouth swelling, nasal discharge, nose bleeding, nose congestion, nose pain, photophobia, tearing, throat pain, throat swelling, voice changes, others Respiratory: denies: cough, hemoptysis, orthopnea, SOB at rest, shortness of breath, SOB with excertion, stridor, wheezing, others Cardiovascular: denies: chest pain, dizzy spells, diaphoresis, Dyspnea on exertion, edema, irregular heart beat, left arm pain, lightheadedness, palpitations, PND, syncope, others Gastrointestinal: denies: abdomen distended, abdominal pain, blood streaked bowels, constipated, diarrhea, dysphagia, difficulty swallowing, hematemesis, melena, nausea, poor appetite, poor fluid intake, rectal bleeding, rectal pain, vomiting, others Genitourinary: denies: abnormal vagina bleeding, burning, dyspareunia, dysuria, flank pain, frequency, hematuria, incontinence, pain, , vagina discharge, urgency, others Neurological: denies: dizziness, fainting, headache, left sided numbness, left sided weakness, numbness, paresthesia, pre-existing deficit, right sided numbness, right sided weakness, seizure, speech problems, tingling, tremors, weakness, others Musculoskeletal: denies: back pain, gout, joint pain, joint swelling, muscle pain, muscle stiffness, neck pain, others Integumetry: denies: bruises, change in color, change in hair/nails, dryness, laceration, lesions, lumps, rash, wounds, others Allergic/Immunocompromised: denies: Difficulty Healing, Frequent Infections, Hives, Itching, others Hematologic/Lymphatic: denies: anemia, blood clots, easy bleeding, easy bruising, swollen glands, others Endocrine: denies: excessive hunger, excessive sweating, excessive thirst, excessive urination, flushing, intolerance to cold, intolerance to heat, unexplained weight gain, unexplained weight loss, others Psychiatric: denies: anxiety, bipolar disorder, depression, hopeless, panic disorder, schizophrenia, sleepless, suicidal, others All Other Systems: Reviewed and Negative Physical Exam General Appearance: No Apparent Distress, Normal HEENT: Normal ENT Inspection, Pharynx Normal, TMs Normal Neck: Full Range of Motion, Non-Tender, Normal, Normal Inspection Respiratory: Chest Non-Tender, Lungs Clear, No Accessory Muscle Use, No Respiratory Distress, Normal Breath Sounds Cardiovascular: No Edema, No JVD, No Murmur, No Gallop, Normal Peripheral Pulses, Regular Rate/Rhythm Breast Exam: Deferred Gastrointestinal: No Organomegaly, Non Tender, No Pulsatile Mass, Normal Bowel Sounds, Soft Genitalia: Deferred Pelvic: Deferred Rectal: Deferred Extremities: No calf tenderness, Normal capillary refill, Normal inspection, Normal range of motion, Non-tender, No pedal edema Musculoskeletal : Apperance: Normal Neurologic: Alert, restuarant crew worker II-XII nml as Tested, No Motor Deficits, Normal Affect, Normal Mood, No Sensory Deficits Cerebellar Function: NOT DONE Reflexes: NOT DONE Skin: Dry, Normal Color, Warm Lymphatic: No Adenopathy Was a procedure done? Was a procedure done?: No Differential Dx Considerations may include: acs, cva, electrolyte abnormality, infectious etiology X-Ray, Labs, Meds, VS Vital Signs Date Time Temp Pulse Resp B/P (MAP) Pulse Ox O2 Delivery O2 Flow Rate FiO2 07/01/24 15:10 68 07/01/24 14:07 98.7 100 16 120/80 (93) 96 12/29/24 13:38 68 Lab Test 07/01/24 14:21 Range/Units White Blood Count 8.2 4.4-10.8 10^3/uL Red Blood Count 4.28 4.0-5.20 10^6/uL Hemoglobin 13.8 12.2-16.2 g/dL Hematocrit 41.6 36.0-46.0 % Mean Corpuscular Volume 97.2 80.0-100.0 fL Mean Corpuscular Hemoglobin 32.1 H 28.0-32.0 pg Mean Corpuscular Hemoglobin Concent 33.1 32.0-36.0 g/dL Red Cell Distribution Width 14.6 H 11.8-14.3 % Platelet Count 176 140-450 10^3/uL Mean Platelet Volume 7.8 6.9-10.8 fL Neutrophils (%) (Auto) 67.3 37.0-80.0 % Lymphocytes (%) (Auto) 17.9 10.0-50.0 % Monocytes (%) (Auto) 9.8 0.0-12.0 % Eosinophils (%) (Auto) 4.1 0.0-7.0 % Basophils (%) (Auto) 0.9 0.0-2.0 % Neutrophils # (Auto) 5.6 1.6-8.6 10 ^3/uL Lymphocytes # (Auto) 1.5 0.4-5.4 10 ^3/uL Monocytes # (Auto) 0.8 0-1.3 10 ^3/uL Eosinophils # (Auto) 0.3 0-0.8 10 ^3/uL Basophils # (Auto) 0.1 0-0.2 10 ^3/uL Nucleated Red Blood Cells 0.1 % Sodium Level 141 136-145 mmol/L Potassium Level 4.5 3.5-5.1 mmol/L Chloride Level 107 98-107 mmol/L Carbon Dioxide Level 27 20-31 mmol/L Anion Gap 7 5-15 Blood Urea Nitrogen 15 9-23 mg/dL Creatinine 1.00 0.550-1.02 mg/dL Glomerular Filtration Rate Calc 56 >90 mL/min BUN/Creatinine Ratio 15.0 10.0-20.0 Serum Glucose 102 74-106 mg/dL Lactic Acid Level 1.2 0.4-2.0 mmol/L Calcium Level 9.6 8.7-10.4 mg/dL Troponin I High Sensitivity < 3 L </=34 ng/L [place] [id number] Ph: [phone] DIAGNOSTIC IMAGING Diagnostic Imaging Report : [id number] Signed PATIENT: HAROON ALBARADO ACCT: [id number] UNIT: [id number] : 1940 LOC: ER ROOM / BED: / AGE / SEX: 83 / F ADM STATUS: REG ER SERVICE 31 ORDERING PHYSICIAN: WESLY PAGAN MD PROCEDURE(s): CXRP - CHEST PORTABLE REASON: Syncope ORDER NUMBER(s): [id number], ACCESSION NUMBER(s): [id number] CHEST RADIOGRAPH Indication: Syncope Technique: Single frontal view of the chest was obtained Comparison: XY CHEST PORTABLE on DOS: 04/25/24, XY CHEST PORTABLE on DOS: 12/28/23, XY CHEST XRAY 1 VIEW on DOS: 10/27/23 FINDINGS: Lines and Tubes: None. Left-sided approach dual lead pacemaker terminating within right atrium and right ventricle. Lungs: No focal consolidation. Mild pulmonary vascular congestion. Pleura: No effusion. No pneumothorax. Cardiomediastinal contours: Mild cardiomegaly with minimal atherosclerotic calcification and uncoiling of the aorta. Bones: No acute osseous abnormality. IMPRESSION: Mild cardiomegaly with mild pulmonary vascular congestion. ATED BY: RONNA ROSADO DO DICTATED DATE/TIME: 07/01/24 150 SIGNED BY: RONNA ROSADO DO SIGNED DATE/TIME: 07/01/24 150 CC: [place] [id number] Ph: [phone] DIAGNOSTIC IMAGING Diagnostic Imaging Report : [id number] Signed PATIENT: HAROON ALBARADO ACCT: [id number] UNIT: [id number] : 1940 LOC: ER ROOM / BED: / AGE / SEX: 83 / F ADM STATUS: REG ER SERVICE 31 ORDERING PHYSICIAN: WESLY PAGAN MD PROCEDURE(s): HWOCT - HEAD WITHOUT CONTRAST REASON: Syncope ORDER NUMBER(s): [id number], ACCESSION NUMBER(s): [id number] EXAM: CT HEAD WITHOUT CONTRAST INDICATION: Syncope TECHNIQUE: CT of the head without intravenous contrast. Coronal and sagittal reformatted images are submitted. Radiation Dose : 1. Head: CT Dose: CTDI volume is 60.64 mGy. Dose-length product is 1194.81 mGy*cm The dose indicators for CT are the volume Computed Tomography (CT) Dose Index (CTDIvol) and the Dose Length Product (DLP), and are measured in units of mGy and mGy-cm, respectively. These indicators are not patient dose, but values generated from the CT scanner acquisition factors. The report includes radiation exposure data for exposures received during this examination. All CT scans at this medical facility are performed using dose modulation techniques as appropriate to a performed exam including the following: Automated exposure control was utilized; adjustment of the MA and/or KV according to patient size; and use of iterative reconstruction technique. COMPARISON: CT HEAD WITHOUT CONTRAST on DOS: 10/27/23 FINDINGS: There is no evidence of acute intracranial hemorrhage, extra-axial collection, mass effect, midline shift, herniation or hydrocephalus. There are periventricular and subcortical hypodensities, nonspecific, but likely reflecting sequelae of chronic microvascular ischemic changes. The ventricles, sulci and cisterns are age appropriate. The higgins-white differentiation is intact. Mastoid air cells. Opacification of the left maxillary sinus and left sphenoid sinus. The soft tissue density is slightly hyperattenuating. No depressed calvarial fracture. The surrounding soft tissues are unremarkable. IMPRESSION: 1. No acute intracranial abnormality. 2. Hyperdense opacification of the left maxillary sinus and left sphenoid sinus which may reflect inspissated secretions or fungal sinusitis. ATED BY: MONICA SHARMA MD DICTATED DATE/TIME: 07/01/241458 SIGNED BY: MONICA SHARMA MD SIGNED DATE/TIME: 07/01/241458 CC: Time of 1ST Reevaluation: 14:00 Reevaluation 1ST: Unchanged Patient Education/Counseling: Diagnosis, Treatment Family Education/Counseling: No Family Present Departure 1 Departure Time of Disposition: 17:00 (Patient presented with syncope today and should be admitted. Data: 1. I ordered and reviewed the result of at least 3 labs including a CBC, BMP, and troponin. 2. I independently interpreted the following tests: EKG which shows a sinus arrhythmia _ and a chest x-ray which shows benign chest and a CT head which shows sinusitis.Risk:This patient has a high risk of morbidity due to further diagnostic testing or treatment and may suffer from an acute cardiac, neurologic, or infectious disorder. Rationale: Patient should be admitted to the hospital for further management.) Impression: Primary Impression: Syncope Qualified Codes: R55 - Syncope and collapse Disposition: ADMITTED INPATIENT Admit to: Med Surg Condition: Serious Critical Care Note Critical Care Time?: No Stability Stability form required: No Heart Score Heart Score: Heart Score Response (Comments) Value History N/A 0 EKG N/A 0 Age >65 2 Risk Factors N/A 0 Troponin N/A 0 Total 2 I personally scribed for WESLY PAGAN MD ([facility]) on 07/01/24 at 14:19. El ectronically submitted by Cassandra Lopez ([facility]). I personally scribed for WESLY PAGAN MD ([email or web address]) on 07/01/24 at 16:37. Electronically submitted by Cassandra Lopez ([facility]). WESLY PAGAN MD Jul 01, 2024 14:19
[2024-07-01 14:44] LABS: Basophils # (auto) 0.1 10 ^3/uL (0-0.2); Basophils % (auto) 0.9 % (0.0-2.0); Eosinophils # (auto) 0.3 10 ^3/uL (0-0.8); Eosinophils % (auto) 4.1 % (0.0-7.0); Hematocrit 41.6 % (36.0-46.0); Hemoglobin 13.8 g/dL (12.2-16.2); Lymphocytes # (auto) 1.5 10 ^3/uL (0.4-5.4); Lymphocytes % (auto) 17.9 % (10.0-50.0); Mean Corpuscular Hemoglobin 32.1 pg (28.0-32.0); Mean Corpuscular Hgb Conc. 33.1 g/dL (32.0-36.0); Mean Corpuscular Volume 97.2 fL (80.0-100.0); Monocytes # (auto) 0.8 10 ^3/uL (0-1.3); Monocytes % (auto) 9.8 % (0.0-12.0); Neutrophils # (auto) 5.6 10 ^3/uL (1.6-8.6); Neutrophils % (auto) 67.3 % (37.0-80.0); Nucleated Red Blood Cells % 0.1 %; Platelet Count (auto) 176 10^3/uL (140-450); Red Blood Cells 4.28 10^6/uL (4.0-5.20); Red Cell Distribution Width 14.6 % (11.8-14.3); White Blood Cell 8.2 10^3/uL (4.4-10.8)
[2024-07-01 14:52] LABS: Potassium 4.5 mmol/L (3.5-5.1); Sodium 141 mmol/L (136-145)
[2024-07-01 14:54] LABS: Anion Gap 7 (5-15); Calcium 9.6 mg/dL (8.7-10.4); Carbon Dioxide 27 mmol/L (20-31); Chloride 107 mmol/L (98-107)
[2024-07-01 14:59] LABS: Blood Urea Nitrogen 15 mg/dL (9-23); Glucose 102 mg/dL (74-106)
--- NOTE | 2024-07-01 15:01 | DVH ---
EXAM: CT HEAD WITHOUT CONTRAST INDICATION: Syncope TECHNIQUE: CT of the head without intravenous contrast. Coronal and sagittal reformatted images are submitted. Radiation Dose : 1. Head: CT Dose: CTDI volume is 60.64 mGy. Dose-length product is 1194.81 mGy*cm The dose indicators for CT are the volume Computed Tomography (CT) Dose Index (CTDIvol) and the Dose Length Product (DLP), and are measured in units of mGy and mGy-cm, respectively. These indicators are not patient dose, but values generated from the CT scanner acquisition factors. The report includes radiation exposure data for exposures received during this examination. All CT scans at this medical facility are performed using dose modulation techniques as appropriate to a performed exam including the following: Automated exposure control was utilized; adjustment of the MA and/or KV according to patient size; and use of iterative reconstruction technique. COMPARISON: CT HEAD WITHOUT CONTRAST on DOS: 10/27/23 FINDINGS: There is no evidence of acute intracranial hemorrhage, extra-axial collection, mass effect, midline s hift, herniation or hydrocephalus. There are periventricular and subcortical hypodensities, nonspecific, but likely reflecting sequelae of chronic microvascular ischemic changes. The ventricles, sulci and cisterns are age appropriate. The higgins-white differentiation is intact. Mastoid air cells. Opacification of the left maxillary sinus and left sphenoid sinus. The soft tissue density is slightly hyperattenuating. No depressed calvarial fracture. The surrounding soft tissues are unremarkable. IMPRESSION: 1. No acute intracranial abnormality. 2. Hyperdense opacification of the left maxillary sinus and left sphenoid sinus which may reflect ins pissated secretions or fungal sinusitis.
--- NOTE | 2024-07-01 15:05 | DVH ---
CHEST RADIOGRAPH Indication: Syncope Technique: Single frontal view of the chest was obtained Comparison: XY CHEST PORTABLE on DOS: 04/25/24, XY CHEST PORTABLE on DOS: 12/28/23, XY CHEST XRAY 1 EW on DOS: 10/27/23 FINDINGS: Lines and Tubes: None. Left-sided approach dual lead pacemaker terminating within right atrium and r ight ventricle. Lungs: No focal consolidation. Mild pulmonary vascular congestion. Pleura: No effusion. No pneumothorax. Cardiomediastinal contours: Mild cardiomegaly with minimal atherosclerotic calcification and uncoilin g of the aorta. Bones: No acute osseous abnormality. IMPRESSION: Mild cardiomegaly with mild pulmonary vascular congestion.
--- NOTE | 2024-07-02 00:24 | DVHHPRES ---
History of Present Illness Resident Creating Document: AMERICA JONES RESIDENT History of Present Illness This is an 83-year-old female with past medical history of hypertension, hyperlipidemia, AFib, CHF, dementia, status post pacemaker presented to the ED for an evaluation of syncopal episodes earlier today prior to this admission. Patient states that she walked into the kitchen when she suddenly became weak, pale and seeing flashing lights all around and, feeling dizzy and about to collapse, but she did not fell she was hold by the family. She had Previous history of frequent syncopal episode in the past. Patient denies chest pain, shortness of breath, abdominal pain, nausea, vomiting, diaphoresis, any weakness, headache, blurring of vision or any change in bowel and bladder habit . Past Medical History Hypertension, hyperlipidemia, prediabetic, CHF, atrial fibrillation Past Surgical History None Family History None Smoke: No ALCOHOL: none Drugs: None Lives: with Family Review of Systems Constitutional: No: Fever, Chills, Sweats, Weakness, Malaise, Other Eyes: No: Pain, Vision change, Conjunctivae inflammation, Eyelid inflammation, Other, Redness ENT: No: Ear pain, Ear discharge, Nose pain, Nose discharge, Nose congestion, Mouth pain, Mouth swelling, Throat pain, Throat swelling, Other Respiratory: No: Cough, Dry, Shortness of breath, SOB with excertion, Wheezing, Hemoptysis, Pleuritic Pain, Sputum, Wheezing, Other Cardiovascular: Lt Headedness; No: Chest Pain, Palpitations, Orthopnea, Paroxysmal Noc. Dyspnea, Edema, Other Gastrointestinal: No: Nausea, Vomiting, Abdominal Pain, Diarrhea, Constipation, Melena, Hematochezia, Other Genitourinary: No Dysuria, No Frequency, No Incontinence, No Hematuria, No Retention, No Other Musculoskeletal: No: other, neck pain, shoulder pain, arm pain, back pain, hand pain, leg pain, foot pain Skin: No: Rash, Lesions, Jaundice, Bruising, Other Neurological: No: Weakness, Numbness, Incoordination, Change in speech, Confus ion, Seizures, Other Allergies: Coded Allergies: Morphine (Verified Allergy, Unknown, 12/28/22) Exam Vital Signs Vital Signs Date Time Temp Pulse Resp B/P (MAP) Pulse Ox O2 Delivery O2 Flow Rate FiO2 07/01/24 22:50 98.7 67 18 143/84 (103) 96 98.7 Exam Physical examination: General Appearance: Alert, Oriented X3, Cooperative, No acute distress HEENT: Atraumatic, PERRLA, EOMI, Mucous membrane moist/pink Respiratory: Clear to auscultation, Normal air movement Cardiovascular: Regular rate, Normal S1, Normal S2, No murmurs, no chest wall tenderness Abdominal: Normal bowel sounds, Soft, No tenderness, No hepatospenomegaly, No masses Extremities: No clubbing, No cyanosis, No edema, Normal pulses, No tenderness/swelling Skin: No rashes, No breakdown, No significant lesion Neuro: Normal gait, Normal speech, Strength at 5/5 X4 ext, Normal tone, Sensation intact, grossly intact cranial nerves. Psych/Mental Status: Mental status NL, Mood NL Labs/Xrays Labs Test 07/01/24 16:56 07/01/24 14:21 Range/Units Troponin I High Sensitivity < 3 L </=34 ng/L White Blood Count 8.2 4.4-10.8 10^3/uL Red Blood Count 4.28 4.0-5.20 10^6/uL Hemoglobin 13.8 12.2-16.2 g/dL Hematocrit 41.6 36.0-46.0 % Mean Corpuscular Volume 97.2 80.0-100.0 fL Mean Corpuscular Hemoglobin 32.1 H 28.0-32.0 pg Mean Corpuscular Hemoglobin Concent 33.1 32.0-36.0 g/dL Red Cell Distribution Width 14.6 H 11.8-14.3 % Platelet Count 176 140-450 10^3/uL Mean Platelet Volume 7.8 6.9-10.8 fL Neutrophils (%) (Auto) 67.3 37.0-80.0 % Lymphocytes (%) (Auto) 17.9 10.0-50.0 % Monocytes (%) (Auto) 9.8 0.0-12.0 % Eosinophils (%) (Auto) 4.1 0.0-7.0 % Basophils (%) (Auto) 0.9 0.0-2.0 % Neutrophils # (Auto) 5.6 1.6-8.6 10 ^3/uL Lymphocytes # (Auto) 1.5 0.4-5.4 10 ^3/uL Monocytes # (Auto) 0.8 0-1.3 10 ^3/uL Eosinophils # (Auto) 0.3 0-0.8 10 ^3/uL Basophils # (Auto) 0.1 0-0.2 10 ^3/uL Nucleated Red Blood Cells 0.1 % Sodium Level 141 136-145 mmol/L Potassium Level 4.5 3.5-5.1 mmol/L Chloride Level 107 98-107 mmol/L Carbon Dioxide Level 27 20-31 mmol/L Anion Gap 7 5-15 Blood Urea Nitrogen 15 9-23 mg/dL Creatinine 1.00 0.550-1.02 mg/dL Glomerular Filtration Rate Calc 56 >90 mL/min BUN/Creatinine Ratio 15.0 10.0-20.0 Serum Glucose 102 74-106 mg/dL Lactic Acid Level 1.2 0.4-2.0 mmol/L Calcium Level 9.6 8.7-10.4 mg/dL Assessment/Plan Assessment/Plan Assessment and Plan: # Presyncopal episode likely due to dehydration - On admission patient was hypotensive - Ekg and troponin are unremarkable - Ordered orthostatic vitals - IV normal saline at 60 mL/hour - Carotid doppler on 04/26 revealed no evidence of hemodynamically significant CCA or ICA stenosis -Echo on 04/26 ejection fraction 55% with grade 1 diastolic dysfunction and RVSP 57 mm Hg - Consult cardiology - Monitor vitals closely # Chronic atrial fibrillation with secondary hypercoagulable state - Continue Xarelto 15 mg p.o. daily # Prediabetic, hemoglobin A1c 6.1 - Counseled patient regarding low carb diet, lifestyle modification and physical exercise # PUD prophylaxis - Pepcid 20 mg p.o. daily # DVT prophylaxis - Patient is on Xarelto Goal of care discussed with the patient for more than 23 minutes full code Plan discussed with Dr. Huber Plan discussed with: Patient, Other My Orders Orders - AMERICA JONES RESIDENT Procedure Category Date Status Time Admit ADMIT 07/02/24 Transmitted 00:12 Feed Miller For ABE 07/02/24 In Process 24 Hours 00:12 Orthostatic Vital ORDERS 07/02/24 Transmitted Signs 00:20 Carotid Duplx W Color US 07/02/24 Logged DOP 00:20 Date of Service: Jul 02, 2024 Billing Provider: MILLA HUBER MD Common Visit Codes: [id number] INP/OBS CARE (HIGH) Secondary Visit Codes: 31019-[id number] CARE PLAN 30 MINUTES AMERICA JONES RESIDENT Jul 02, 2024 00:24 MILLA HUBER MD Jul 03, 2024 10:45
[2024-07-02] MEDS ORDERED: RIVAROXABAN 20 MG TAB PO SCH ×2 (04:30→18:00)
[2024-07-02] MEDS: SODIUM CHLORIDE 0.9% 1,000 ML IV SCH (04:30)
[2024-07-02 07:39] VITALS: RESP 18
[2024-07-02] MEDS: FAMOTIDINE 20 MG TAB PO SCH (08:03)
[2024-07-02 08:18] LABS: Urine Bacteria FEW /hpf (None Seen); Urine Blood Negative /uL (Negative); Urine Budding Yeast OCCASIONAL /hpf (None Seen); Urine Clarity Turbid (Clear); Urine Color Yellow (Yellow); Urine Mucus FEW (None Seen); Urine Protein, UAD TRACE (Negative); Urine Specific Gravity 1.021 (1.001-1.035); Urine Squamous Epithelial Cell FEW /hpf (<5); Urine Urobilinogen Normal (Negative); Urine WBC 98 /hpf (0 - 5); Urine pH 5.5 (5.0-9.0)
[2024-07-02 08:34] LABS: Amphetamine Screen, Urine Neg (NEGATIVE); Barbiturate Scree,Urine Neg (NEGATIVE); Benzodiazephine Screen, Urine Neg (NEGATIVE); Cannabinoid Screen, Urine Neg (NEGATIVE); Cocaine Screen, Urine Neg (NEGATIVE); Opiate Scree,Urine Neg (NEGATIVE); Phencyclidine Screen, Urine Neg (NEGATIVE)
[2024-07-02 09:57] VITALS: BP 166/86; PULSE 66; RESP 18; TEMP 97.5; O2SAT 97
--- NOTE | 2024-07-02 10:38 | DVHPNRES ---
Progress Note Date Seen: Jul 02, 2024 Resident Creating Document: ANUJ CERNA RESIDENT Medical Necessity Reason Pt with a Central, PICC or Fol: No Subjective Review of Systems Patient is a 83-year-old female with past medical history of aortic stenosis, atrial fibrillation, HFpEF EF 60%, hypertension, dyslipidemia, dementia, sick sinus syndrome s/p pacemaker, nonobstructive coronary artery disease came in due to syncope. According to the patient, yesterday on 07/01/2024 she was in the kitchen washing dishes, when she suddenly started feeling nauseous which was followed by dizziness, seeing white lines in her visual field and then lost consciousness. Patient states that her family noticed and eventually sat her down. She reports feeling similar symptoms before, symptoms also occur sometimes when she is sitting. Patient notes that a couple of months ago she had a valve replacement procedure at [facility], after which the symptoms of dizziness improved, however, she notes symptoms have returned recently. Patient is on home oxygen 2 L. [address]'s certified court/medical interpreter: Dr. Michele Patient's PCP: Dr. Odilon Bautista Past surgical history: Denies Home medications: Carvedilol, donepezil, gabapentin, magnesium oxide, nifedipine, oxybutynin, Protonix, Xarelto Past Hospitalization: In April 2024 for hypertensive crisis Social & Personal history: Patient lives with her daughter. Denies using tobacco, alcohol, drugs. Allergies: Morphine Patient seen and examined at bedside. Patient is alert and oriented to time, place person and responding to all questions. General: Fatigue Eyes: No Pain, No Vision change, No Conjunctivae inflammation, No Eyelid inflammation, No Other, No Redness ENT: No Ear pain, No Ear discharge, No Nose pain, No Nose discharge, No Nose congestion, No Mouth pain, No Mouth swelling, No Throat pain, No Throat swelling, No Other Cardiovascular: No Chest Pain, Palpitations, No Orthopnea, No Paroxysmal No Dyspnea, No Edema, No Lt Headedness, No Other Respiratory: No Cough, No Dry, Shortness of breath, No SOB with exertion, No Wheezing, No Hemoptysis, No Pleuritic Pain, No Sputum, No Other Gastrointestinal: Nausea, No Vomiting, No Abdominal Pain, No Diarrhea, No Constipation, No Melena, No Hematochezia, No Other Genitourinary: Dysuria, No Frequency, No Incontinence, No Hematuria, No Retention, No Other Musculoskeletal: No other, No neck pain, No shoulder pain, No arm pain, No back pain, No hand pain, No leg pain, No foot pain Skin: No Rash, No Lesions, No Jaundice, No Bruising, No Other Objective vital signs Vital Sign Date Time Temp Pulse Resp B/P (MAP) Pulse Ox O2 Delivery O2 Flow Rate FiO2 07/02/24 09:57 97.5 66 18 166/86 (112) 97 97.5 07/02/24 07:39 Room Air* 0 21 medications Current Medications Medications Dose Ordered Sig/Clay Route Start Time Stop Time Status Last Admin Dose Admin Rivaroxaban 15 mg QPM PO 07/02/24 18:00 Famotidine 20 mg DAILY PO 07/02/24 10:00 07/02/24 08:03 20 MG Examination General Appearance: Cooperative. Well developed. Well nourished. NAD Head Exam: Normal inspection Neck Exam: Normal inspection. Non-tender. Normal alignment Pulmonary/Respiratory: Chest non-tender. Clear bilateral breath sounds, no crackles, no wheezing. Cardiovascular/Chest: Regular rate and rhythm. No murmurs. No JVD. Peripheral Pulses: 2+ Radial (R). 2+ Radial (L). 2+ Pedal (R). 2+ Pedal (L) Abdominal Exam: Normal bowel sounds. Soft. normal abdomen, no visible veins, Nontender. No hepatospenomegaly. No masses Ankle Exam: Negative ankle edema Lower extremities: Negative lower extremity edema Neuro/Mental Status: A&O x4. Coherent. Thoughts/Psych: Normal thought pattern. Appropriate mood and affect. Good judgement and insight Skin Exam: Normal inspection. Normal color. Warm. Dry laboratory and microbiology Laboratory Tests 07/01/24 14:21 Test 07/01/24 14:21 Range/Units Serum Glucose 102 74-106 mg/dL Labs and/or images reviewed: Labs reviewed by me, Image(s) reviewed by me Problem List/Assessment/Plan Problem List/Assessment/Plan Syncope likely due to autonomic dysfunction versus aortic stenosis? - head CT: No acute intracranial abnormality. Hyperdense opacification of the left maxillary sinus and left sphenoid sinus which may reflect in inspissated secretions or fungal sinusitis - ordered vitamin B12, folic acid, TSH, orthostatic vital signs - carotid Doppler ultrasound Acute on chronic heart failure with preserved ejection fraction, EF 55% Elevated RVSP of 57 - CXR: Mild cardiomegaly with mild pulmonary vascular congestion Acute complicated UTI - IV ceftriaxone daily Nonobstructive coronary artery disease Hypertensive heart disease Dyslipidemia - nifedipine 30 mg p.o. daily Hypercoagulable state secondary to chronic atrial fibrillation - Xarelto 15 mg p.o. q.p.m. History of sick sinus syndrome, s/p pacemaker 12 years ago - monitor PUD prophylaxis: Pepcid 20 mg Goals of care: Full code, discussed for >16 minutes on 07/02/24 Plan discussed with patient Plan discussed with Dr. Huber Plan discussed with: Patient, Daughter, Other (RN) My Orders My Orders Orders - ANUJ CERNA RESIDENT Procedure Category Date Status Time Urine Bacterial ELSI 07/02/24 Verified Culture 10:35 Prothrombin Time W/ LAB 07/02/24 Verified INR 10:35 Vitamin B12 LAB 07/02/24 Verified 10:35 Folate (Folic Acid) LAB 07/02/24 Verified 10:35 Thyroid Stimulating LAB 07/02/24 Verified Hormone 10:35 Orthostatic Vital ED NURSING 07/02/24 Verified Signs Rapid Influenza A&B LAB 07/02/24 Verified 10:35 Covid19 Antigen [facility] LAB 07/02/24 Verified Date of Service: Jul 02, 2024 Billing Provider: MILLA HUBER MD Common Visit Codes: [id number] INP/OBS CARE(HIGH) ANUJ CERNA RESIDENT Jul 02, 2024 10:38 MILLA HUBER MD Jul 03, 2024 11:02
[2024-07-02 11:08] LABS: Folate (Folic Acid) 16.13 ng/mL (>5.38)
[2024-07-02 12:00] LABS: INR 1.3 (0.9-1.15); Prothrombin Time 13.5 sec (9.3-11.8)
[2024-07-02] MEDS: NIFEdipine ER 30 MG TAB PO ONE (12:04)
[2024-07-02 16:08] VITALS: BP 159/93; PULSE 70; RESP 20; TEMP 97.9; O2SAT 96
--- NOTE | 2024-07-02 16:18 | DVH ---
Carotid Duplex Clinical History: presyncope Comparison: US CAROTID DUPLX W COLOR DOP on DOS: 12/27/22, CAROTID DUPLX W COLOR DOP on DOS: 05/29/22 Technique: Duplex doppler evaluation of the extracranial carotid and vertebral arteries including color doppler and spectral/pulsed waveform analysis was performed. Findings: No elevated peak flow velocities. Antegrade flow in the vertebral arteries. No significant stenosis. No significant plaque identified. IMPRESSION: 1. No hemodynamically significant stenosis noted in the right carotid system. 2. No hemodynamically significant stenosis noted in the left carotid system. Reference: Radiology 2003; 229:[id number] Normal ICA PSV is <125 cm/sec and no plaque or intimal thickening is visible sonographically Additional criteria include ICA/CCA PSV ratio <2.0 and ICA EDV <40 cm/sec <50% ICA stenosis ICA PSV is <125 cm/sec and plaque or intimal thickening is visible sonographically Additional criteria include ICA/CCA PSV ratio <2.0 and ICA EDV <40 cm/sec 50-69% ICA stenosis ICA PSV is 125-230 cm/sec and plaque is visible sonographically Additional criteria include ICA/CCA PSV ratio of 2.0-4.0 and ICA EDV of 40-100 cm/sec 70% ICA stenosis but less than near occlusion ICA PSV is >230 cm/sec and visible plaque and luminal narrowing are seen at higgins-scale and color dopp ler ultrasound (the higher the doppler parameters lie above the threshold of 230 cm/sec, the greater the likelihood of severe disease) Additional criteria include ICA/CCA PSV ratio >4 and ICA EDV >100 cm/sec
[2024-07-02] MEDS ORDERED: hydrALAZINE HCL 20 MG/ML VL IV PRN (17:00)
[2024-07-02] MEDS: RIVAROXABAN 15 MG TAB PO SCH (17:02)
--- NOTE | 2024-07-02 17:47 | DVHINCON2 ---
Date of service: Jul 02, 2024 History of Present Illness HPI Patient is a 83-year-old female who presented to hospital with syncopal episode. Reportedly, the patient walked into the kitchen being pale. Later while going to living room, she lost consciousness. Reportedly, EMS found her with blood pressure of 83 at systolic. After some fluid therapy, the blood pressure increased to 120/80. Cardiology is called for cardiac aspects of care. Patient is known to our practice from outside and before. Patient does have a Medtronic pacemaker. She has a history of valvular heart disease and has had TAVR in October 2023 for severe aortic stenosis. She also follows with [place] cardiology. Reportedly, the patient is found to have other valvular heart disease? Home Meds Active Scripts Nifedipine (Nifedipine Er) 30 Mg Tab, 60 MG PO BID for 30 Days, #120 TAB 3 Refills Prov:DMITRI HOPPER ASSOCIATE PROFESSOR OF GEOGRAPHY 04/27/24 Ondansetron Odt 4MG Tab (ZOFRAN PO) 4 Mg Tb, 1 TAB PO Q8HPRN PRN, #10 TAB as needed for painODT TAB-DISSOLVE IN MOUTH, THEN SWALLOW Prov:ROLF YUAN ASSOCIATE PROFESSOR OF GEOGRAPHY 09/09/23 Hydrocodone-Acetaminophen (Hydrocodone Bitartrate/AC 5-325 mg) 1 Tab Tab, 1 TAB PO QID PRN, #20 TAB Prov:DAVI SAGASTUME MD 06/08/23 Reported Medications Bisacodyl (Dulcolax) 10 Mg Sup, 10 MG RE DAILY PRN for FOR CONSTIPATION, SUPP 04/26/24 Magnesium Hydroxide (Milk Of Magnesia) 400 Mg/5 Ml Bernie, 30 ML PO DAILY PRN for FOR CONSTIPATION, ML 04/26/24 Acetaminophen (Apap) 325 Mg Tab, 2 TAB PO Q4HPRN PRN for mild pain 1-3, TAB 04/26/24 Pantoprazole Sodium Sesquihydr (Pantoprazole Sodium) 40 Mg Tab, 1 TAB PO BID 04/26/24 Oxybutynin Chloride (Oxybutynin Chloride) 5 Mg Tab, 10 MG PO DAILY 04/26/24 Rivaroxaban (Xarelto Tablet) 15 Mg Tb, 1 TAB PO DAILY 04/26/24 Docusate Sodium (Colace) 100 Mg Cap, 1 CAP PO BID PRN for FOR CONSTIPATION, #30 CAP 06/22/21 Gabapentin (Gabapentin) 300 Mg Cap, 300 MG PO DAILY for 30 Days, MG 06/22/21 Donepezil Hydrochloride (DONEPEZIL HCL) 10 Mg Tab, 10 MG PO DAILY for 30 Days, MG 06/22/21 Carvedilol (Carvedilol) 25 Mg Tab, 25 MG PO Q12HR for 30 Days, MG 06/22/21 Past Medical History Others Past medical history includes hypertension, hyperlipidemia, atrial fibrillation, diastolic heart failure, pulmonary hypertension, dementia, status post pacemaker (Medtronic) implantation secondary to sick sinus syndrome, GERD, DJD, goals history of syncope, prediabetes, nonobstructive coronary artery disease, valvular heart disease and status post TAVR (October 2023 in [place]), status post cholecystectomy and left hip replacement. Patient Family History: Patient reports no known family medical history. Smoker: No Hx (Negative) Drugs: None Lives with: With family Review of Systems Constitutional: Weakness Ears, Nose, & Throat: No symptom reported Eyes: Vision change Pulmonary/Respiratory: No symptom reported Cardiovascular: Lt Headedness All Other Systems Fourteen point review of system was performed. Relevant findings as per above and as per HPI. Otherwise negative. H&P Exam Vital Signs Vital Signs Date Time Temp Pulse Resp B/P (MAP) Pulse Ox O2 Delivery O2 Flow Rate FiO2 07/02/24 16:08 97.9 70 20 159/93 (115) 96 97.9 07/02/24 07:39 Room Air* 0 21 General Appeara: Well developed Head Exam: Normal inspection Eye Exam: bilateral eye PERRL Nasal Exam: Normal inspection Mouth: Normal Inspection Pulmonary/Respiratory: Normal inspection, Normal breath sounds, Lungs clear Cardiovascular/Chest: Normal inspection, Regular rate, Systolic murmur Peripheral Pulses: 2+ carotid (R), 2+ carotid (L), 2+ femoral (R), 2+ femoral (L), 2+ dorsalis pedis (R), 2+ dorsalis pedis (L), 2+ Radial (R), 2+ Radial (L) Abdominal Exam: Normal bowel sounds, Soft, No hepatospenomegaly Neuro/Mental St: Alert, Oriented Appearance: Appropriate appearance Eye contact/ Speech: Cooperative Labs/Xrays Labs Test 07/02/24 17:24 07/02/24 10:52 07/02/24 06:30 07/02/24 00:36 Range/Units Prothrombin Time 13.5 H 9.3-11.8 sec Prothrombin Time INR 1.30 H 0.9-1.15 Urine Color Yellow Yellow Urine Clarity Turbid H Clear Urine pH 5.5 5.0-9.0 Urine Specific [place] 1.021 1.001-1.035 Urine Protein Trace H Negative Urine Ketones Negative Negative Urine Blood Negative Negative /uL Urine Nitrite 2+ H Negative Urine Bilirubin Negative Negative Urine Urobilinogen Normal Negative mg/dL Urine Leukocyte Esterase 3+ Negative /uL Urine RBC 2 0 - 4 /hpf Urine WBC 98 0 - 5 /hpf Urine Squamous Epithelial Cells Few <5 /hpf Urine Bacteria Few H None Seen /hpf Urine Mucus Few None Seen Urine Yeast (Budding) Occasional None Seen /hpf Urine Glucose Normal Normal mg/dL Urine Opiates Screen Neg NEGATIVE Urine Fentanyl Screen Neg NEGATIVE Urine Barbiturates Screen Neg NEGATIVE Urine Phencyclidine Screen Neg NEGATIVE Urine Amphetamines Screen Neg NEGATIVE Urine Benzodiazepines Screen Neg NEGATIVE Urine Cocaine Screen Neg NEGATIVE Urine Cannabinoids Screen Neg NEGATIVE Hemoglobin A1c 6.1 H <5.7 % A1C B-Type Natriuretic Peptide 106.13 0-100 pg/mL Vitamin B12 Level 386 211-911 pg/mL Folic Acid 16.13 >5.38 ng/mL Thyroid Stimulating Hormone (TSH) 1.11 0.55-4.78 uIU/mL Test 07/01/24 16:56 07/01/24 14:21 Range/Units Troponin I High Sensitivity < 3 L </=34 ng/L White Blood Count 8.2 4.4-10.8 10^3/uL Red Blood Count 4.28 4.0-5.20 10^6/uL Hemoglobin 13.8 12.2-16.2 g/dL Hematocrit 41.6 36.0-46.0 % Mean Corpuscular Volume 97.2 80.0-100.0 fL Mean Corpuscular Hemoglobin 32.1 H 28.0-32.0 pg Mean Corpuscular Hemoglobin Concent 33.1 32.0-36.0 g/dL Red Cell Distribution Width 14.6 H 11.8-14.3 % Platelet Count 176 140-450 10^3/uL Mean Platelet Volume 7.8 6.9-10.8 fL Neutrophils (%) (Auto) 67.3 37.0-80.0 % Lymphocytes (%) (Auto) 17.9 10.0-50.0 % Monocytes (%) (Auto) 9.8 0.0-12.0 % Eosinophils (%) (Auto) 4.1 0.0-7.0 % Basophils (%) (Auto) 0.9 0.0-2.0 % Neutrophils # (Auto) 5.6 1.6-8.6 10 ^3/uL Lymphocytes # (Auto) 1.5 0.4-5.4 10 ^3/uL Monocytes # (Auto) 0.8 0-1.3 10 ^3/uL Eosinophils # (Auto) 0.3 0-0.8 10 ^3/uL Basophils # (Auto) 0.1 0-0.2 10 ^3/uL Nucleated Red Blood Cells 0.1 % Sodium Level 141 136-145 mmol/L Potassium Level 4.5 3.5-5.1 mmol/L Chloride Level 107 98-107 mmol/L Carbon Dioxide Level 27 20-31 mmol/L Anion Gap 7 5-15 Blood Urea Nitrogen 15 9-23 mg/dL Creatinine 1.00 0.550-1.02 mg/dL Glomerular Filtration Rate Calc 56 >90 mL/min BUN/Creatinine Ratio 15.0 10.0-20.0 Serum Glucose 102 74-106 mg/dL Lactic Acid Level 1.2 0.4-2.0 mmol/L Calcium Level 9.6 8.7-10.4 mg/dL Assessment/Plan Plan Patient is a 83-year-old female who presented to hospital with syncopal episode. Reportedly, the patient walked into the kitchen being pale. Later while going to living room, she lost consciousness. Reportedly, EMS found her with blood pressure of 83 at systolic. After some fluid therapy, the blood pressure increased to 120/80. Cardiology is called for cardiac aspects of care. Patient is known to our practice from outside and before. Patient does have a Medtronic pacemaker. She has a history of valvular heart disease and has had TAVR in October 2023 for severe aortic stenosis. She also follows with [place] [facility]ology. Reportedly, the patient is found to have other valvular heart disease? Not in acute distress. Lao-speaking. Sitting in chair comfortably. No JVD. Mucous has been came with. No goiter. No carotid bruit. Not using accessory muscles of breathing. Lungs are clear to auscultation. Cardiac: Regular, no thrills/gallop. Systolic murmur 2/6 in apex is heard. Abdomen is soft. Bowel sounds positive. There is no gross mass/hepatomegaly. Extremities reveal 1+ edema. Dorsalis pedis is 2+ bilateral Past medical history includes hypertension, hyperlipidemia, atrial fibrillation, diastolic heart failure, pulmonary hypertension, dementia, status post pacemaker (Medtronic) implantation secondary to sick sinus syndrome, GERD, DJD, goals history of syncope, prediabetes, nonobstructive coronary artery disease, valvular heart disease and status post TAVR (October 2023 in [place]), status post cholecystectomy and left hip replacement. Echocardiogram of April 08, 2024 had reported ejection fraction of 55%, moderate biatrial enlargement, bioprosthetic valve in aortic position and right ventricular systolic pressure of 57 mm Hg. Right and left heart catheterization of June 2023 at reported nonobstructive coronary artery disease, Ectatic LAD/LCX/RCA, ejection fraction of 60% and severe aortic stenosis Creatinine: 1.0 Potassium: 4.5 TSH: 1.11 BNP: 106.13 Troponin (high sensitive): <3 to <3 Chest x-ray reported: IMPRESSION: Mild cardiomegaly with mild pulmonary vascular congestion. CT of the head reported: IMPRESSION: 1. No acute intracranial abnormality. 2. Hyperdense opacification of the left maxillary sinus and left sphenoid sinus which may reflect inspissated secretions or fungal sinusitis. Carotid ultrasound revealed: IMPRESSION: 1. No hemodynamically significant stenosis noted in the right carotid system. 2. No hemodynamically significant stenosis noted in the left carotid system. EKG revealed a sense V paced rhythm Tele reveals ACS B paced rhythm Patient is a 83-year-old female who presented with episode of syncope. Patient did have hypotension on arrival of the EMS which improved after fluid therapy. Dehydration could have contributed to clinical picture. Patient has a baseline history of valvular heart disease and is status post TAVR. There is questionable information of possible new valvular heart disease. Patient does have history of sick sinus syndrome and does have Medtronic pacemaker. Syncope Hypotension Questionable dehydration Sick sinus syndrome, status post pacemaker (Medtronic implantation) Valvular heart disease Status post TAVR Diastolic heart failure Pulmonary hypertension Atrial fibrillation Cardiac suggestion for management: Manage on telemetry Follow up electrolytes and kidney function tests and correct abnormalities Fluid resuscitation is advised Keep potassium above 4 and magnesium above 2 Request echocardiogram Request for interrogation of pacemaker (Medtronic) Long-term continuation of anticoagulation is advised (on Xarelto) Further evaluation and management depends on the above and clinical course Thank you for consultation A total of 75 minutes was spent reviewing the patient record, examining the crystal ent, making a diagnostic and therapeutic plan, discussing this plan with medical personnel, following up on diagnostic studies and following the patient for clinical stability excluding any and all procedures. At least 50% of this time was spent in direct, [id number] contact. Thank you for allowing me to participate in this patient's care. Further recommendations will depend on patient's clinical course. Please do not hesitate to contact me if you have any questions or concerns. This medical document was created using electronic medical record system with [employer] computerized dictation system. Although this document has been carefully reviewed, there may still be some phonetic and typographical errors. These areas are purely typographical due to the imperfection of the software programs, and do not reflect any compromise in the patient's medical care. Plan discussed with: Patient, Other (nurse) MELY LEAL MD Jul 02, 2024 17:47
[2024-07-02 18:34] LABS: COVID19 ANTIGEN SOFIA FIA NEGATIVE (NEGATIVE)
[2024-07-02 18:34] LABS: Rapid Influenza A Negative (Negative); Rapid Influenza B Negative (Negative)
[2024-07-02 22:15] VITALS: BP 122/71; PULSE 80; RESP 19; TEMP 98.6; O2SAT 97
[2024-07-02 22:20] VITALS: BP_SYST 125; BP_SYST 140; BP_DIAS 72; BP_DIAS 96; PULSE 85; PULSE 92
[2024-07-02 23:00] VITALS: PULSE 67; RESP 18; O2SAT 95
[2024-07-03] VITALS (8 sets, daily range): BP systolic 129–145; BP diastolic 84–95; PULSE 71–88; RESP 16–18; TEMP 98–98.2; O2SAT 95–99
--- NOTE | 2024-07-03 07:43 | DVHPN2 ---
Progress Note - Dictate Date Seen: Jul 03, 2024 Medical Necessity Reason Pt with a Central, PICC or Fol: No vital signs Vital Sign Date Time Temp Pulse Resp B/P (MAP) Pulse Ox O2 Delivery O2 Flow Rate FiO2 07/03/24 05:00 98.1 76 16 139/92 (108) 95 98.1 07/02/24 07:39 Room Air* 0 21 Total Intake and Output 07/02/24 07/02/24 07/03/24 15:00 23:00 07:00 Intake Total 180 ml Balance 180 ml medications Current Medications Medications Dose Ordered Sig/Clay Route Start Time Stop Time Status Last Admin Dose Admin Rivaroxaban 15 mg QPM PO 07/02/24 18:00 07/02/24 17:02 15 MG Famotidine 20 mg DAILY PO 07/02/24 10:00 07/02/24 08:03 20 MG Nifedipine 30 mg DAILY PO 07/03/24 10:00 Ceftriaxone Sodium 50 ml @ 100 mls/hr DAILY@09 IV 07/03/24 09:00 Hydralazine HCl 10 mg Q6HP PRN IV 07/02/24 17:00 laboratory and microbiology Laboratory Tests 07/01/24 14:21 Test 07/01/24 14:21 Range/Units Serum Glucose 102 74-106 mg/dL Assessment/Plan Patient is a 83-year-old female who presented to hospital with syncopal episode. Reportedly, the patient walked into the kitchen being pale. Later while going to living room, she lost consciousness. Reportedly, EMS found her with blood pressure of 83 at systolic. After some fluid therapy, the blood pressure increased to 120/80. Cardiology is called for cardiac aspects of care. Patient is known to our practice from outside and before. Patient does have a Medtronic pacemaker. She has a history of valvular heart disease and has had TAVR in October 2023 for severe aortic stenosis. She also follows with [place] [facility]. Reportedly, the patient is found to have other valvular heart disease? Not in acute distress. Malay-speaking. Sitting in chair comfortably. No JVD. Mucous has been came with. No goiter. No carotid bruit. Not using accessory muscles of breathing. Lungs are clear to auscultation. Cardiac: Regular, no thrills/gallop. Systolic murmur 2/6 in apex is heard. Abdomen is soft. Bowel sounds positive. There is no gross mass/hepatomegaly. Extremities reveal 1+ edema. Dorsalis pedis is 2+ bilateral Past medical history includes hypertension, hyperlipidemia, atrial fibrillation, diastolic heart failure, pulmonary hypertension, dementia, status post pacemaker (Medtronic) implantation secondary to sick sinus syndrome, GERD, DJD, goals history of syncope, prediabetes, nonobstructive coronary artery disease, valvular heart disease and status post TAVR (October 2023 in [place]), status post cholecystectomy and left hip replacement. Echocardiogram of April 08, 2024 had reported ejection fraction of 55%, moderate biatrial enlargement, bioprosthetic valve in aortic position and right ventricular systolic pressure of 57 mm Hg. Right and left heart catheterization of June 2023 at reported nonobstructive coronary artery disease, Ectatic LAD/LCX/RCA, ejection fraction of 60% and severe aortic stenosis Creatinine: 1.0 Potassium: 4.5 TSH: 1.11 BNP: 106.13 Troponin (high sensitive): <3 to <3 Chest x-ray reported: IMPRESSION: Mild cardiomegaly with mild pulmonary vascular congestion. CT of the head reported: IMPRESSION: 1. No acute intracranial abnormality. 2. Hyperdense opacification of the left maxillary sinus and left sphenoid sinus which may reflect inspissated secretions or fungal sinusitis. Carotid ultrasound revealed: IMPRESSION: 1. No hemodynamically significant stenosis noted in the right carotid system. 2. No hemodynamically significant stenosis noted in the left carotid system. EKG revealed a sense V paced rhythm Tele reveals ACS B paced rhythm Patient is a 83-year-old female who presented with episode of syncope. Patient did have hypotension on arrival of the EMS which improved after fluid therapy. Dehydration could have contributed to clinical picture. Patient has a baseline history of valvular heart disease and is status post TAVR. There is questionable information of possible new valvular heart disease. Patient does have history of sick sinus syndrome and does have Medtronic pacemaker. Syncope Hypotension Questionable dehydration Sick sinus syndrome, status post pacemaker (Medtronic implantation) Valvular heart disease Status post TAVR Diastolic heart failure Pulmonary hypertension Atrial fibrillation Cardiac suggestion for management: Manage on telemetry Follow up electrolytes and kidney function tests and correct abnormalities Fluid resuscitation is advised Keep potassium above 4 and magnesium above 2 Request echocardiogram Request for interrogation of pacemaker (Medtronic) Long-term continuation of anticoagulation is advised (on Xarelto) Further evaluation and management depends on the above and clinical course A total of 55 minutes was spent reviewing the patient record, examining the patient, making a diagnostic and therapeutic plan, discussing this plan with medical personnel, following up on diagnostic studies and following the patient for clinical stability excluding any and all procedures. At least 50% of this time was spent in direct, [id number] contact. Thank you for allowing me to participate in this patient's care. Further recommendations will depend on patient's clinical course. Please do not hesitate to contact me if you have any questions or concerns. This medical document was created using electronic medical record system with [employer] computerized dictation system. Although this document has been carefully reviewed, there may still be some phonetic and typographical errors. These areas are purely typographical due to the imperfection of the software programs, and do not reflect any compromise in the patient's medical care. Plan discussed with: Patient, Other (nurse) MELY LEAL MD Jul 03, 2024 07:43
[2024-07-03] MEDS: cefTRIAXone 1GM/50ML D5W 50 ML IV SCH (12:08)
[2024-07-03] MEDS: NIFEdipine ER 30 MG TAB PO SCH (12:09)
[2024-07-03] MEDS: CYANOCOBALAMIN (B-12) 1000 MCG/1 ML VIAL IM ONE (12:21)
--- NOTE | 2024-07-03 12:38 | ECG ---
[facility] Test Date: 2024-07-01 Test Time: 13:38:25 Pat Name: HAROON ALBARADO Department: ed Room: [facility]0T B Gender: F Resource Agent: hugh : 1940 Requested By: WESLY PAGAN Order Number: [id number] Reading MD: Bernard Isaac Measurements Intervals [place] Rate: 68 P: 0 OK: 0 QRS: -70 QRSD: 129 T: 105 QT: 456 QTc: 486 Interpretive Statements Atrial paced and atrial sensing noted,ventricular-paced rhythm No further analysis attempted due to paced rhythm Electronically Signed On 07-03-2024 17:55:31 PST by Bernard Isaac Please click the below link to view image of tracing.
--- NOTE | 2024-07-03 14:58 | DVHSR ---
APPROVED REPORT EXAM: Two-dimensional and M-mode echocardiogram with Doppler and color Doppler. Blood Pressure: 139/92 mmHg INDICATION Presyncope History of aortic stenosis Surgery/Intervention Valve Replacement: Type: TAVR RISK FACTORS Height: 5'5", Weight: 162 DIMENSIONS LVDd3.5 (3.8-5.7cm)LA (2D)4.1 (1.9-4.0cm)Aortic Root2.8 (2.0-3.7cm) LVDs2.5 (2.5-4.0cm)LA (MM) (1.9-4.0cm)Aortic Cusp Exc1.3 (1.5-2.0cm) EF (%) 60.0 (55-70%)Rt. Atrium4.2 (1.9-4.0cm)Asc. Aorta cm IVSd1.2 (0.7-1.1cm)RV (D)3.9 (1.8-2.4cm) PWd1.1 (0.7-1.1cm) Mitral Valve MitralMitral Stenosis E wave0.96m/sMV Mean GR.mmHg A wave0.27m/sMV Peak GR.mmHg E/A ratio3.62D MVAcm2 DECEL [id number] 1/2 Timems Aortic Valve Aortic ValveAortic Stenosis V11.08m/Get Mean GR.11mmHg V22.22m/Get Peak GR.20mmHg LVOT Diameter1.8 (1.8-2.4cm)Doppler AVA1.24cm2 Pulmonic Valve V20.86m/s Tricuspid Valve TR Velocity3.22m/s [id number] Other Information Technically limited study due to body habitus. Conclusion Left ventricle: Mild concentric left ventricular hypertrophy was seen. LVEF was 60-65%. There was n o gross wall motion abnormality. Right ventricle: Right ventricle was normal-sized. Moderate biatrial enlargement was seen. Aortic valve: Bioprosthetic valve was seen in aortic position. It worked properly. There was no st enosis/mismatch/insufficiency. Mild mitral regurgitation was seen. Moderate tricuspid regurgitation was seen. Pulmonary valve was not well visualized. Right ventricular systolic pressure was assessed at 45 mm Hg. There was no pericardial effusion. IV C was normal-sized with normal respiratory variation.
--- NOTE | 2024-07-03 15:55 | DVHPNRES ---
Progress Note Date Seen: Jul 03, 2024 Resident Creating Document: ANUJ CERNA RESIDENT Medical Necessity Reason Pt with a Central, PICC or Fol: No Subjective Review of Systems Patient is a 83-year-old female with past medical history of aortic stenosis, atrial fibrillation, HFpEF EF 60%, hypertension, dyslipidemia, dementia, sick sinus syndrome s/p pacemaker, nonobstructive coronary artery disease came in due to syncope. According to the patient, yesterday on 07/01/2024 she was in the kitchen washing dishes, when she suddenly started feeling nauseous which was followed by dizziness, seeing white lines in her visual field and then lost consciousness. Patient states that her family noticed and eventually sat her down. She reports feeling similar symptoms before, symptoms also occur sometimes when she is sitting. Patient notes that a couple of months ago she had a valve replacement procedure at [facility], after which the symptoms of dizziness improved, however, she notes symptoms have returned recently. Patient is on home oxygen 2 L. Patient's ship's cook: Dr. Michele Patient's PCP: Dr. Odilon Bautista Past surgical history: Denies Home medications: Carvedilol, donepezil, gabapentin, magnesium oxide, nifedipine, oxybutynin, Protonix, Xarelto Past Hospitalization: In April 2024 for hypertensive crisis Social & Personal history: Patient lives with her daughter. Denies using tobacco, alcohol, drugs. Allergies: Morphine Patient seen and examined at bedside. Patient is alert and oriented to time, place person and responding to all questions. Patient notes a headache, full neuro exam was conducted which was largely unremarkable. Objective vital signs Vital Sign Date Time Temp Pulse Resp B/P (MAP) Pulse Ox O2 Delivery O2 Flow Rate FiO2 07/03/24 13:00 98.2 76 18 129/88 (102) 95 98.2 07/03/24 08:00 Room Air* 0 21 Total Intake and Output 07/02/24 07/02/24 07/03/24 15:00 23:00 07:00 Intake Total 180 ml Balance 180 ml medications Current Medications Medications Dose Ordered Sig/Clay Route Start Time Stop Time Status Last Admin Dose Admin Rivaroxaban 15 mg QPM PO 07/02/24 18:00 07/02/24 17:02 15 MG Famotidine 20 mg DAILY PO 07/02/24 10:00 07/03/24 12:08 20 MG Nifedipine 30 mg DAILY PO 07/03/24 10:00 07/03/24 12:09 30 MG Ceftriaxone Sodium 50 ml @ 100 mls/hr DAILY@09 IV 07/03/24 09:00 07/03/24 12:08 100 MLS/HR Hydralazine HCl 10 mg Q6HP PRN IV 07/02/24 17:00 Examination General Appearance: Cooperative. Well developed. Well nourished. NAD Head Exam: Normal inspection Neck Exam: Normal inspection. Non-tender. Normal alignment Pulmonary/Respiratory: Chest non-tender. Clear bilateral breath sounds, no crackles, no wheezing. Cardiovascular/Chest: Regular rate and rhythm. No murmurs. No JVD. Peripheral Pulses: 2+ Radial (R). 2+ Radial (L). 2+ Pedal (R). 2+ Pedal (L) Abdominal Exam: Normal bowel sounds. Soft. normal abdomen, no visible veins, Nontender. No hepatospenomegaly. No masses Ankle Exam: Negative ankle edema Lower extremities: Negative lower extremity edema Neuro/Mental Status: A&O x4. Coherent. Thoughts/Psych: Normal thought pattern. Appropriate mood and affect. Good judgement and insight Skin Exam: Normal inspection. Normal color. Warm. Dry laboratory and microbiology Laboratory Tests 07/01/24 14:21 Test 07/01/24 14:21 Range/Units Serum Glucose 102 74-106 mg/dL Microbiology Date/Time Source Procedure Growth Status 07/02/24 06:30 Voided Urine Urine Culture - Preliminary Resulted Labs and/or images reviewed: Labs reviewed by me, Image(s) reviewed by me Problem List/Assessment/Plan Problem List/Assessment/Plan Syncope likely due to autonomic dysfunction versus aortic stenosis? - head CT: No acute intracranial abnormality. Hyperdense opacification of the left maxillary sinus and left sphenoid sinus which may reflect in inspissated secretions or fungal sinusitis - carotid Doppler ultrasound: No hemodynamically significant stenosis noted in the right and left carotid systems. - IV NS 250 mL bolus once Acute on chronic heart failure with preserved ejection fraction, EF 55% Elevated RVSP of 45 S/p TAVR - CXR: Mild cardiomegaly with mild pulmonary vascular congestion - pacemaker interrogation scheduled - ECHO: LVEF 60-65%. Moderate biatrial enlargement. Bioprosthetic aortic valve in aortic position, working properly without any stenosis/ mismatch/insufficiency. Mild mitral regurgitation. Moderate tricuspid regurgitation. RVSP 45. Acute complicated UTI - IV ceftriaxone daily Nonobstructive coronary artery disease Hypertensive heart disease Dyslipidemia - nifedipine 30 mg p.o. daily Hypercoagulable state secondary to chronic atrial fibrillation - Xarelto 15 mg p.o. q.p.m. History of sick sinus syndrome, s/p pacemaker 12 years ago - monitor Vitamin B12 deficiency - repleted PUD prophylaxis: Pepcid 20 mg Goals of care: Full code, discussed for >16 minutes on 07/02/24 Plan discussed with patient Plan discussed with Dr. Huber Plan discussed with: Patient, Daughter, Other (RN) My Orders My Orders Orders - ANUJ CERNA Procedure Category Date Status Time Hydralazine Injection PHA 07/02/24 In Process (Apresoline Inject 17:00 Date of Service: Jul 03, 2024 Billing Provider: MILLA HUBER MD Common Visit Codes: [id number] INP/OBS CARE(MOD) ANUJ CERNA Jul 03, 2024 15:55 MILLA HUBER MD Jul 04, 2024 08:29
[2024-07-03] MEDS: SODIUM CHLORIDE 0.9% 250 ML IV ONE (18:39)
[2024-07-04] VITALS (7 sets, daily range): BP systolic 128–165; BP diastolic 80–91; PULSE 83–113; RESP 14–18; TEMP 37; O2SAT 95–97
[2024-07-04 05:07] LABS: Chloride 106 mmol/L (98-107); Potassium 3.9 mmol/L (3.5-5.1); Sodium 140 mmol/L (136-145)
[2024-07-04 05:08] LABS: Anion Gap 7 (5-15); Calcium 9.9 mg/dL (8.7-10.4); Carbon Dioxide 27 mmol/L (20-31)
[2024-07-04 05:13] LABS: BUN/Creatinine Ratio 15.8 (10.0-20.0); Blood Urea Nitrogen 12 mg/dL (9-23); Glucose 94 mg/dL (74-106)
--- NOTE | 2024-07-04 11:11 | DVHDSRES ---
Discharge Summary Date of Admission Resident Creating Document: ANUJ CERNA RESIDENT Jul 02, 2024 at 00:12 Date of Discharge: Jul 04, 2024 Admitting Diagnosis syncope Labs/Diagnostic Data: Laboratory Results Test 07/04/24 04:30 07/02/24 17:30 07/02/24 17:24 07/02/24 10:52 Sodium Level 140 mmol/L (136-145) Potassium Level 3.9 mmol/L (3.5-5.1) Chloride Level 106 mmol/L (98-107) Carbon Dioxide Level 27 mmol/L (20-31) Anion Gap 7 (5-15) Blood Urea Nitrogen 12 mg/dL (9-23) Creatinine 0.76 mg/dL (0.550-1.02) Glomerular Filtration Rate Calc 77 mL/min (>90) BUN/Creatinine Ratio 15.8 (10.0-20.0) Serum Glucose 94 mg/dL (74-106) Calcium Level 9.9 mg/dL (8.7-10.4) Influenza Type A Antigen Negative (Negative) Influenza Type B Antigen Negative (Negative) SARS-CoV-2 Antigen (Rapid) Negative (NEGATIVE) Prothrombin Time 13.5 sec (9.3-11.8) Prothrombin Time INR 1.30 (0.9-1.15) Test 07/02/24 06:30 07/02/24 00:36 07/01/24 16:56 07/01/24 14:21 Urine Color Yellow (Yellow) Urine Clarity Turbid (Clear) Urine pH 5.5 (5.0-9.0) Urine Specific [place] 1.021 (1.001-1.035) Urine Protein Trace (Negative) Urine Ketones Negative (Negative) Urine Blood Negative /uL (Negative) Urine Nitrite 2+ (Negative) Urine Bilirubin Negative (Negative) Urine Urobilinogen Normal mg/dL (Negative) Urine Leukocyte Esterase 3+ /uL (Negative) Urine RBC 2 /hpf (0 - 4) Urine WBC 98 /hpf (0 - 5) Urine Squamous Epithelial Cells Few /hpf (<5) Urine Bacteria Few /hpf (None Seen) Urine Mucus Few (None Seen) Urine Yeast (Budding) Occasional /hpf (None Urine Glucose Normal mg/dL (Normal) Urine Opiates Screen Neg (NEGATIVE) Urine Fentanyl Screen Neg (NEGATIVE) Urine Barbiturates Screen Neg (NEGATIVE) Urine Phencyclidine Screen Neg (NEGATIVE) Urine Amphetamines Screen Neg (NEGATIVE) Urine Benzodiazepines Screen Neg (NEGATIVE) Urine Cocaine Screen Neg (NEGATIVE) Urine Cannabinoids Screen Neg (NEGATIVE) Hemoglobin A1c 6.1 % A1C (<5.7) B-Type Natriuretic Peptide 106.13 pg/mL (0-100) Vitamin B12 Level 386 pg/mL (211-911) Folic Acid 16.13 ng/mL (>5.38) Thyroid Stimulating Hormone (TSH) 1.11 uIU/mL (0.55-4.78) Troponin I High Sensitivity < 3 ng/L (</=34) White Blood Count 8.2 10^3/uL (4.4-10.8) Red Blood Count 4.28 10^6/uL (4.0-5.20) Hemoglobin 13.8 g/dL (12.2-16.2) Hematocrit 41.6 % (36.0-46.0) Mean Corpuscular Volume 97.2 fL (80.0-100.0) Mean Corpuscular Hemoglobin 32.1 pg (28.0-32.0) Mean Corpuscular Hemoglobin Concent 33.1 g/dL (32.0-36.0) Red Cell Distribution Width 14.6 % (11.8-14.3) Platelet Count 176 10^3/uL (140-450) Mean Platelet Volume 7.8 fL (6.9-10.8) Neutrophils (%) (Auto) 67.3 % (37.0-80.0) Lymphocytes (%) (Auto) 17.9 % (10.0-50.0) Monocytes (%) (Auto) 9.8 % (0.0-12.0) Eosinophils (%) (Auto) 4.1 % (0.0-7.0) Basophils (%) (Auto) 0.9 % (0.0-2.0) Neutrophils # (Auto) 5.6 10 ^3/uL (1.6-8.6) Lymphocytes # (Auto) 1.5 10 ^3/uL (0.4-5.4) Monocytes # (Auto) 0.8 10 ^3/uL (0-1.3) Eosinophils # (Auto) 0.3 10 ^3/uL (0-0.8) Basophils # (Auto) 0.1 10 ^3/uL (0-0.2) Nucleated Red Blood Cells 0.1 % Lactic Acid Level 1.2 mmol/L (0.4-2.0) Other Laboratory Tests 07/04/24 04:30 07/01/24 14:21 Brief Hx & Hospital Course: Patient is a 83-year-old female with past medical history of aortic stenosis, atrial fibrillation, HFpEF EF 60%, hypertension, dyslipidemia, dementia, sick sinus syndrome s/p pacemaker, nonobstructive coronary artery disease came in due to syncope. According to the patient, yesterday on 07/01/2024 she was in the kitchen washing dishes, when she suddenly started feeling nauseous which was followed by dizziness, seeing white lines in her visual field and then lost consciousness. Patient states that her family noticed and eventually sat her down. She reports feeling similar symptoms before, symptoms also occur sometimes when she is sitting. Patient notes that a couple of months ago she had a valve replacement procedure at [facility], after which the symptoms of dizziness improved, however, she notes symptoms have returned recently. Patient is on home oxygen 2 L. Hospital course: head CT showed No acute intracranial abnormality. Hyperdense opacification of the left maxillary sinus and left sphenoid sinus which may reflect in inspissated secretions or fungal sinusitis. carotid Doppler ultrasound showed No hemodynamically significant stenosis noted in the right and left carotid systems. CXR showed Mild cardiomegaly with mild pulmonary vascular congestion, ECHO showed LVEF 60-65%. Moderate biatrial enlargement. Bioprosthetic aortic valve in aortic position, working properly without any stenosis/ mismatch/insufficiency. Mild mitral regurgitation. Moderate tricuspid regurgitation. RVSP 45. Patient was given IV NS 250 mL bolus x3. Cardiology was also taken on board, pacemaker interrogation was completed on 07/03/24. Patient was continued on IV ceftriaxone, and home med xarelto and nifedipine. On the day of discharge, pt appeared well clinically and hemodynamically, Patients daughter was at bedside, all questions were answered and concerns were addressed. Patient was scheduled for appointment with sdc teacher Dr. Michele on 07/05/24. Her hospital course was uncomplicated. General Appearance: Cooperative. Well developed. Well nourished. NAD Head Exam: Normal inspection Neck Exam: Normal inspection. Non-tender. Normal alignment Pulmonary/Respiratory: Chest non-tender. Clear bilateral breath sounds, no crackles, no wheezing. Cardiovascular/Chest: Regular rate and rhythm. No murmurs. No JVD. Peripheral Pulses: 2+ Radial (R). 2+ Radial (L). 2+ Pedal (R). 2+ Pedal (L) Abdominal Exam: Normal bowel sounds. Soft. normal abdomen, no visible veins, Nontender. No hepatospenomegaly. No masses Ankle Exam: Negative ankle edema Lower extremities: Negative lower extremity edema Neuro/Mental Status: A&O x4. Coherent. Thoughts/Psych: Normal thought pattern. Appropriate mood and affect. Good judgement and insight Skin Exam: Normal inspection. Normal color. Warm. Dry Consults/Reason for consult Cardiology- presyncope Operations or Procedures EXAM: CT HEAD WITHOUT CONTRAST INDICATION: Syncope TECHNIQUE: CT of the head without intravenous contrast. Coronal and sagittal reformatted images are submitted. Radiation Dose : 1. Head: CT Dose: CTDI volume is 60.64 mGy. Dose-length product is 1194.81 mGy*cm The dose indicators for CT are the volume Computed Tomography (CT) Dose Index (CTDIvol) and the Dose Length Product (DLP), and are measured in units of mGy and mGy-cm, respectively. These indicators are not patient dose, but values generated from the CT scanner acquisition factors. The report includes radiation exposure data for exposures received during this examination. All CT scans at this medical facility are performed using dose modulation techniques as appropriate to a performed exam including the following: Automated exposure control was utilized; adjustment of the MA and/or KV according to patient size; and use of iterative reconstruction technique. COMPARISON: CT HEAD WITHOUT CONTRAST on DOS: 10/27/23 FINDINGS: There is no evidence of acute intracranial hemorrhage, extra-axial collection, mass effect, midline shift, herniation or hydrocephalus. There are periventricular and subcortical hypodensities, nonspecific, but likely reflecting sequelae of chronic microvascular ischemic changes. The ventricles, sulci and cisterns are age appropriate. The higgins-white differentiation is intact. Mastoid air cells. Opacification of the left maxillary sinus and left sphenoid sinus. The soft tissue density is slightly hyperattenuating. No depressed calvarial fracture. The surrounding soft tissues are unremarkable. IMPRESSION: 1. No acute intracranial abnormality. 2. Hyperdense opacification of the left maxillary sinus and left sphenoid sinus which may reflect inspissated secretions or fungal sinusitis. : Two-dimensional and M-mode echocardiogram with Doppler and color Doppler. Blood Pressure: 139/92 mmHg INDICATION Presyncope History of aortic stenosis Surgery/Intervention Valve Replacement: Type: TAVR RISK FACTORS Height: 5'5", Weight: 162 DIMENSIONS LVDd 3.5 (3.8-5.7cm) LA (2D) 4.1 (1.9-4.0cm) Aortic Root 2.8 (2.0- 3.7cm) LVDs 2.5 (2.5-4.0cm) LA (MM) (1.9-4.0cm) Aortic Cusp Exc 1.3 (1.5- 2.0cm) EF (%) 60.0 (55-70%) Rt. Atrium 4.2 (1.9-4.0cm) Asc. Aorta cm IVSd 1.2 (0.7-1.1cm) RV (D) 3.9 (1.8-2.4cm) PWd 1.1 (0.7-1.1cm) Mitral Valve Mitral Mitral Stenosis E wave 0.96m/s MV Mean GR. mmHg A wave 0.27m/s MV Peak GR. mmHg E/A ratio 3.6 2D MVA cm2 DECEL Time 167ms PRESS 1/2 Time ms Aortic Valve Aortic Valve Aortic Stenosis V1 1.08m/s AO Mean GR. 11mmHg V2 2.22m/s AO Peak GR. 20mmHg LVOT Diameter 1.8 (1.8-2.4cm) Doppler ROMÁN 1.24cm2 Pulmonic Valve V2 0.86m/s Tricuspid Valve TR Velocity 3.22m/s RVSP 44mmHg Other Information Technically limited study due to body habitus. Conclusion Left ventricle: Mild concentric left ventricular hypertrophy was seen. LVEF was 60-65%. There was no gross wall motion abnormality. Right ventricle: Right ventricle was normal-sized. Moderate biatrial enlargement was seen. Aortic valve: Bioprosthetic valve was seen in aortic position. It worked properly. There was no stenosis/mismatch/insufficiency. Mild mitral regurgitation was seen. Moderate tricuspid regurgitation was seen. Pulmonary valve was not well visualized. Right ventricular systolic pressure was assessed at 45 mm Hg. There was no pericardial effusion. IVC was normal-sized with normal respiratory variation. Condition at Discharge: Good Final Diagnosis/Problems List Syncope likely due to autonomic dysfunction Acute on chronic heart failure with preserved ejection fraction, EF 55% Elevated RVSP of 45 S/p TAVR Mild mitral regurgitation. Moderate tricuspid regurgitation. RVSP 45. Acute complicated UTI Nonobstructive coronary artery disease Hypertensive heart disease Dyslipidemia Hypercoagulable state secondary to chronic atrial fibrillation History of sick sinus syndrome, s/p pacemaker 12 years ago Vitamin B12 deficiency Discharge Disposition: Home Discharge Instruct/Medications Diet: Cardiac 2g Na,low cholest Activity: No Restrictions, As Tolerated Follow Up/Referral: please follow up with sdc teacher, Dr. Michele in the clinic on Tuesday07/10/24 please follow up with pcp in 1-2 weeks Medications: continue home medication Discharge Statement: "Patient was advised to return to the ER or call 911 if any headaches, dizziness, shortness of breath, chest pain, abdominal pain, bleeding, fevers, or worsening of medical condition. Patient was counseled about treatment plan, medications, possible side effects, patientverbalized understanding. All questions were answered to the best of my ability. This discharge took greater then 30 minutes in planning, reviewing documentation, counseling the patient, and discussing with other team members." ASSESSMENT ASSESSMENT Assessment Syncope likely due to autonomic dysfunction versus aortic stenosis? Acute on chronic heart failure with preserved ejection fraction, EF 55% Elevated RVSP of 45 S/p TAVR Mild mitral regurgitation. Moderate tricuspid regurgitation. RVSP 45. Acute complicated UTI Nonobstructive coronary artery disease Hypertensive heart disease Dyslipidemia Hypercoagulable state secondary to chronic atrial fibrillation History of sick sinus syndrome, s/p pacemaker 12 years ago Vitamin B12 deficiency Date of Service: Jul 04, 2024 Billing Provider: MILLA BARRIOS MD Common Visit Codes: 97620-RPE/OBS DISCH DAY >30min ANUJ CERNA Jul 04, 2024 11:11 MILLA BARRIOS MD Jul 04, 2024 11:53
[2024-07-04] MEDS: SODIUM CHLORIDE 0.9% 250 ML IV ONE (11:39)
[2024-07-04] MEDS: ACETAMINOPHEN 325 MG TAB PO PRN (12:20)
[2024-07-04] MEDS ORDERED: DILT-29 PO (13:34)
--- NOTE | 2024-07-09 14:05 | ECG ---
[facility] Test Date: 2024-07-01 Test Time: 15:10:42 Pat Name: HAROON ALBARADO [facility] Gender: F Customer Relations Specialist: hugh : 1940 Requested By: WESLY PAGAN Order Number: [id number] Reading MD: Bernard Isaac Measurements Intervals [place] Rate: 68 P: 247 FL: 171 QRS: -74 QRSD: 128 T: 102 QT: 456 QTc: 486 Interpretive Statements Atrial-sensed ventricular-paced rhythm No further analysis attempted due to paced rhythm Electronically Signed On 07-10-2024 17:51:05 PST by Bernard Isaac Please click the below link to view image of tracing.
== END 2024-07-04 19:44 | disposition home or self-care (01) | DRG 73 ==
LOC: EDBD 13:21 → ER 13:21 → TELE 07-02 00:12 → TELE-EAST 07-02 21:58
PROVIDERS: ADMIT Internal Medicine; ATTEND Emergency Medicine
DX: G90.89 Other disorders of autonomic nervous system (principal); I50.33 Acute on chronic diastolic (congestive) heart failure; I48.20 Chronic atrial fibrillation, unspecified; N39.0 Urinary tract infection, site not specified; D68.69 Other thrombophilia; I11.0 Hypertensive heart disease with heart failure; I08.3 Combined rheumatic disorders of mitral, aortic and tricuspid valves; E86.0 Dehydration; R73.03 Prediabetes; E78.5 Hyperlipidemia, unspecified; Z96.642 Presence of left artificial hip joint; Z20.822 Contact with and (suspected) exposure to COVID-19; F03.90 Unspecified dementia, unspecified severity, without behavioral disturbance, psychotic disturbance, mood disturbance, and anxiety; K21.9 Gastro-esophageal reflux disease without esophagitis; I27.20 Pulmonary hypertension, unspecified; I25.10 Atherosclerotic heart disease of native coronary artery without angina pectoris; E53.8 Deficiency of other specified B group vitamins; I49.5 Sick sinus syndrome; Z88.5 Allergy status to narcotic agent; Z79.891 Long term (current) use of opiate analgesic; Z79.899 Other long term (current) drug therapy; Z95.2 Presence of prosthetic heart valve; Z95.0 Presence of cardiac pacemaker; Z90.49 Acquired absence of other specified parts of digestive tract; Z87.891 Personal history of nicotine dependence
CPT/HCPCS: 36415; 70450; 71045; 80048; 80307; 81001; 82607; 82746; 83036; 83605; 83880; 84443; 84484; 85025; 85610; 87086; 87426; 87804; 93005; 93306; 93886; 99291; G0378

== ENCOUNTER 2024-10-03 17:36 | Inpatient (IN) | payer MEDICARE, MEDICAID ==
[~2024-10-03] VITALS: Ht 157.5 cm; Wt 74.1 kg
[~2024-10-03 17:36] MED LIST changes: +ALBU108A5 PO; +DILT-29 PO; +FURO20TA4 PO; -HYDR-4902 PO; +HYDR50TA47 PO; +IRBE300T43 PO; +ISOS1TAB28 PO; +MONT-8 PO; -NIFE1TAB31 PO; +OMEP1CAP70 PO; +RIV20T PO; -ZOFR4T PO
[2024-10-03 18:52] LABS: Basophils # (auto) 0.1 10 ^3/uL (0-0.2); Basophils % (auto) 0.9 % (0.0-2.0); Eosinophils # (auto) 0.4 10 ^3/uL (0-0.8); Eosinophils % (auto) 5.3 % (0.0-7.0); Hematocrit 39.4 % (36.0-46.0); Hemoglobin 13.5 g/dL (12.2-16.2); Lymphocytes # (auto) 2.3 10 ^3/uL (0.4-5.4); Lymphocytes % (auto) 33.3 % (10.0-50.0); Mean Corpuscular Hemoglobin 33.2 pg (28.0-32.0); Mean Corpuscular Hgb Conc. 34.2 g/dL (32.0-36.0); Mean Corpuscular Volume 96.9 fL (80.0-100.0); Monocytes # (auto) 0.7 10 ^3/uL (0-1.3); Monocytes % (auto) 10.3 % (0.0-12.0); Neutrophils # (auto) 3.4 10 ^3/uL (1.6-8.6); Neutrophils % (auto) 50.2 % (37.0-80.0); Platelet Count (auto) 192 10^3/uL (140-450); Red Blood Cells 4.07 10^6/uL (4.0-5.20); Red Cell Distribution Width 14.3 % (11.8-14.3); White Blood Cell 6.8 10^3/uL (4.4-10.8)
[2024-10-03 19:18] LABS: Alanine Aminotransferase 18 U/L (7-40); Albumin 4.5 g/dL (3.2-4.8); Alkaline Phosphatase 94 U/L (46-116); Anion Gap 8 (5-15); Aspartate Aminotransferase 22 U/L (13-40); BUN/Creatinine Ratio 28.8 (10.0-20.0); Bilirubin, Total 0.4 mg/dL (0.2-1.0); Calcium 9.9 mg/dL (8.7-10.4); Carbon Dioxide 26 mmol/L (20-31); Chloride 106 mmol/L (98-107); Glucose 95 mg/dL (74-106); Potassium 4.2 mmol/L (3.5-5.1); Sodium 140 mmol/L (136-145); Total Protein 8.1 g/dL (5.7-8.2)
[2024-10-03 19:19] LABS: Blood Urea Nitrogen 23 mg/dL (9-23)
--- NOTE | 2024-10-03 19:26 | ED.PDOC ---
Musculoskeletal HPI Comments HPI: 84 y/o F, brought in by daughter presents to the ED for CC of lower extremity swelling and nonspecific chest pain. Per patient's daughter, patient has been experiencing bilateral leg swelling with associated cough and bilateral rib pain x4days. Patient's daughter comments on pain worsening when patient inhales and exhales to take a breath; resulting in inconsolable moaning and groaning. Patient complains of current 7/10 pain. No other symptoms or modifying factors present at this time. Denies any fall or trauma or injury. VITALS: T:97.5 RR:18 HR:88 BP:142/79 SPO2:97% Past Medical History: ASTHMA, DEMENTIA, HTN, LEAKY VALVE Past Surgical History: PM, VALVE replacement, RIGHT HIP, LEFT HIP, CHOLECYSTECTOMY HPI: Poor Historian. REVIEW OF SYSTEMS: CONSTITUTIONAL: Denies acute: fever, diaphoresis, chills, HEAD: Denies acute: headache, photophobia Eyes: Denies acute: Double vision, vision loss, eye pain, eye discharge. EARS: Denies acute: tinnitus, hearing loss, ear discharge, ear pain, THROAT: Denies acute: sore throat, swelling, difficulty swallowing , pain with swallowing, change in voice. NECK: Denies acute: neck pain, neck swelling, stiff neck. HEART: Denies acute : palpitations, LUNGS: Denies acute: SOB, wheezing, cough, hemoptysis ABDOMEN: Denies acute: abdominal pain, Nausea, Vomiting, diarrhea, melena , hematemesis, hematochezia SKIN: Denies acute: rash, redness, lesions, itchiness. EXTREMITIES: Denies acute: calf pain, numbness, tingling, weakness, Denies acute: Low back pain. Neuro: Denies acute: focal neurological deficit, motor or sensory focal neurological deficit, tremors, seizure like activity, confusion, dizziness, change in mental status, loss of bowel or bladder function, cauda equina like symptoms. : Denies acute: dysuria, hematuria, flank pain, increase in urinary frequency. PSYCH: Denies acute: hallucination, suicidal ideation, homicidal ideation. FEMALE: Denies acute: abnormal vaginal bleeding, foul odor, unusual discharge. PHYSICAL EXAM: General: ----mild----acute distress, awake and alert. Head: normocephalic, atraumatic. Neck: supple, trachea is midline, no swelling. Throat: Normal phonation. Eyes:, no erythema, no purulent discharge, no proptosis, no icterus. Heart: regular rate, regular rhythm, no significant murmur appreciated. Lungs: no apparent respiratory distress, Able to speak in full sentences. No wheezing, no rhonchi, no crackles. No stridors Clear to auscultation bilaterally. Abdomen: non tender to palpation, non distended, soft, no guarding, no rebound, + bowel sounds. Neuro: Awake, Alert, oriented to name, self, situation, follows commands GCS=15. Speech is normal. Skin: no petechia, no purpura, no cyanosis, non-pale, not jaundice. Lower extremities: --trace bilateral- Pitting edema no deformity, no focal swelling, no calf TTP. Makes eye contact. moves all four extremities. Face: no apparent facial droop. Ambulating in the ED with a walker ED COURSE: Chief Complaint: Extremity Swelling Time Seen by MD: 18:50 Primary Care Provider: MARGOT Reviewed Notes: Nurses Notes, Allergies Allergies: Coded Allergies: Morphine (Verified Allergy, Unknown, 12/28/22) Home Meds Reported Medications Diltiazem Hcl (DILTIAZEM HCL ER) 240 Mg Cap, 1 CAP PO DAILY 07/04/24 Bisacodyl (Dulcolax) 10 Mg Sup, 10 MG RE DAILY PRN for FOR CONSTIPATION, SUPP 04/26/24 Magnesium Hydroxide (Milk Of Magnesia) 400 Mg/5 Ml Bernie, 30 ML PO DAILY PRN for FOR CONSTIPATION, ML 04/26/24 Acetaminophen (Apap) 325 Mg Tab, 2 TAB PO Q4HPRN PRN for mild pain 1-3, TAB 04/26/24 Pantoprazole Sodium Sesquihydr (Pantoprazole Sodium) 40 Mg Tab, 1 TAB PO BID 04/26/24 Oxybutynin Chloride (Oxybutynin Chloride) 5 Mg Tab, 10 MG PO DAILY 04/26/24 Rivaroxaban (Xarelto Tablet) 15 Mg Tb, 1 TAB PO DAILY 04/26/24 Docusate Sodium (Colace) 100 Mg Cap, 1 CAP PO BID PRN for FOR CONSTIPATION, #30 CAP 06/22/21 Gabapentin (Gabapentin) 300 Mg Cap, 300 MG PO DAILY for 30 Days, MG 06/22/21 Donepezil Hydrochloride (DONEPEZIL HCL) 10 Mg Tab, 10 MG PO DAILY for 30 Days, MG 06/22/21 Carvedilol (Carvedilol) 25 Mg Tab, 25 MG PO Q12HR for 30 Days, MG 06/22/21 Information Source: Patient, Relative Mode of Arrival: Ambulatory Was a procedure done? Was a procedure done?: No Differential Diagnosis EXT Differential Diagnosis: Cellulitis, CHF, Deep Vein Thrombosis, Compartment Syn drome, Fracture, Sprain, Dislocation, Laceration, Gout, DJD, Myocardial Infarction, Contusion, Strain, Rheumatoid, Septic, Hernia, Neurovascular injury, Arthritis, Bursitis, N/A (Ddx include but not limitied to gastritis, musculoskeletal pain, radiculopathy, atypical chest pain, dissection, aneurysm, ACS, unstable angina, hiatal hernia, GERD, anxiety, costochondritis, PE, pneumothroax, neoplasm, cardiac ischemia, drug abuse, anemia.) X-Ray, Labs, Meds, VS Vital Signs Date Time Temp Pulse Resp B/P (MAP) Pulse Ox O2 Delivery O2 Flow Rate FiO2 10/03/24 18:17 75 10/03/24 17:48 97.5 88 18 142/79 (100) 97 97.5 Lab Test 10/03/24 21:24 10/03/24 19:18 10/03/24 18:24 10/03/24 18:12 Range/Units Troponin I High Sensitivity 3 L 3 L 4 </=34 ng/L White Blood Count 6.8 4.4-10.8 10^3/uL Red Blood Count 4.07 4.0-5.20 10^6/uL Hemoglobin 13.5 12.2-16.2 g/dL Hematocrit 39.4 36.0-46.0 % Mean Corpuscular Volume 96.9 80.0-100.0 fL Mean Corpuscular Hemoglobin 33.2 H 28.0-32.0 pg Mean Corpuscular Hemoglobin Concent 34.2 32.0-36.0 g/dL Red Cell Distribution Width 14.3 11.8-14.3 % Platelet Count 192 140-450 10^3/uL Mean Platelet Volume 7.5 6.9-10.8 fL Neutrophils (%) (Auto) 50.2 37.0-80.0 % Lymphocytes (%) (Auto) 33.3 10.0-50.0 % Monocytes (%) (Auto) 10.3 0.0-12.0 % Eosinophils (%) (Auto) 5.3 0.0-7.0 % Basophils (%) (Auto) 0.9 0.0-2.0 % Neutrophils # (Auto) 3.4 1.6-8.6 10 ^3/uL Lymphocytes # (Auto) 2.3 0.4-5.4 10 ^3/uL Monocytes # (Auto) 0.7 0-1.3 10 ^3/uL Eosinophils # (Auto) 0.4 0-0.8 10 ^3/uL Basophils # (Auto) 0.1 0-0.2 10 ^3/uL Nucleated Red Blood Cells 0.0 % Sodium Level 140 136-145 mmol/L Potassium Level 4.2 3.5-5.1 mmol/L Chloride Level 106 98-107 mmol/L Carbon Dioxide Level 26 20-31 mmol/L Anion Gap 8 5-15 Blood Urea Nitrogen 23 9-23 mg/dL Creatinine 0.80 0.550-1.02 mg/dL Glomerular Filtration Rate Calc 72 >90 mL/min BUN/Creatinine Ratio 28.8 H 10.0-20.0 Serum Glucose 95 74-106 mg/dL Lactic Acid Level 1.3 0.4-2.0 mmol/L Calcium Level 9.9 8.7-10.4 mg/dL Total Bilirubin 0.4 0.2-1.0 mg/dL Aspartate Amino Transferase (AST) 22 13-40 U/L Alanine Aminotransferase (ALT) 18 7-40 U/L Alkaline Phosphatase 94 46-116 U/L B-Type Natriuretic Peptide 300.73 0-100 pg/mL Total Protein 8.1 5.7-8.2 g/dL Albumin 4.5 3.2-4.8 g/dL Urine Color Colorless Yellow Urine Clarity Clear Clear Urine pH 5.0 5.0-9.0 Urine Specific [place] 1.006 1.001-1.035 Urine Protein Negative Negative Urine Ketones Negative Negative Urine Blood Negative Negative /uL Urine Nitrite Negative Negative Urine Bilirubin Negative Negative Urine Urobilinogen Normal Negative mg/dL Urine Leukocyte Esterase 1+ Negative /uL Urine RBC None seen 0 - 4 /hpf Urine Microscopic WBC 10 H 0-5 /HPF Urine Squamous Epithelial Cells Few <5 /hpf Urine Bacteria Few H None Seen /hpf Urine Glucose Normal Normal mg/dL [facility] [id number] [facility] [address] Ph: [phone] DIAGNOSTIC IMAGING Diagnostic Imaging Report : [id number] Signed PATIENT: HAROON ALBARADO ACCT: [id number] UNIT: [id number] : 1940 LOC: ER ROOM / BED: / AGE / SEX: 84 / F ADM STATUS: REG ER SERVICE 06 ORDERING PHYSICIAN: VITALIY CARTER DO PROCEDURE(s): CXRP - CHEST PORTABLE REASON: CP ORDER NUMBER(s): [id number], ACCESSION NUMBER(s): [id number] CHEST RADIOGRAPH Indication: CP Technique: Single frontal view of the chest was obtained Comparison: XY CHEST PORTABLE on DOS: 07/01/24, XY CHEST PORTABLE on DOS: 04/25/24, XY CHEST PORTABLE on DOS: 12/28/23 FINDINGS: Lines and Tubes: Dual-chamber pacemaker in place with the pulse generator over the right chest. Lungs: No focal consolidation. Pleura: No effusion. No pneumothorax. Cardiomediastinal contours: Unremarkable Bones: No acute osseous abnormality. IMPRESSION: 1. No acute cardiopulmonary disease. 2. No significant change from 07/01/2024. ATED BY: RONY RICHARDS Jr., DO DICTATED DATE/TIME: 10/03/241945 SIGNED BY: RONY RICHARDS Jr., SIGNED DATE/TIME: 10/03/241945 CC: Time of 1ST Reevaluation: 19:20 Reevaluation 1ST: Unchanged Patient Education/Counseling: Diagnosis, Treatment Family Education/Counseling: Diagnosis, Treatment Comments Patient presented with the above HPI.----cardiac--workup was initiated. patient was found with the above mentioned diagnosis. the following medications were ordered: please refer to order lists of meds and tests obtained by myself Dr. Carter. Patient ED course and VS have been stabilized. Patient has been reassessed in the ED and remained in a stable condition. Pertinent incidental findings were discussed with the patient and/or family. Patient/family voices understanding and is agreeable with plan. Patient has been observed in the ED adequate length of time to insure impro vement/stability. Escalation of care considered: Consideration of escalation to observation or admission Patient is extremely poor historian. Patient has multiple cardiac problems. Patient initially voiced chest pain midsternal radiating to the back however his story changed during my evaluation. Patient was ADMITTED to the medicine team for further evaluation and treatment o f their presentation. All the reports of any imaging studies that were ordered by myself were reviewed by myself. Departure 1 Departure Time of Disposition: 20:36 Impression: Primary Impression: Chest pain Additional Impression: UTI (urinary tract infection) Disposition: ADMITTED INPATIENT Admit to: Tele Condition: Guarded Additional Instructions: [place] [address] Ph: [phone] DIAGNOSTIC IMAGING Diagnostic Imaging Report : [id number] Signed PATIENT: HAROON ALBARADO ACCT: [id number] UNIT: [id number] : 1940 LOC: ER ROOM / BED: / AGE / SEX: 84 / F ADM STATUS: REG ER SERVICE 06 ORDERING PHYSICIAN: VITALIY CARTER DO PROCEDURE(s): CXRP - CHEST PORTABLE REASON: CP ORDER NUMBER(s): [id number], ACCESSION NUMBER(s): [id number] CHEST RADIOGRAPH Indication: CP Technique: Single frontal view of the chest was obtained Comparison: XY CHEST PORTABLE on DOS: 07/01/24, XY CHEST PORTABLE on DOS: 04/25/24, XY CHEST PORTABLE on DOS: 12/28/23 FINDINGS: Lines and Tubes: Dual-chamber pacemaker in place with the pulse generator over the right chest. Lungs: No focal consolidation. Pleura: No effusion. No pneumothorax. Cardiomediastinal contours: Unremarkable Bones: No acute osseous abnormality. IMPRESSION: 1. No acute cardiopulmonary disease. 2. No significant change from 07/01/2024. ATED BY: RONY RICHARDS Jr., DO DICTATED DATE/TIME: 10/03/241945 SIGNED BY: RONY RICHARDS Jr., SIGNED DATE/TIME: 10/03/241945 CC: Discharged With: Self Critical Care Note Critical Care Time?: No Heart Score Heart Score: Heart Score Response (Comments) Value History Slightly Suspicious 0 EKG Normal 0 Age >65 2 Risk Factors >3 or Hx ASHD 2 Troponin Normal limit 0 Total 4 I personally scribed for VITALIY CARTER DO ([email or web address]) on 10/03/24 at 19:26. Electronically submitted by Nova Cochran ([email or web address]). I personally scribed for VITALIY CARTER DO ([email or web address]) on 10/03/24 at 19:54. Electronically submitted by Nova Cochran ([email or web address]). VITALIY CARTER DO Oct 03, 2024 19:26
[2024-10-03 19:44] LABS: Urine Bacteria FEW /hpf (None Seen); Urine Blood Negative /uL (Negative); Urine Clarity Clear (Clear); Urine Color Colorless (Yellow); Urine Protein, UAD Negative (Negative); Urine Specific Gravity 1.006 (1.001-1.035); Urine Squamous Epithelial Cell FEW /hpf (<5); Urine Urobilinogen Normal (Negative); Urine WBC 10 /HPF (0-5)
--- NOTE | 2024-10-03 19:48 | DVH ---
CHEST RADIOGRAPH Indication: CP Technique: Single frontal view of the chest was obtained Comparison: XY CHEST PORTABLE on DOS: 07/01/24, XY CHEST PORTABLE on DOS: 04/25/24, XY CHEST PORTABLE on DOS: 12/28/23 FINDINGS: Lines and Tubes: Dual-chamber pacemaker in place with the pulse generator over the right chest. Lungs: No focal consolidation. Pleura: No effusion. No pneumothorax. Cardiomediastinal contours: Unremarkable Bones: No acute osseous abnormality. IMPRESSION: 1. No acute cardiopulmonary disease. 2. No significant change from 07/01/2024.
[2024-10-03] MEDS: ASPirin-EC 325mg tab PO ONE (21:00)
--- NOTE | 2024-10-03 23:56 | DVHHPRES ---
History of Present Illness Resident Creating Document: NEO TEMPLE RESDIENT History of Present Illness Patient is a 84-year-old female with past medical history of aortic stenosis status post TAVR, atrial fibrillation, HFpEF EF 60%, hypertension, dyslipidemia, dementia, sick sinus syndrome s/p pacemaker, came in due to cough since 3 days. She also reports chest discomfort during cough, generalized weakness and bilateral lower limb swelling. She denies fever, nausea, vomiting, any recent sick contacts or any bowel and bladder habit changes. PMHx: aortic stenosis status post TAVR, atrial fibrillation, HFpEF EF 60%, hypertension, dyslipidemia, dementia, sick sinus syndrome s/p pacemaker PSHx: Pacemaker Family history: Noncontributory Social history: Lives with the daughter, denies smoking or any other drug use Home medication: Carvedilol, donepezil, gabapentin, magnesium oxide, nifedipine, oxybutynin, Protonix, Xarelto Allergic history: Morphine Review of Systems Review of Systems General: Reports generalized weakness HEENT: No headaches, visiual changes, hearing loss, tinnitus, nasal congestion and discharge, and sore throat. Cardiovascular: Reports chest discomfort during cough Respiratory: Reports cough Gastrointestinal: Denies nausea, vomiting, dysphagia, odynophagia, heartburn, abdominal pain, flatulence, bloating, diarrhea, constipation, change in stool, or blood in stool. Genitourinary: No dysuria, hematuria, discharge, frequency, urgency, nocturia, incontinence, and urinary retention. Endocrine: No heat or cold intolerance, polydipsia, polyuria, and polyphagia. Neurological: No dizziness, extremity weakness and numbness, tremors, gait disturbance, seizures, and memory impairment. Psychiatric: Denies depression, anxiety,or insomnia. Musculoskeletal: Denies neck pain, stiffness and swelling, back pain, muscle weakness, joint pain, stiffness, swelling, or limited range of motion. Skin: No rashes, itching, skin lesion, changes in hair, nail, skin texture and breast. Hematologic/Lymphatic: Denies easy bruising, bleeding tendencies, or lymph node enlargement. Allergies: Coded Allergies: Morphine (Verified Allergy, Unknown, 12/28/22) Exam Vital Signs Vital Signs Date Time Temp Pulse Resp B/P (MAP) Pulse Ox O2 Delivery O2 Flow Rate FiO2 10/03/24 18:17 75 10/03/24 17:48 97.5 18 142/79 (100) 97 97.5 Exam General Appearance: Alert, Oriented X3, Cooperative, No acute distress HEENT: Atraumatic, PERRLA, EOMI, Mucous membrane moist/pink Respiratory: Clear to auscultation, Normal air movement Cardiovascular: Regular rate, Normal S1, Normal S2, No murmurs, no chest wall tenderness Abdominal: Normal bowel sounds, Soft, No tenderness, No hepatospenomegaly, No masses Extremities: Reports bilateral lower limb pedal edema grade 1 Skin: No rashes, No breakdown, No significant lesion Neuro: Normal gait, Normal speech, Strength at 5/5 X4 ext, Normal tone, Sensation intact, Cranial nerves 3-12 NL, Reflexes 2+ Psych/Mental Status: Mental status NL, Mood NL Labs/Xrays Labs Test 10/03/24 21:24 10/03/24 18:24 10/03/24 18:12 Range/Units Troponin I High Sensitivity 3 L </=34 ng/L White Blood Count 6.8 4.4-10.8 10^3/uL Red Blood Count 4.07 4.0-5.20 10^6/uL Hemoglobin 13.5 12.2-16.2 g/dL Hematocrit 39.4 36.0-46.0 % Mean Corpuscular Volume 96.9 80.0-100.0 fL Mean Corpuscular Hemoglobin 33.2 H 28.0-32.0 pg Mean Corpuscular Hemoglobin Concent 34.2 32.0-36.0 g/dL Red Cell Distribution Width 14.3 11.8-14.3 % Platelet Count 192 140-450 10^3/uL Mean Platelet Volume 7.5 6.9-10.8 fL Neutrophils (%) (Auto) 50.2 37.0-80.0 % Lymphocytes (%) (Auto) 33.3 10.0-50.0 % Monocytes (%) (Auto) 10.3 0.0-12.0 % Eosinophils (%) (Auto) 5.3 0.0-7.0 % Basophils (%) (Auto) 0.9 0.0-2.0 % Neutrophils # (Auto) 3.4 1.6-8.6 10 ^3/uL Lymphocytes # (Auto) 2.3 0.4-5.4 10 ^3/uL Monocytes # (Auto) 0.7 0-1.3 10 ^3/uL Eosinophils # (Auto) 0.4 0-0.8 10 ^3/uL Basophils # (Auto) 0.1 0-0.2 10 ^3/uL Nucleated Red Blood Cells 0.0 % Sodium Level 140 136-145 mmol/L Potassium Level 4.2 3.5-5.1 mmol/L Chloride Level 106 98-107 mmol/L Carbon Dioxide Level 26 20-31 mmol/L Anion Gap 8 5-15 Blood Urea Nitrogen 23 9-23 mg/dL Creatinine 0.80 0.550-1.02 mg/dL Glomerular Filtration Rate Calc 72 >90 mL/min BUN/Creatinine Ratio 28.8 H 10.0-20.0 Serum Glucose 95 74-106 mg/dL Lactic Acid Level 1.3 0.4-2.0 mmol/L Calcium Level 9.9 8.7-10.4 mg/dL Total Bilirubin 0.4 0.2-1.0 mg/dL Aspartate Amino Transferase (AST) 22 13-40 U/L Alanine Aminotransferase (ALT) 18 7-40 U/L Alkaline Phosphatase 94 46-116 U/L B-Type Natriuretic Peptide 300.73 0-100 pg/mL Total Protein 8.1 5.7-8.2 g/dL Albumin 4.5 3.2-4.8 g/dL Urine Color Colorless Yellow Urine Clarity Clear Clear Urine pH 5.0 5.0-9.0 Urine Specific [place] 1.006 1.001-1.035 Urine Protein Negative Negative Urine Ketones Negative Negative Urine Blood Negative Negative /uL Urine Nitrite Negative Negative Urine Bilirubin Negative Negative Urine Urobilinogen Normal Negative mg/dL Urine Leukocyte Esterase 1+ Negative /uL Urine RBC None seen 0 - 4 /hpf Urine Microscopic WBC 10 H 0-5 /HPF Urine Squamous Epithelial Cells Few <5 /hpf Urine Bacteria Few H None Seen /hpf Urine Glucose Normal Normal mg/dL Assessment/Plan Assessment/Plan Chest pain,? ACS Aortic stenosis s/p TAVR History of AFib, sick sinus syndrome, s/p pacemaker Hypertension Dyslipidemia EKGs shows paced rhythm with RBBB pattern Serial trop I is within normal limits Echo from 07/03/2024 shows EF 60-65% with no gross wall motion abnormalities Cardiolite stress test and nuclear stress test from 09/26/2021 shows no stress- induced ischemia with the LVEF 77% IV diuretic Continue home meds Breathing treatment Guaifenesin for cough Complicated UTI UA shows UTI picture Urine culture Empiric antibiotic, Rocephin DIET: Cardiac the DVT PROPHYLAXIS: Patient is on rivaroxaban GI PROPHYLAXIS:: Protonix CODE STATUS: Goal of care discussed for more than 18 minutes, full code DISPOSITION: Telemetry Patient's status and plan discussed with the patient. Case discussed with Dr. Huber. Plan discussed with: Patient, Other (RN) Date of Service: Oct 03, 2024 Billing Provider: MILLA HUBER MD Common Visit Codes: [id number] INP/OBS CARE (HIGH) Secondary Visit Codes: [id number] CARE PLAN 30 MINUTES NEO TEMPLE Oct 03, 2024 23:56 MILLA HUBER MD Oct 09, 2024 12:16
[2024-10-04] VITALS (17 sets, daily range): BP systolic 115–160; BP diastolic 75–108; PULSE 62–87; RESP 16–20; TEMP 97.2–98.1; O2SAT 95–100
[2024-10-04] MEDS ORDERED: NITROGLYCERIN 0.4 MG SL TAB SL PRN
[2024-10-04] MEDS ORDERED: HYDROcodone-ACET 5/325MG TAB PO PRN (00:15)
[2024-10-04] MEDS: cefTRIAXone 1GM/50ML D5W 50 ML IV ONE ×2 (00:48→10:01)
[2024-10-04 01:18] LABS: Rapid Influenza A Negative (Negative); Rapid Influenza B Negative (Negative)
[2024-10-04 01:19] LABS: COVID19 ANTIGEN SOFIA FIA NEGATIVE (NEGATIVE)
[2024-10-04] MEDS: FUROSEMIDE 20 MG/2 ML VIAL IV ONE (01:37)
[2024-10-04] MEDS: guaiFENesin 200 MG/10 ML UD GT ONE (01:38)
[2024-10-04] MEDS: PANTOPRAZOLE 40 MG/10 ML VIAL INJ IV ONE (01:38)
[2024-10-04] MEDS: AZITHROMYCIN 500MG/ 250ML 250 ML IV ONE (02:57)
[2024-10-04] MEDS: CARVEDILOL 12.5 MG TAB PO ONE (03:00)
[2024-10-04] MEDS: guaiFENesin 200 MG/10 ML UD GT PRN (03:12)
[2024-10-04] MEDS: FUROSEMIDE 20 MG/2 ML VIAL IV SCH (06:19)
[2024-10-04] MEDS: NITROGLYCERIN 0.4 MG SL TAB SL ONE (06:27)
[2024-10-04] MEDS: LEVALBUTEROL HCL 1.25 MG/3 ML NEB NEB SCH (06:34)
[2024-10-04] MEDS: IPRATROPIUM BROM 0.5 MG/2.5ML INH SOL NEB SCH (06:34)
[2024-10-04 07:05] LABS: Amphetamine Screen, Urine Neg (NEGATIVE); Barbiturate Scree,Urine Neg (NEGATIVE); Benzodiazephine Screen, Urine Neg (NEGATIVE); Cannabinoid Screen, Urine Neg (NEGATIVE); Cocaine Screen, Urine Neg (NEGATIVE); Opiate Scree,Urine Neg (NEGATIVE); Phencyclidine Screen, Urine Neg (NEGATIVE)
[2024-10-04] MEDS: PANTOPRAZOLE 40 MG/10 ML VIAL INJ IV SCH (09:31)
[2024-10-04] MEDS: CARVEDILOL 12.5 MG TAB PO SCH (09:33)
--- NOTE | 2024-10-04 10:56 | ECG ---
[facility] Test Date: 2024-10-03 Test Time: 18:17:58 Pat Name: HAROON ALBARADO Department: ER Room: 0247T A Gender: F [employer] Specialist: SUE : 1940 Requested By: VITALIY CARTER Order Number: [id number] Reading MD: Bernard Isaac Measurements Intervals Mcdonald Rate: 73 P: 0 DC: 179 QRS: -75 QRSD: 130 T: 99 QT: 421 QTc: 464 Interpretive Statements Ventricular-paced rhythm No further analysis attempted due to paced rhythm Electronically Signed On 10-05-2024 18:43:03 PDT by Bernard Isaac Please click the below link to view image of tracing.
--- NOTE | 2024-10-04 12:28 | DVHPNRES ---
Progress Note Date Seen: Oct 04, 2024 Resident Creating Document: AMERICA JONES RESIDENT Medical Necessity Reason Pt with a Central, PICC or Fol: No Subjective Review of Systems Patient is a 84-year-old female with past medical history of aortic stenosis status post TAVR, atrial fibrillation, HFpEF EF 60%, hypertension, dyslipidemia, dementia, sick sinus syndrome s/p pacemaker, came in due to cough since 3 days. She also reports chest discomfort during cough, generalized weakness and bilateral lower limb swelling. She denies fever, nausea, vomiting, any recent sick contacts or any bowel and bladder habit changes. Patient was seen and examined on the bedside. She is alert oriented x3 and on room air. Complain of generalized weakness, cough and bilateral leg pain and swelling. No other active complaint. Constitutional: No: Fever, Chills, Sweats, Weakness, Malaise, Other Eyes: No: Pain, Vision change, Conjunctivae inflammation, Eyelid inflammation, Other, Redness ENT: No: Ear pain, Ear discharge, Nose pain, Nose discharge, Nose congestion, Mouth pain, Mouth swelling, Throat pain, Throat swelling, Other Respiratory: Shortness of breath, improving No: Cough, Dry,Wheezing, Hemoptysis, Pleuritic Pain, Sputum, Wheezing, Other Cardiovascular: No: Chest Pain, Palpitations, Orthopnea, Paroxysmal Noc. Dyspnea, Edema, Lt Headedness, Other Gastrointestinal: No: Nausea, Vomiting, Abdominal Pain, Diarrhea, Constipation, Melena, Hematochezia, Other Musculoskeletal: No: other, neck pain, shoulder pain, arm pain, back pain, hand pain, leg pain, foot pain Neurological:; No: Weakness, Numbness, Incoordination, Change in speech, Confusion, Seizures Objective vital signs Vital Sign Date Time Temp Pulse Resp B/P (MAP) Pulse Ox O2 Delivery O2 Flow Rate FiO2 10/04/24 10:33 66 10/04/24 09:59 96 Room Air* 0 21 10/04/24 09:33 124/77 10/04/24 09:00 97.2 16 97.2 Total Intake and Output 10/03/24 10/03/24 10/04/24 15:00 23:00 07:00 Intake Total 300 ml Balance 300 ml medications Current Medications Medications Dose Ordered Sig/Clay Route Start Time Stop Time Status Last Admin Dose Admin Nitroglycerin 0.4 mg Q5MINP PRN SL 10/04/24 00:00 Rivaroxaban 15 mg QPM PO 10/04/24 18:00 Ipratropium [place] 0.5 mg Q6HWA NEB 10/04/24 06:00 10/04/24 06:34 0.5 MG Levalbuterol HCl 0.625 mg Q6HR NEB 10/04/24 06:00 10/04/24 06:34 0.625 MG Pantoprazole Sodium 40 mg DAILY IV 10/04/24 10:00 10/04/24 09:31 40 MG Acetaminophen/ Hydrocodone Bitart 1 tab Q4HPRN PRN PO 10/04/24 00:15 Azithromycin 250 ml @ 125 mls/hr DAILY@2100 IV 10/04/24 21:00 Carvedilol 25 mg Q12HR PO 10/04/24 10:00 10/04/24 09:33 25 MG Guaifenesin 200 mg Q6HP PRN GT 10/04/24 00:30 10/04/24 03:12 200 MG Furosemide 20 mg BIDD IV 10/04/24 06:00 10/04/24 06:19 20 MG Ceftriaxone Sodium 50 ml @ 100 mls/hr DAILY@09 IV 10/05/24 09:00 Examination Physical examination: General Appearance: Alert, Oriented X3, Cooperative, No acute distress HEENT: Atraumatic, PERRLA, EOMI, Mucous membrane moist/pink Respiratory: Clear to auscultation, Normal air movement Cardiovascular: Regular rate, Normal S1, Normal S2, No murmurs, no chest wall tenderness Abdominal: Normal bowel sounds, Soft, No tenderness, No hepatospenomegaly, No masses Extremities: No clubbing, No cyanosis, No edema, Normal pulses, No tenderness/swelling Skin: No rashes, No breakdown, No significant lesion Neuro: Normal gait, Normal speech, Strength at 5/5 X4 ext, Normal tone, Sensation intact, Cranial nerves 3-12 NL, Reflexes 2+ Psych/Mental Status: Mental status NL, Mood NL laboratory and microbiology Laboratory Tests 10/03/24 18:24 Test 10/03/24 18:24 Range/Units Serum Glucose 95 74-106 mg/dL Labs and/or images reviewed: Labs reviewed by me, Image(s) reviewed by me Problem List/Assessment/Plan Problem List/Assessment/Plan Assessment/Plan Chest pain rule out ACS Aortic stenosis s/p TAVR History of AFib, sick sinus syndrome, s/p pacemaker Hypertension Dyslipidemia EKGs shows paced rhythm with RBBB pattern Serial trop I is within normal limits Echo from 07/03/2024 shows EF 60-65% with no gross wall motion abnormalities Cardiolite stress test and nuclear stress test from 09/26/2021 shows no stress- induced ischemia with the LVEF 77% IV diuretic Continue home meds Breathing treatment Guaifenesin for cough Complicated UTI UA shows UTI picture Urine culture Empiric antibiotic, Rocephin DIET: Cardiac the DVT PROPHYLAXIS: Patient is on rivaroxaban GI PROPHYLAXIS:: Protonix CODE STATUS: Goal of care discussed for more than 18 minutes, full code DISPOSITION: Telemetry Plan discussed with: Patient, Other My Orders My Orders Orders - AMERICA JONES Procedure Category Date Status Time Ceftriaxone 1gm/50ml PHA 10/05/24 In Process D5w (Rocephin) 09:00 Orthostatic Vital ORDERS 10/04/24 Transmitted Signs 12:23 Date of Service: Oct 04, 2024 Billing Provider: MARK BOSS MD Common Visit Codes: [id number] INP/OBS CARE(HIGH) AMERICA JONES Oct 04, 2024 12:28 MARK BOSS MD Oct 07, 2024 22:26
[2024-10-04] MEDS: RIVAROXABAN 15 MG TAB PO SCH (17:41)
[2024-10-04] MEDS: AZITHROMYCIN 500MG/ 250ML 250 ML IV SCH (21:18)
[2024-10-05] VITALS (16 sets, daily range): BP systolic 103–134; BP diastolic 69–87; PULSE 70–96; RESP 16–20; TEMP 97.5–98.1; O2SAT 94–100
[2024-10-05 06:46] LABS: Basophils # (auto) 0.1 10 ^3/uL (0-0.2); Basophils % (auto) 0.9 % (0.0-2.0); Eosinophils # (auto) 0.3 10 ^3/uL (0-0.8); Eosinophils % (auto) 4.7 % (0.0-7.0); Hematocrit 44.5 % (36.0-46.0); Hemoglobin 15.4 g/dL (12.2-16.2); Lymphocytes # (auto) 2.8 10 ^3/uL (0.4-5.4); Lymphocytes % (auto) 40.1 % (10.0-50.0); Mean Corpuscular Hemoglobin 33.1 pg (28.0-32.0); Mean Corpuscular Hgb Conc. 34.5 g/dL (32.0-36.0); Mean Corpuscular Volume 95.8 fL (80.0-100.0); Monocytes % (auto) 13.4 % (0.0-12.0); Neutrophils # (auto) 2.9 10 ^3/uL (1.6-8.6); Neutrophils % (auto) 40.9 % (37.0-80.0); Nucleated Red Blood Cells % 0.3 %; Platelet Count (auto) 184 10^3/uL (140-450); Red Blood Cells 4.64 10^6/uL (4.0-5.20); Red Cell Distribution Width 14.1 % (11.8-14.3); White Blood Cell 7.1 10^3/uL (4.4-10.8)
[2024-10-05 06:53] LABS: Alanine Aminotransferase 23 U/L (7-40); Albumin 4.3 g/dL (3.2-4.8); Alkaline Phosphatase 71 U/L (46-116); Anion Gap 9 (5-15); Aspartate Aminotransferase 23 U/L (13-40); BUN/Creatinine Ratio 19.3 (10.0-20.0); Blood Urea Nitrogen 17 mg/dL (9-23); Calcium 9.8 mg/dL (8.7-10.4); Carbon Dioxide 27 mmol/L (20-31); Chloride 104 mmol/L (98-107); Glucose 92 mg/dL (74-106); Potassium 3.7 mmol/L (3.5-5.1); Sodium 140 mmol/L (136-145); Total Protein 7.9 g/dL (5.7-8.2)
[2024-10-05 06:54] LABS: Bilirubin, Total 0.6 mg/dL (0.2-1.0)
[2024-10-05 07:15] LABS: INR 1.31 (0.9-1.15); Partial Thromboplastin Time 33.8 SEC (24.5-34.5); Prothrombin Time 13.5 sec (9.3-11.8)
[2024-10-05] MEDS: cefTRIAXone 1GM/50ML D5W 50 ML IV SCH (09:06)
--- NOTE | 2024-10-05 16:29 | DVHDS2 ---
Discharge Summary Date of Admission Oct 03, 2024 at 23:55 Date of Discharge: Oct 05, 2024 Labs/Diagnostic Data: Laboratory Results Test 10/05/24 06:10 10/04/24 06:20 10/04/24 00:32 10/04/24 00:31 White Blood Count 7.1 10^3/uL (4.4-10.8) Red Blood Count 4.64 10^6/uL (4.0-5.20) Hemoglobin 15.4 g/dL (12.2-16.2) Hematocrit 44.5 % (36.0-46.0) Mean Corpuscular Volume 95.8 fL (80.0-100.0) Mean Corpuscular Hemoglobin 33.1 pg (28.0-32.0) Mean Corpuscular Hemoglobin Concent 34.5 g/dL (32.0-36.0) Red Cell Distribution Width 14.1 % (11.8-14.3) Platelet Count 184 10^3/uL (140-450) Mean Platelet Volume 7.6 fL (6.9-10.8) Neutrophils (%) (Auto) 40.9 % (37.0-80.0) Lymphocytes (%) (Auto) 40.1 % (10.0-50.0) Monocytes (%) (Auto) 13.4 % (0.0-12.0) Eosinophils (%) (Auto) 4.7 % (0.0-7.0) Basophils (%) (Auto) 0.9 % (0.0-2.0) Neutrophils # (Auto) 2.9 10 ^3/uL (1.6-8.6) Lymphocytes # (Auto) 2.8 10 ^3/uL (0.4-5.4) Monocytes # (Auto) 1.0 10 ^3/uL (0-1.3) Eosinophils # (Auto) 0.3 10 ^3/uL (0-0.8) Basophils # (Auto) 0.1 10 ^3/uL (0-0.2) Nucleated Red Blood Cells 0.3 % Prothrombin Time 13.5 sec (9.3-11.8) Prothrombin Time INR 1.31 (0.9-1.15) Activated Partial Thromboplast Time 33.8 SEC (24.5-34.5) Sodium Level 140 mmol/L (136-145) Potassium Level 3.7 mmol/L (3.5-5.1) Chloride Level 104 mmol/L (98-107) Carbon Dioxide Level 27 mmol/L (20-31) Anion Gap 9 (5-15) Blood Urea Nitrogen 17 mg/dL (9-23) Creatinine 0.88 mg/dL (0.550-1.02) Glomerular Filtration Rate Calc 64 mL/min (>90) BUN/Creatinine Ratio 19.3 (10.0-20.0) Serum Glucose 92 mg/dL (74-106) Calcium Level 9.8 mg/dL (8.7-10.4) Total Bilirubin 0.6 mg/dL (0.2-1.0) Aspartate Amino Transferase (AST) 23 U/L (13-40) Alanine Aminotransferase (ALT) 23 U/L (7-40) Alkaline Phosphatase 71 U/L (46-116) Total Protein 7.9 g/dL (5.7-8.2) Albumin 4.3 g/dL (3.2-4.8) Urine Opiates Screen Neg (NEGATIVE) Urine Fentanyl Screen Neg (NEGATIVE) Urine Barbiturates Screen Neg (NEGATIVE) Urine Phencyclidine Screen Neg (NEGATIVE) Urine Amphetamines Screen Neg (NEGATIVE) Urine Benzodiazepines Screen Neg (NEGATIVE) Urine Cocaine Screen Neg (NEGATIVE) Urine Cannabinoids Screen Neg (NEGATIVE) Influenza Type A Antigen Negative (Negative) Influenza Type B Antigen Negative (Negative) SARS-CoV-2 Antigen (Rapid) Negative (NEGATIVE) D-Dimer, Quantitative 0.60 mg/L FEU (0.0-0.49) Magnesium Level 2.3 mg/dL (1.6-2.6) B-Type Natriuretic Peptide 259.97 pg/mL (0-100) Test 10/03/24 21:24 10/03/24 18:24 10/03/24 18:12 Troponin I High Sensitivity 3 ng/L (</=34) Lactic Acid Level 1.3 mmol/L (0.4-2.0) Urine Color Colorless (Yellow) Urine Clarity Clear (Clear) Urine pH 5.0 (5.0-9.0) Urine Specific [place] 1.006 (1.001-1.035) Urine Protein Negative (Negative) Urine Ketones Negative (Negative) Urine Blood Negative /uL (Negative) Urine Nitrite Negative (Negative) Urine Bilirubin Negative (Negative) Urine Urobilinogen Normal mg/dL (Negative) Urine Leukocyte Esterase 1+ /uL (Negative) Urine RBC None seen /hpf (0 - 4) Urine Microscopic WBC 10 /HPF (0-5) Urine Squamous Epithelial Cells Few /hpf (<5) Urine Bacteria Few /hpf (None Seen) Urine Glucose Normal mg/dL (Normal) Other Laboratory Tests 10/05/24 06:10 Brief Hx & Hospital Course: 84-year-old female with past medical history of aortic stenosis status post TAVR, atrial fibrillation, HFpEF EF 60%, hypertension, dyslipidemia, dementia, sick sinus syndrome s/p pacemaker, came in due to cough since 3 days. She also reports chest discomfort during cough, generalized weakness and bilateral lower limb swelling. Patient was found to have mild UTI which was treated with the IV antibiotics. Patient is currently stable to be discharged with close follow up as an outpatient with the PCP. Condition at Discharge: Stable Final Diagnosis/Problems List Chest pain DE ruled out Aortic stenosis s/p TAVR History of AFib, sick sinus syndrome, s/p pacemaker Hypertension Dyslipidemia UTI Discharge Disposition: Home SNF Discharge Will this Physician continue t: No Discharge Statement: "Patient was advised to return to the ER or call 911 if any headaches, dizziness, shortness of breath, chest pain, abdominal pain, bleeding, fevers, or worsening of medical condition. Patient was counseled about treatment plan, medications, possible side effects, patientverbalized understanding. All questions were answered to the best of my ability. This discharge took greater then 30 minutes in planning, reviewing documentation, counseling the patient, and discussing with other team members." ASSESSMENT ASSESSMENT Assessment Date of Service: Oct 05, 2024 Billing Provider: GIACOMO DEE MD Common Visit Codes: [id number]-AWX/OBS DISCH DAY >30min GIACOMO DEE MD Oct 05, 2024 16:29
[2024-10-05] MEDS ORDERED: CEFD300C2 PO ×2 (16:30→16:31)
== END 2024-10-05 20:11 | disposition home or self-care (01) | DRG 291 ==
LOC: ER 17:36 → OVERFLOW 23:55 → TELE-EAST 10-04 02:35
PROVIDERS: ADMIT Internal Medicine; ATTEND Internal Medicine
DX: I11.0 Hypertensive heart disease with heart failure (principal); I50.33 Acute on chronic diastolic (congestive) heart failure; N39.0 Urinary tract infection, site not specified; R07.89 Other chest pain; I48.91 Unspecified atrial fibrillation; I49.5 Sick sinus syndrome; Z20.822 Contact with and (suspected) exposure to COVID-19; E78.5 Hyperlipidemia, unspecified; F03.90 Unspecified dementia, unspecified severity, without behavioral disturbance, psychotic disturbance, mood disturbance, and anxiety; J45.909 Unspecified asthma, uncomplicated; Z79.01 Long term (current) use of anticoagulants; Z95.2 Presence of prosthetic heart valve; Z79.899 Other long term (current) drug therapy; Z95.0 Presence of cardiac pacemaker
CPT/HCPCS: 36415; 71045; 80053; 80307; 81001; 83605; 83735; 83880; 84484; 85025; 85379; 85610; 85730; 87081; 87086; 87426; 87804; 93005; 94640; G0378; J2470

== ENCOUNTER 2025-04-25 08:39 | Inpatient (IN) | payer MEDICARE, MEDICAID ==
[~2025-04-25] VITALS: Ht 152.4 cm; Wt 84.0 kg
[~2025-04-25 08:39] MED LIST changes: +CEFD300C2 PO; -RIV15T PO
--- NOTE | 2025-04-25 09:32 | ED.PDOC ---
History of Present Illness HPI Comments Ms. Villanueva is an 84 year old female with prior medical history of aortic stenosis status post TAVR, AFib on Xarelto, HFpEF, hypertension, dyslipidemia, sick sinus syndrome status post pacemaker placement, bilateral hip fracture s/p bilateral replacement, who presents BIBA due to a mechanical fall. Patient states she is walker dependent and woke up this morning at 5:00 a.m. to go to the restroom when she urinated on herself. She subsequently tripped on her walker and fell side towards her right side and was unable to get up until her daughter helped her up approximately 1 hour later. She states she cushioned the blow with her right arm, but hit her right side and hip once she fell. Refers instant sharp pain in her right chest described as constant sharp, non-radiating, 8/10 intensity, aggravated by moving, with no relieving factors. Additionally refers sharp right hip pain, non-radiating, 6/10 intensity, aggravated by moving her right leg, without relieving factors. She denies hitting her head, loss of conciousness, dizziness, headache, nausea, vomiting, bleeding, and palpitations. She was brought to the emergency department for further evaluation. On initial evaluation, patient was AOx4, vitals were stable, and mainly complained of right rib and hip pain. Chief Complaint: Lower Extremity Time Seen by MD: 09:00 Primary Care Provider: MARGOT Allergies: Coded Allergies: Morphine (Verified Allergy, Unknown, 12/28/22) Home Meds Active Scripts Cefdinir (Cefdinir) 300 Mg Cap, 1 CAP PO BID for 3 Days, #6 CAP Prov:GIACOMO DEE MD 10/05/24 Reported Medications Albuterol Sulfate (Albuterol Sulfate Hfa) 108 Mcg/Act Aer, 1 PUFF PO Q12HR PRN PRN for ACUTE BRONCHITIS DUE TO STREP for 60 Days, #7 10/04/24 Irbesartan (IRBESARTAN) 300 Mg Tab, 1 TAB PO DAILY for 90 Days, #10/04/24 Furosemide (Furosemide) 20 Mg Tab, 1 TAB PO DAILY for 90 Days, #90 10/04/24 Omeprazole (Omeprazole Dr) 20 Mg Cap, 1 CAP PO DAILY for 90 Days, #90 10/04/24 Montelukast Sodium (MONTELUKAST SODIUM) 10 Mg Tab, 1 TAB PO DAILY for 30 Days, #30 10/04/24 Rivaroxaban (Xarelto Tablet) 20 Mg Tb, 1 TAB PO DAILY for 30 Days, #30 10/04/24 Hydralazine Hcl (Hydralazine Hcl) 50 Mg Tab, 1 TAB PO TID for 30 Days, #90 10/04/24 Isosorbide Mononitrate (Isosorbide Mononitrate Er) 30 Mg Tab, 1 TAB PO DAILY for 30 Days, #30 10/04/24 Diltiazem Hcl (DILTIAZEM HCL ER) 240 Mg Cap, 1 CAP PO DAILY 07/04/24 Bisacodyl (Dulcolax) 10 Mg Sup, 10 MG RE DAILY PRN for FOR CONSTIPATION, SUPP 04/26/24 Magnesium Hydroxide (Milk Of Magnesia) 400 Mg/5 Ml Bernie, 30 ML PO DAILY PRN for FOR CONSTIPATION, ML 04/26/24 Acetaminophen (Apap) 325 Mg Tab, 2 TAB PO Q4HPRN PRN for mild pain 1-3, TAB 04/26/24 Pantoprazole Sodium Sesquihydr (Pantoprazole Sodium) 40 Mg Tab, 1 TAB PO BID 04/26/24 Oxybutynin Chloride (Oxybutynin Chloride) 5 Mg Tab, 10 MG PO DAILY 04/26/24 Docusate Sodium (Colace) 100 Mg Cap, 1 CAP PO BID PRN for FOR CONSTIPATION, #30 CAP 06/22/21 Gabapentin (Gabapentin) 300 Mg Cap, 300 MG PO DAILY for 30 Days, MG 06/22/21 Donepezil Hydrochloride (DONEPEZIL HCL) 10 Mg Tab, 10 MG PO DAILY for 30 Days, MG 06/22/21 Carvedilol (Carvedilol) 25 Mg Tab, 25 MG PO Q12HR for 30 Days, MG 06/22/21 Information Source: Patient, Emergency Med Personnel Severity: Mild Timing: Hours Duration: Since onset Past Medical History PAST MEDICAL HISTORY: AFIB, Arthritis, CHF, Dementia, GERD, HTN Surgical History: Pacemaker Surgical History (Other): Bilateral hip replacement HYDROTEL OPERATOR History: No Pertinent HYDROTEL OPERATOR History Family History Family History: Reviewed,noncontributory to illness Social History Smoker: Non-Smoker Alcohol: Denies ETOH Use Drugs: Denies Drug Use Lives In: Home Constitutional: denies: chills, diaphoresis, fatigue, fever, malaise, sweats, weakness EENTM: denies: blurred vision, double vision, ear pain, eye pain, mouth pain, mouth swelling, nasal discharge, nose bleeding, nose congestion, nose pain, tearing, throat pain, throat swelling Respiratory: denies: cough, hemoptysis, orthopnea, shortness of breath Cardiovascular: reports: chest pain; denies: dizzy spells, diaphoresis, Dyspnea on exertion, edema, lightheadedness, palpitations, syncope Gastrointestinal: denies: abdomen distended, abdominal pain, constipated, diarrhea, dysphagia, difficulty swallowing, hematemesis, melena, nausea, poor appetite, poor fluid intake, vomiting Genitourinary: reports: incontinence; denies: burning, dyspareunia, dysuria, flank pain, frequency, hematuria, pain, urgency Neurological: denies: dizziness, fainting, headache, numbness, paresthesia, right sided numbness, right sided weakness, seizure, speech problems, tingling, tremors, weakness Musculoskeletal: reports: joint pain (Right hip pain ), others (Right sided chest wall pain ); denies: back pain, muscle pain, neck pain Integumetry: reports: bruises, wounds; denies: change in color, dryness, laceration, lesions, lumps, rash Hematologic/Lymphatic: reports: easy bleeding (Due to medication ), easy bruising (Due to medication ); denies: anemia, blood clots, swollen glands Physical Exam General Appearance: Mild Distress HEENT: Normal ENT Inspection, PERRL/EOMI, Pharynx Normal, Other (No bruising or lacerations observed on scalp and face, no injuries noted on palpation, no pain on palpation) Neck: Full Range of Motion, Non-Tender, Normal Inspection Respiratory: Lungs Clear, No Accessory Muscle Use, No Respiratory Distress, Normal Breath Sounds, Other (No bruising noted on observation, bilateral chest expansion observed, pain on palpation of right chest wall ) Cardiovascular: Irregular, No Edema, No JVD, No Murmur, Normal Peripheral Pulses, Other (Presence of pacemaker in right pectoral region ) Breast Exam: Deferred Gastrointestinal: Non Tender, No Pulsatile Mass, Normal Bowel Sounds Genitalia: Deferred Pelvic: Deferred Rectal: Deferred Extremities: Decreased range of motion (Of right hip ), Normal capillary refill, No pedal edema, Tender (Tenderness on palpation of right hip and on passive and active movements ), Other (Bruising noted along right forearm, full range of motion of right elbow and wrist, small laceration in right elbow aprox .5 cm x .5 cm without signs of active bleeding, no pain on palpation of right forearm or elbow, No bruising noted on right hip or thigh ) Neurologic: No Motor Deficits, Normal Affect, Normal Mood, Other (AOx4) Cerebellar Function: Normal Reflexes: NOT DONE Skin: Bruises (Bruising noted along right forearm), Wounds (as described above) Lymphatic: No Adenopathy Was a procedure done? Was a procedure done?: No EKG EKG : Pulse Rate (adult): 63 Cardiac Rhythm: Afib Differential Dx Considerations may include: Mechanical fall, syncope, rib fracture, chest wall contusion, muscle strain, hip fracture, hip contusion, abrasion X-Ray, Labs, Meds, VS Vital Signs Date Time Temp Pulse Resp B/P (MAP) Pulse Ox O2 Delivery O2 Flow Rate FiO2 04/25/25 10:32 63 04/25/25 10:30 63 04/25/25 08:41 98.4 69 18 157/98 99 98.4 Lab Test 04/25/25 09:32 Range/Units White Blood Count 7.7 4.4-10.8 10^3/uL Red Blood Count 4.23 4.0-5.20 10^6/uL Hemoglobin 12.9 12.2-16.2 g/dL Hematocrit 38.9 36.0-46.0 % Mean Corpuscular Volume 92.1 80.0-100.0 fL Mean Corpuscular Hemoglobin 30.5 28.0-32.0 pg Mean Corpuscular Hemoglobin Concent 33.2 32.0-36.0 g/dL Red Cell Distribution Width 16.0 H 11.8-14.3 % Platelet Count 141 140-450 10^3/uL Mean Platelet Volume 7.5 6.9-10.8 fL Neutrophils (%) (Auto) 67.5 37.0-80.0 % Lymphocytes (%) (Auto) 18.8 10.0-50.0 % Monocytes (%) (Auto) 9.2 0.0-12.0 % Eosinophils (%) (Auto) 3.7 0.0-7.0 % Basophils (%) (Auto) 0.8 0.0-2.0 % Neutrophils # (Auto) 5.2 1.6-8.6 10 ^3/uL Lymphocytes # (Auto) 1.4 0.4-5.4 10 ^3/uL Monocytes # (Auto) 0.7 0-1.3 10 ^3/uL Eosinophils # (Auto) 0.3 0-0.8 10 ^3/uL Basophils # (Auto) 0.1 0-0.2 10 ^3/uL Nucleated Red Blood Cells 0.0 % Sodium Level 142 136-145 mmol/L Potassium Level 4.0 3.5-5.1 mmol/L Chloride Level 106 98-107 mmol/L Carbon Dioxide Level 27 20-31 mmol/L Anion Gap 9 5-15 Blood Urea Nitrogen 14 9-23 mg/dL Creatinine 0.85 0.550-1.02 mg/dL Glomerular Filtration Rate Calc 67 >90 mL/min BUN/Creatinine Ratio 16.5 10.0-20.0 Serum Glucose 99 74-106 mg/dL Calcium Level 9.0 8.7-10.4 mg/dL Troponin I High Sensitivity Pending Time of 1ST Reevaluation: 10:15 Reevaluation 1ST: Unchanged Time of 2ND Reevaluation: 11:00 Reevaluation 2ND: Unchanged Patient Education/Counseling: Diagnosis, Treatment Family Education/Counseling: No Family Present SEPSIS Sepsis Screen Physician Orders R Rib Xray (04/25/25 09:12) R Hip Complete Xray (04/25/25 09:12) Electrocardigram (04/25/25 09:12) Urinalysis (04/25/25 09:12) R Elbow 2v Xray (04/25/25 09:12) Troponin-I Hs (04/25/25 10:32) * Orthopedic Consult (04/25/25 10:57) Vital Signs Date Time Temp Pulse Resp B/P (MAP) Pulse Ox O2 Delivery O2 Flow Rate FiO2 04/25/25 10:32 63 04/25/25 10:30 63 04/25/25 08:41 98.4 69 18 157/98 99 98.4 Laboratory Tests Test 04/25/25 09:32 White Blood Count 7.7 10^3/uL (4.4-10.8) Departure 1 Departure Time of Disposition: 10:25 Impression: Primary Impression: Fall with injury Additional Impression: Pelvic fracture Disposition: 30 STILL A PATIENT Admit to: Tele Condition: Stable Additional Instructions: Patient resented via ambulance due to mechanical fall at home Main complaints of right-sided chest pain and hip pain On evaluation, vitals were stable, patient is AOx4, with no apparent signs of deformity or active bleeding, pain on palpation of chest wall and right hip, decreased range of motion of right hip on passive and active movements. CBC and BMP without alterations EKG shows AFib, of which the patient has prior history, currrently on Xarelto Right Rib Xray shows no evidence of fracture Right elbow Xray shows no evidence of fracture Right hip xray shows non-displaced superior pelvic ramus fracture, orthopedics consult has been placed She will be admitted for further work up and management. Critical Care Note Critical Care Time?: No Stability Stability form required: ARELI Hernandez RESIDENT Apr 25, 2025 09:32
[2025-04-25 09:40] LABS: Hematocrit 38.9 % (36.0-46.0); Hemoglobin 12.9 g/dL (12.2-16.2); Mean Corpuscular Hemoglobin 30.5 pg (28.0-32.0); Mean Corpuscular Volume 92.1 fL (80.0-100.0); Nucleated Red Blood Cells % 0.0 %
[2025-04-25 09:53] LABS: Chloride 106 mmol/L (98-107); Potassium 4.0 mmol/L (3.5-5.1); Sodium 142 mmol/L (136-145)
[2025-04-25 09:54] LABS: Anion Gap 9 (5-15); Calcium 9.0 mg/dL (8.7-10.4); Carbon Dioxide 27 mmol/L (20-31)
[2025-04-25 09:59] LABS: BUN/Creatinine Ratio 16.5 (10.0-20.0); Blood Urea Nitrogen 14 mg/dL (9-23); Glucose 99 mg/dL (74-106)
--- NOTE | 2025-04-25 10:45 | DVH ---
Right HIP RADIOGRAPH. CLINICAL INDICATION: right hip pain post fall TECHNIQUE: 4 views of the right hip were obtained. FINDINGS: Left total hip arthroplasty. Nondisplaced right superior pubic ramus fracture. Intramedull rachelle tom in the right femur. IMPRESSION: Nondisplaced right superior pubic ramus fracture.
--- NOTE | 2025-04-25 10:46 | DVH ---
EXAMINATION: XY R RIB XRAY INDICATION: Right side chest pain post fall COMPARISON: XY CHEST PORTABLE on DOS: 10/03/24, XY CHEST PORTABLE on DOS: 07/01/24, XY CHEST PORTABLE o n DOS: 04/25/24, XY CHEST PORTABLE on DOS: 04/07/24, XY CHEST PORTABLE on DOS: 12/28/23 TECHNIQUE: Frontal view of the chest and 4 views of the right ribs history FINDINGS: No focal consolidation, pleural effusion or significant pneumothorax. Normal cardiomediastinal silhou ette. No displaced right rib fracture. IMPRESSION: No acute cardiopulmonary disease. No displaced right rib fracture.
--- NOTE | 2025-04-25 10:47 | DVH ---
EXAM: XY R ELBOW 2V XRAY CLINICAL INDICATION: Fall with trauma to right elbow TECHNIQUE: XY R ELBOW 2V XRAY Comparison: None FINDINGS/IMPRESSION: There is no evidence of acute fracture or dislocation. The visualized joint space is well maintained. The alignment is anatomical. There is no radiopaque foreign body.
[2025-04-25] MEDS: KETOROLAC TROMETH 30 MG/ML 1ML VIAL IV ONE (14:47)
--- NOTE | 2025-04-25 15:40 | ECG ---
[facility] Test Date: 2025-04-25 Test Time: 10:26:20 Pat Name: HAROON ALBARADO Department: [facility] ED Patient ID: [facility]-[id number] Room: 0248 Gender: F Programmer Analyst: ADELITA : 1940 Requested By: ARELI LU Order Number: [id number] Reading MD: Bernard Isaac Measurements Intervals [place] Rate: 63 P: 0 CA: 0 QRS: -67 QRSD: 136 T: 111 QT: 468 QTc: 480 Interpretive Statements Afib/flutter and ventricular-paced rhythm No further analysis attempted due to paced rhythm Electronically Signed On 04-29-2025 14:25:06 PDT by Bernard Isaac Please click the below link to view image of tracing.
[2025-04-25 15:54] LABS: Urine Protein, UAD Negative (Negative)
[2025-04-25 16:33] VITALS: PULSE 67; RESP 18; O2SAT 98
[2025-04-25] MEDS: ONDANSETRON HCL 4 MG/2 ML VIAL IV ONE (16:54)
[2025-04-25] MEDS: HYDROmorphone HCL 2 MG/ML VL/or syr IV ONE (16:54)
--- NOTE | 2025-04-25 17:36 | DVHHP2 ---
History of Present Illness Reason for Visit: Fall injury History of Present Illness 84-year-old female presents for evaluation of fall injury. Patient reports getting up today in the morning to use the restroom using her walker. She reports subsequently tripping over falling over to the right side. She reports not being able to get up until assisted by her daughter an hour later. Denies head trauma or loss of consciousness. Reports mild right hip pain. Past Medical History AFib, CHF, dementia,. , hypertension, arthritis Past Surgical History Pacemaker, TAVR, bilateral hip replacement Family History Noncontributory Smoke: No ALCOHOL: none Drugs: None Lives: with Family Review of Systems Review of Systems Review of systems are currently negative otherwise addressed in HPI. Allergies: Coded Allergies: Morphine (Verified Allergy, Unknown, 12/28/22) Medications Current Medications Medications Dose Ordered Sig/Clay Route Start Time Stop Time Status Last Admin Dose Admin Ceftriaxone Sodium 50 ml @ 100 mls/hr DAILY@09 IV 04/26/25 09:00 UNV Carvedilol 25 mg Q12HR PO 04/25/25 22:00 UNV Exam Vital Signs Vital Signs Date Time Temp Pulse Resp B/P (MAP) Pulse Ox O2 Delivery O2 Flow Rate FiO2 04/25/25 16:33 67 18 98 Nasal Cannula* 2 28 04/25/25 16:00 97.9 144/85 (104) 97.9 Exam Gen: 84-year-old female in mild distress Skin: Warm, dry, normal color and texture, no rash. HEENT: Normocephalic atraumatic, mucous membranes moist and pink. Neck: Cervical and supraclavicular nodes normal without enlargement, trachea is midline, thyroid gland is normal without masses. Pulmonary: Clear to auscultation and percussion bilaterally. Cardiac: Regular rate and rhythm. No murmur Abdomen: Soft, nontender, nondistended, bowel sounds present all 4 quadrants, no guarding, no rigidity, no organomegaly. Extremities: No cyanosis, clubbing, no edema Neuro: Cranial nerves II through XII grossly intact, normal affect and speech, no focal motor deficits. Labs/Xrays ORDERING PHYSICIAN: ARELI LU RESIDENT PROCEDURE(s): RELB - R ELBOW 2V XRAY REASON: Fall with trauma to right elbow ORDER NUMBER(s): [id number], ACCESSION NUMBER(s): [id number] EXAM: XY R ELBOW 2V XRAY CLINICAL INDICATION: Fall with trauma to right elbow TECHNIQUE: XY R ELBOW 2V XRAY Comparison: None FINDINGS/IMPRESSION: There is no evidence of acute fracture or dislocation. The visualized joint space is well maintained. The alignment is anatomical. There is no radiopaque foreign body. ATED BY: THAI BARCLAY MD ORDERING PHYSICIAN: ARELI LU PROCEDURE(s): RHIP - R HIP COMPLETE XRAY REASON: right hip pain post fall ORDER NUMBER(s): [id number], ACCESSION NUMBER(s): [id number] Right HIP RADIOGRAPH. CLINICAL INDICATION: right hip pain post fall TECHNIQUE: 4 views of the right hip were obtained. FINDINGS: Left total hip arthroplasty. Nondisplaced right superior pubic ramus fracture. Intramedullary tom in the right femur. IMPRESSION: Nondisplaced right superior pubic ramus fracture. RING PHYSICIAN: ARELI LU PROCEDURE(s): RRIBS - R RIB XRAY REASON: Right side chest pain post fall ORDER NUMBER(s): [id number], ACCESSION NUMBER(s): [id number] EXAMINATION: XY R RIB XRAY INDICATION: Right side chest pain post fall COMPARISON: XY CHEST PORTABLE on DOS: 10/03/24, XY CHEST PORTABLE on DOS: 07/01/24, XY CHEST PORTABLE on DOS: 04/25/24, XY CHEST PORTABLE on DOS: 04/07/24, XY CHEST PORTABLE on DOS: 12/28/23 TECHNIQUE: Frontal view of the chest and 4 views of the right ribs history FINDINGS: No focal consolidation, pleural effusion or significant pneumothorax. Normal cardiomediastinal silhouette. No displaced right rib fracture. IMPRESSION: No acute cardiopulmonary disease. No displaced right rib fracture. Labs Test 04/25/25 14:19 04/25/25 09:32 Range/Units Urine Color Light-yellow Yellow Urine Clarity Turbid H Clear Urine pH 6.5 5.0-9.0 Urine Specific [place] 1.008 1.001-1.035 Urine Protein Negative Negative Urine Ketones Negative Negative Urine Blood Negative Negative /uL Urine Nitrite 2+ H Negative Urine Bilirubin Negative Negative Urine Urobilinogen Normal Negative mg/dL Urine Leukocyte Esterase 2+ Negative /uL Urine RBC <1 0 - 4 /hpf Urine Microscopic WBC 18 H 0-5 /HPF Urine Squamous Epithelial Cells None seen <5 /hpf Urine Bacteria Few H None Seen /hpf Urine Glucose Normal Normal mg/dL White Blood Count 7.7 4.4-10.8 10^3/uL Red Blood Count 4.23 4.0-5.20 10^6/uL Hemoglobin 12.9 12.2-16.2 g/dL Hematocrit 38.9 36.0-46.0 % Mean Corpuscular Volume 92.1 80.0-100.0 fL Mean Corpuscular Hemoglobin 30.5 28.0-32.0 pg Mean Corpuscular Hemoglobin Concent 33.2 32.0-36.0 g/dL Red Cell Distribution Width 16.0 H 11.8-14.3 % Platelet Count 141 140-450 10^3/uL Mean Platelet Volume 7.5 6.9-10.8 fL Neutrophils (%) (Auto) 67.5 37.0-80.0 % Lymphocytes (%) (Auto) 18.8 10.0-50.0 % Monocytes (%) (Auto) 9.2 0.0-12.0 % Eosinophils (%) (Auto) 3.7 0.0-7.0 % Basophils (%) (Auto) 0.8 0.0-2.0 % Neutrophils # (Auto) 5.2 1.6-8.6 10 ^3/uL Lymphocytes # (Auto) 1.4 0.4-5.4 10 ^3/uL Monocytes # (Auto) 0.7 0-1.3 10 ^3/uL Eosinophils # (Auto) 0.3 0-0.8 10 ^3/uL Basophils # (Auto) 0.1 0-0.2 10 ^3/uL Nucleated Red Blood Cells 0.0 % Sodium Level 142 136-145 mmol/L Potassium Level 4.0 3.5-5.1 mmol/L Chloride Level 106 98-107 mmol/L Carbon Dioxide Level 27 20-31 mmol/L Anion Gap 9 5-15 Blood Urea Nitrogen 14 9-23 mg/dL Creatinine 0.85 0.550-1.02 mg/dL Glomerular Filtration Rate Calc 67 >90 mL/min BUN/Creatinine Ratio 16.5 10.0-20.0 Serum Glucose 99 74-106 mg/dL Calcium Level 9.0 8.7-10.4 mg/dL Troponin I High Sensitivity 8 </=34 ng/L SEPSIS Sepsis Screen Date sepsis recognized/suspect: Apr 25, 2025 Time Sepsis recognized/suspect: 1640 Recent Procedure: No On Antibiotic Therapy: No Respiratory Rate >20: No Heart Rate >90: No Temp<36 C (96.8 F) or >38.3 C: No SBP <90 or MAP <65 mmHG: No New Acute Mental Status Change: No Is the patient on CPAP, BIPAP,: No Physician Orders * Orthopedic Consult (04/25/25 10:57) Insert/Manage Urinary Catheter QSHIFT (04/25/25 16:26) Admit (04/25/25 16:56) Ceftriaxone 1gm/50ml (Rocephin) (04/26/25 09:00) Carvedilol Tablet (Coreg Tablet) (04/25/25 22:00) Diltiazem Er Capsule (Cardizem La Capsul (04/26/25 10:00) Donepezil Tablet (Aricept Tablet) (04/25/25 22:00) Furosemide Tablet (Lasix Tablet) (04/26/25 10:00) Hydralazine Hcl Tablet (Apresoline Table (04/25/25 22:00) (Nf) Xarelto (04/26/25 10:00) Pantoprazole Tablet (Protonix Tablet) (04/26/25 06:00) Pt Request For Service (04/25/25 17:26) Ketorolac Injection (Toradol Injection) (04/25/25 17:30) Hydrocodone-Acet 5/325mg Tab ([place] 5/32 (04/25/25 17:30) Ondansetron Hcl (Zofran) (04/25/25 17:30) Cardiac Diet-2gna,Lofat,Lochol (04/25/25 Dinner) Condition: Stable (04/25/25 17:26) Acetaminophen Tablet (Tylenol Tablet) (04/25/25 17:30) Bedrest With Bathroom Privileg (04/25/25 17:26) Vital Signs Date Time Temp Pulse Resp B/P (MAP) Pulse Ox O2 Delivery O2 Flow Rate FiO2 04/25/25 16:33 67 18 98 Nasal Cannula* 2 28 04/25/25 16:00 97.9 62 14 144/85 (104) 99 97.9 04/25/25 15:37 68 14 144/85 (104) 99 04/25/25 10:32 63 04/25/25 10:30 63 Laboratory Tests Test 04/25/25 09:32 White Blood Count 7.7 10^3/uL (4.4-10.8) Medications Medications Dose Ordered Sig/Clay Route Start Time Stop Time Status Last Admin Dose Admin Ketorolac Tromethamine 15 mg ONCE ONCE IV 04/25/25 09:30 04/25/25 10:29 DC 04/25/25 14:47 15 MG Assessment/Plan Assessment/Plan Assessment Fall injury Pubic ramus fracture Urinary tract infection Hypertension History of AFib Plan Admit the patient to [facility] to the hospitalist Orthopedic consult pending Physical therapy Pain management Continue treatment per orders Plan discussed with: Patient My Orders Orders - TAVARES RAOCNMarcus Procedure Category Date Status Time Admit ADMIT 04/25/25 Transmitted 16:56 Ceftriaxone 1gm/50ml PHA 04/26/25 Logged (Rocephin) 09:00 Carvedilol Tablet PHA 04/25/25 Logged (Coreg Tablet) 22:00 Diltiazem Er Capsule PHA 04/26/25 Logged (Cardizem La Capsul 10:00 Donepezil Tablet PHA 04/25/25 Transmitted (Aricept Tablet) 22:00 Furosemide Tablet PHA 04/26/25 Transmitted (Lasix Tablet) 10:00 Hydralazine Hcl PHA 04/25/25 Transmitted Tablet (Apresoline 22:00 (Nf) Xarelto PHA 04/26/25 Transmitted 10:00 Pantoprazole Tablet PHA 04/26/25 Transmitted (Protonix Tablet) 06:00 Pt Request For Service PT 04/25/25 Logged 17:26 Ketorolac Injection PHA 04/25/25 Transmitted (Toradol Injection) 17:30 Hydrocodone-Acet PHA 04/25/25 Transmitted 5/325mg Tab ([place] 17:30 Ondansetron Hcl PHA 04/25/25 Transmitted (Zofran) 17:30 Cardiac DIET 04/25/25 Transmitted Diet-2gna,Lofat,Lochol Dinner Condition: Stable ABE 04/25/25 In Process 17:26 Acetaminophen Tablet PHA 04/25/25 Transmitted (Tylenol Tablet) 17:30 Bedrest With Bathroom ABE 04/25/25 In Process Privileg 17:26 Date of Service: Apr 25, 2025 Billing Provider: TAVARES RAO Common Visit Codes: [id number] INP/OBS CARE (MOD) TAVARES RAO Apr 25, 2025 17:36
[2025-04-25] MEDS: CARVEDILOL 12.5 MG TAB PO SCH (22:24)
[2025-04-25] MEDS: DONEPEZIL HYDROCHLORIDE 5 MG TAB PO SCH (22:25)
[2025-04-25 23:08] VITALS: BP 147/96; PULSE 85; RESP 18; TEMP 98.1; O2SAT 97
[2025-04-26] VITALS (8 sets, daily range): BP systolic 108–157; BP diastolic 66–104; PULSE 64–81; RESP 16–19; TEMP 97.1–98.4; O2SAT 96–99
[2025-04-26] MEDS: PANTOPRAZOLE 40 MG TAB PO SCH (06:16)
[2025-04-26] MEDS: HYDROcodone-ACET 5/325MG TAB PO PRN (06:16)
[2025-04-26] MEDS: KETOROLAC TROMETH 30 MG/ML 1ML VIAL IV PRN (09:25)
[2025-04-26] MEDS: FUROSEMIDE 20 MG TAB PO SCH (09:27)
[2025-04-26] MEDS: RIVAROXABAN 20 MG TAB PO SCH (09:27)
--- NOTE | 2025-04-26 12:06 | DVHPN2 ---
Reviewed: Care Plan Changes from previous H/P or p: No Changes Objective Vitals Vital Signs Date Time Temp Pulse Resp B/P (MAP) Pulse Ox O2 Delivery O2 Flow Rate FiO2 04/26/25 09:27 140/96 04/26/25 09:27 79 04/26/25 09:00 98.0 16 97 98.0 04/25/25 23:08 Nasal Cannula* 1 24 Intake/Output Intake and Output 04/26/25 07:00 Output Total 800 ml Balance -800 ml Output Urine Total 800 ml Medications Current Medications Medications Dose Ordered Sig/Clay Route Start Time Stop Time Status Last Admin Dose Admin Ceftriaxone Sodium 50 ml @ 100 mls/hr DAILY@09 IV 04/26/25 09:00 04/26/25 09:24 100 MLS/HR Carvedilol 25 mg Q12HR PO 04/25/25 22:00 04/26/25 09:26 25 MG Diltiazem HCl 180 mg DAILY PO 04/26/25 10:00 04/26/25 09:27 180 MG Donepezil HCl 10 mg HS PO 04/25/25 22:00 04/25/25 22:25 10 MG Furosemide 20 mg DAILY PO 04/26/25 10:00 04/26/25 09:27 20 MG Hydralazine HCl 50 mg Q12HR PO 04/25/25 22:00 04/26/25 09:26 50 MG Rivaroxaban 20 mg DAILY PO 04/26/25 10:00 04/26/25 09:27 20 MG Pantoprazole Sodium 40 mg DAILY@0600 PO 04/26/25 06:00 04/26/25 06:16 40 MG Ketorolac Tromethamine 15 mg Q6HPRN PRN IV 04/25/25 17:30 04/30/25 17:29 04/26/25 09:25 15 MG Acetaminophen/ Hydrocodone Bitart 1 tab Q4HP PRN PO 04/25/25 17:30 04/26/25 06:16 1 TAB Ondansetron HCl 4 mg Q4HP PRN IV 04/25/25 17:30 Acetaminophen 650 mg Q6HP PRN PO 04/25/25 17:30 Laboratory Results Laboratory Tests 04/25/25 09:32 Urinalysis Test 04/25/25 14:19 Urine Color Light-yellow (Yellow) Urine Clarity Turbid (Clear) H Urine pH 6.5 (5.0-9.0) Urine Specific [place] 1.008 (1.001-1.035) Urine Protein Negative (Negative) Urine Ketones Negative (Negative) Urine Blood Negative /uL (Negative) Urine Nitrite 2+ (Negative) H Urine Bilirubin Negative (Negative) Urine Urobilinogen Normal mg/dL (Negative) Urine Leukocyte Esterase 2+ /uL (Negative) Urine RBC <1 /hpf (0 - 4) Urine Microscopic WBC 18 /HPF (0-5) H Urine Squamous Epithelial Cells None seen /hpf (<5) Urine Bacteria Few /hpf (None Seen) H Urine Glucose Normal mg/dL (Normal) Labs and/or images reviewed: Labs reviewed by me, Image(s) reviewed by me Assessment/Plan Assessment/Plan Acute right superior pubic ramus fracture: Consult for Dr. Land Mechanical fall Sepsis secondary to urinary tract infection: Blood cultures urine cultures Rocephin Acute on chronic CHF exacerbation AFib Hypertension Dementia Arthritis Time spent 65 minutes Advanced care time 20 minutes Patient is full code Plan discussed with: Patient My Orders Orders - DAVI SAGASTUME MD Procedure Category Date Status Time Blood Culture ELSI 04/26/25 Verified 12:03 Urine Bacterial ELSI 04/26/25 Verified Culture 12:03 Date of Service: Apr 26, 2025 Billing Provider: DAVI SAGASTUME MD Common Visit Codes: [id number] CARE 30-74 MIN DAVI SAGASTUME MD Apr 26, 2025 12:06
[2025-04-27] VITALS (8 sets, daily range): BP systolic 103–153; BP diastolic 73–90; PULSE 62–79; RESP 17–19; TEMP 97.1–98.2; O2SAT 94–99
[2025-04-27] MEDS: ONDANSETRON HCL 4 MG/2 ML VIAL IV PRN (08:07)
--- NOTE | 2025-04-27 09:33 | DVHPN2 ---
Reviewed: Care Plan Changes from previous H/P or p: No Changes Objective Vitals Vital Signs Date Time Temp Pulse Resp B/P (MAP) Pulse Ox O2 Delivery O2 Flow Rate FiO2 04/27/25 09:03 140/85 04/27/25 09:01 69 04/27/25 08:38 97.8 18 97 97.8 04/26/25 20:00 Nasal Cannula* 2 28 Intake/Output Intake and Output 04/27/25 07:00 Intake Total 1002 ml Output Total 625 ml Balance 377 ml Intake Oral 952 ml IV Total 50 ml Output Urine Total 625 ml Medications Current Medications Medications Dose Ordered Sig/Clay Route Start Time Stop Time Status Last Admin Dose Admin Ceftriaxone Sodium 50 ml @ 100 mls/hr DAILY@09 IV 04/26/25 09:00 04/27/25 08:07 100 MLS/HR Carvedilol 25 mg Q12HR PO 04/25/25 22:00 04/27/25 09:00 25 MG Diltiazem HCl 180 mg DAILY PO 04/26/25 10:00 04/27/25 09:01 180 MG Donepezil HCl 10 mg HS PO 04/25/25 22:00 04/26/25 22:30 10 MG Furosemide 20 mg DAILY PO 04/26/25 10:00 04/27/25 09:03 20 MG Hydralazine HCl 50 mg Q12HR PO 04/25/25 22:00 04/27/25 09:03 50 MG Rivaroxaban 20 mg DAILY PO 04/26/25 10:00 04/27/25 09:01 20 MG Pantoprazole Sodium 40 mg DAILY@0600 PO 04/26/25 06:00 04/27/25 06:01 40 MG Ketorolac Tromethamine 15 mg Q6HPRN PRN IV 04/25/25 17:30 04/30/25 17:29 04/26/25 22:32 15 MG Acetaminophen/ Hydrocodone Bitart 1 tab Q4HP PRN PO 04/25/25 17:30 04/27/25 06:02 1 TAB Ondansetron HCl 4 mg Q4HP PRN IV 04/25/25 17:30 04/27/25 08:07 4 MG Acetaminophen 650 mg Q6HP PRN PO 04/25/25 17:30 Laboratory Results Laboratory Tests 10/23/25 09:32 Urinalysis Test 04/25/25 14:19 Urine Color Light-yellow (Yellow) Urine Clarity Turbid (Clear) H Urine pH 6.5 (5.0-9.0) Urine Specific [place] 1.008 (1.001-1.035) Urine Protein Negative (Negative) Urine Ketones Negative (Negative) Urine Blood Negative /uL (Negative) Urine Nitrite 2+ (Negative) H Urine Bilirubin Negative (Negative) Urine Urobilinogen Normal mg/dL (Negative) Urine Leukocyte Esterase 2+ /uL (Negative) Urine RBC <1 /hpf (0 - 4) Urine Microscopic WBC 18 /HPF (0-5) H Urine Squamous Epithelial Cells None seen /hpf (<5) Urine Bacteria Few /hpf (None Seen) H Urine Glucose Normal mg/dL (Normal) Labs and/or images reviewed: Labs reviewed by me, Image(s) reviewed by me Assessment/Plan Assessment/Plan Acute right superior pubic ramus fracture: Consult for Dr. Land Mechanical fall Sepsis secondary to urinary tract infection: Blood cultures urine cultures Rocephin Acute on chronic CHF exacerbation AFib Hypertension Dementia Arthritis Time spent 55 minutes Advanced care time 20 minutes Patient is full code Plan discussed with: Patient My Orders Orders - DAVI SAGASTUME MD Procedure Category Date Status Time Blood Culture ELSI 04/26/25 In Process 12:03 Urine Bacterial ELSI 04/26/25 Logged Culture 12:03 Date of Service: Apr 27, 2025 Billing Provider: DAVI SAGASTUME MD Common Visit Codes: [id number] INP/OBS CARE(HIGH) DAVI SAGASTUME MD Apr 27, 2025 09:33
[2025-04-27] MEDS: ACETAMINOPHEN 325 MG TAB PO PRN (20:26)
[2025-04-28] VITALS (8 sets, daily range): BP systolic 120–171; BP diastolic 73–92; PULSE 64–76; RESP 17–20; TEMP 97.4–98.8; O2SAT 93–98
--- NOTE | 2025-04-28 08:19 | DVHINCON2 ---
Date of service: Apr 28, 2025 Reason for Consultation Left hip pubic rami fracture History of Present Illness 84 yo F with hx of Left NATALIE sp mechanical fall with left hip/groin pain -- troub le to bear weight. Past Medical History Past Medical History AFib, CHF, dementia, hypertension Past Surgical History Pacemaker, TAVR, bilateral hip replacement Family History: Patient reports no known family medical history. Allergies: Coded Allergies: Morphine (Verified Allergy, Unknown, 12/28/22) Home Meds Active Scripts Cefdinir (Cefdinir) 300 Mg Cap, 1 CAP PO BID for 3 Days, #6 CAP Prov:GIACOMO DEE MD 10/05/24 Reported Medications Albuterol Sulfate (Albuterol Sulfate Hfa) 108 Mcg/Act Aer, 1 PUFF PO Q12HR PRN PRN for ACUTE BRONCHITIS DUE TO STREP for 60 Days, #7 10/04/24 Irbesartan (IRBESARTAN) 300 Mg Tab, 1 TAB PO DAILY for 90 Days, #90 10/04/24 Furosemide (Furosemide) 20 Mg Tab, 1 TAB PO DAILY for 90 Days, #90 10/04/24 Omeprazole (Omeprazole Dr) 20 Mg Cap, 1 CAP PO DAILY for 90 Days, #90 10/04/24 Montelukast Sodium (MONTELUKAST SODIUM) 10 Mg Tab, 1 TAB PO DAILY for 30 Days, #30 10/04/24 Rivaroxaban (Xarelto Tablet) 20 Mg Tb, 1 TAB PO DAILY for 30 Days, #30 10/04/24 Hydralazine Hcl (Hydralazine Hcl) 50 Mg Tab, 1 TAB PO TID for 30 Days, #90 10/04/24 Isosorbide Mononitrate (Isosorbide Mononitrate Er) 30 Mg Tab, 1 TAB PO DAILY for 30 Days, #30 10/04/24 Diltiazem Hcl (DILTIAZEM HCL ER) 240 Mg Cap, 1 CAP PO DAILY 07/04/24 Bisacodyl (Dulcolax) 10 Mg Sup, 10 MG RE DAILY PRN for FOR CONSTIPATION, SUPP 04/26/24 Magnesium Hydroxide (Milk Of Magnesia) 400 Mg/5 Ml Bernie, 30 ML PO DAILY PRN for FOR CONSTIPATION, ML 04/26/24 Acetaminophen (Apap) 325 Mg Tab, 2 TAB PO Q4HPRN PRN for mild pain 1-3, TAB 04/26/24 Pantoprazole Sodium Sesquihydr (Pantoprazole Sodium) 40 Mg Tab, 1 TAB PO BID 04/26/24 Oxybutynin Chloride (Oxybutynin Chloride) 5 Mg Tab, 10 MG PO DAILY 04/26/24 Docusate Sodium (Colace) 100 Mg Cap, 1 CAP PO BID PRN for FOR CONSTIPATION, #30 CAP 06/22/21 Gabapentin (Gabapentin) 300 Mg Cap, 300 MG PO DAILY for 30 Days, MG 06/22/21 Donepezil Hydrochloride (DONEPEZIL HCL) 10 Mg Tab, 10 MG PO DAILY for 30 Days, MG 06/22/21 Carvedilol (Carvedilol) 25 Mg Tab, 25 MG PO Q12HR for 30 Days, MG 06/22/21 Review of Systems 10 point ROS is neg Vital Signs Vital Signs Date Time Temp Pulse Resp B/P (MAP) Pulse Ox O2 Delivery O2 Flow Rate FiO2 04/28/25 05:00 97.4 65 18 134/87 (103) 97 97.4 04/27/25 20:00 Nasal Cannula* 2 28 Physical Exam NAD Aox3 verbal wn wd LLE: inc healed +ta/gs/ehl/fhl foot wwp Labs/Diagnostic Data Labs Test 04/25/25 14:19 04/25/25 09:32 Range/Units Urine Color Light-yellow Yellow Urine Clarity Turbid H Clear Urine pH 6.5 5.0-9.0 Urine Specific [place] 1.008 1.001-1.035 Urine Protein Negative Negative Urine Ketones Negative Negative Urine Blood Negative Negative /uL Urine Nitrite 2+ H Negative Urine Bilirubin Negative Negative Urine Urobilinogen Normal Negative mg/dL Urine Leukocyte Esterase 2+ Negative /uL Urine RBC <1 0 - 4 /hpf Urine Microscopic WBC 18 H 0-5 /HPF Urine Squamous Epithelial Cells None seen <5 /hpf Urine Bacteria Few H None Seen /hpf Urine Glucose Normal Normal mg/dL White Blood Count 7.7 4.4-10.8 10^3/uL Red Blood Count 4.23 4.0-5.20 10^6/uL Hemoglobin 12.9 12.2-16.2 g/dL Hematocrit 38.9 36.0-46.0 % Mean Corpuscular Volume 92.1 80.0-100.0 fL Mean Corpuscular Hemoglobin 30.5 28.0-32.0 pg Mean Corpuscular Hemoglobin Concent 33.2 32.0-36.0 g/dL Red Cell Distribution Width 16.0 H 11.8-14.3 % Platelet Count 141 140-450 10^3/uL Mean Platelet Volume 7.5 6.9-10.8 fL Neutrophils (%) (Auto) 67.5 37.0-80.0 % Lymphocytes (%) (Auto) 18.8 10.0-50.0 % Monocytes (%) (Auto) 9.2 0.0-12.0 % Eosinophils (%) (Auto) 3.7 0.0-7.0 % Basophils (%) (Auto) 0.8 0.0-2.0 % Neutrophils # (Auto) 5.2 1.6-8.6 10 ^3/uL Lymphocytes # (Auto) 1.4 0.4-5.4 10 ^3/uL Monocytes # (Auto) 0.7 0-1.3 10 ^3/uL Eosinophils # (Auto) 0.3 0-0.8 10 ^3/uL Basophils # (Auto) 0.1 0-0.2 10 ^3/uL Nucleated Red Blood Cells 0.0 % Sodium Level 142 136-145 mmol/L Potassium Level 4.0 3.5-5.1 mmol/L Chloride Level 106 98-107 mmol/L Carbon Dioxide Level 27 20-31 mmol/L Anion Gap 9 5-15 Blood Urea Nitrogen 14 9-23 mg/dL Creatinine 0.85 0.550-1.02 mg/dL Glomerular Filtration Rate Calc 67 >90 mL/min BUN/Creatinine Ratio 16.5 10.0-20.0 Serum Glucose 99 74-106 mg/dL Calcium Level 9.0 8.7-10.4 mg/dL Troponin I High Sensitivity 8 </=34 ng/L Microbiology Date/Time Source Procedure Growth Status 04/26/25 13:31 Blood Blood Culture - Preliminary NO GROWTH AFTER 24 HOURS OF INCUBATION. Resulted Plan/Recommendation 84 yo F with hx of Left NATALIE sp fall with left superior pubic rami fracture 1. WBAT with walker 2. PT 3. pain control 4. dvt ppx 5. dc planning - follow up with [facility] ortho clinic in 4 weeks Plan discussed with: Patient AMAURI CROWDER MD Apr 28, 2025 08:18
--- NOTE | 2025-04-28 09:30 | DVHPN2 ---
Reviewed: Care Plan Changes from previous H/P or p: No Changes Objective Vitals Vital Signs Date Time Temp Pulse Resp B/P (MAP) Pulse Ox O2 Delivery O2 Flow Rate FiO2 04/28/25 05:00 97.4 65 18 134/87 (103) 97 97.4 04/27/25 20:00 Nasal Cannula* 2 28 Intake/Output Intake and Output 04/28/25 07:00 Intake Total 1498 ml Output Total 1100 ml Balance 398 ml Intake Oral 1448 ml IV Total 50 ml Output Urine Total 1100 ml Medications Current Medications Medications Dose Ordered Sig/Clay Route Start Time Stop Time Status Last Admin Dose Admin Ceftriaxone Sodium 50 ml @ 100 mls/hr DAILY@09 IV 04/26/25 09:00 04/27/25 08:07 100 MLS/HR Carvedilol 25 mg Q12HR PO 04/25/25 22:00 04/27/25 21:23 25 MG Diltiazem HCl 180 mg DAILY PO 04/26/25 10:00 04/27/25 09:01 180 MG Donepezil HCl 10 mg HS PO 04/25/25 22:00 04/27/25 21:22 10 MG Furosemide 20 mg DAILY PO 04/26/25 10:00 04/27/25 09:03 20 MG Hydralazine HCl 50 mg Q12HR PO 04/25/25 22:00 04/27/25 09:03 50 MG Rivaroxaban 20 mg DAILY PO 04/26/25 10:00 04/27/25 09:01 20 MG Pantoprazole Sodium 40 mg DAILY@0600 PO 04/26/25 06:00 04/28/25 05:48 40 MG Ketorolac Tromethamine 15 mg Q6HPRN PRN IV 04/25/25 17:30 04/30/25 17:29 04/28/25 05:48 15 MG Acetaminophen/ Hydrocodone Bitart 1 tab Q4HP PRN PO 04/25/25 17:30 04/27/25 06:02 1 TAB Ondansetron HCl 4 mg Q4HP PRN IV 04/25/25 17:30 04/27/25 08:07 4 MG Acetaminophen 650 mg Q6HP PRN PO 04/25/25 17:30 04/27/25 20:26 650 MG Laboratory Results Laboratory Tests 04/25/25 09:32 Urinalysis Test 04/25/25 14:19 Urine Color Light-yellow (Yellow) Urine Clarity Turbid (Clear) H Urine pH 6.5 (5.0-9.0) Urine Specific [place] 1.008 (1.001-1.035) Urine Protein Negative (Negative) Urine Ketones Negative (Negative) Urine Blood Negative /uL (Negative) Urine Nitrite 2+ (Negative) H Urine Bilirubin Negative (Negative) Urine Urobilinogen Normal mg/dL (Negative) Urine Leukocyte Esterase 2+ /uL (Negative) Urine RBC <1 /hpf (0 - 4) Urine Microscopic WBC 18 /HPF (0-5) H Urine Squamous Epithelial Cells None seen /hpf (<5) Urine Bacteria Few /hpf (None Seen) H Urine Glucose Normal mg/dL (Normal) Microbiology Microbiology Date/Time Source Procedure Growth Status 04/26/25 13:31 Blood Blood Culture - Preliminary NO GROWTH AFTER 24 HOURS OF INCUBATION. Resulted Labs and/or images reviewed: Labs reviewed by me, Image(s) reviewed by me Assessment/Plan Assessment/Plan Acute right superior pubic ramus fracture: Consult for appreciated, advised weight-bearing as tolerated with a walker physical therapy pain control DVT prophylaxis and follow up with ortho clinic in four weeks History of left total hip arthroplasty Mechanical fall Sepsis secondary to urinary tract infection: Blood cultures negative, urine cultures pending, continue Rocephin Acute on chronic CHF exacerbation AFib Hypertension Dementia Arthritis Time spent 55 minutes Advanced care time 20 minutes Patient is full code Plan discussed with: Patient My Orders Orders - DAVI SAGASTUME MD Procedure Category Date Status Time * Orthopedic Consult CONS 04/27/25 Transmitted 09:26 Date of Service: Apr 28, 2025 Billing Provider: DAVI SAGASTUME MD Common Visit Codes: [id number] INP/OBS CARE(HIGH) DAVI SAGASTUME MD Apr 28, 2025 09:30
[2025-04-29] VITALS (8 sets, daily range): BP systolic 116–141; BP diastolic 71–89; PULSE 61–80; RESP 17–21; TEMP 36.6; O2SAT 93–97
--- NOTE | 2025-04-29 11:42 | DVHPN2 ---
Reviewed: Care Plan Changes from previous H/P or p: No Changes Objective Vitals Vital Signs Date Time Temp Pulse Resp B/P (MAP) Pulse Ox O2 Delivery O2 Flow Rate FiO2 04/29/25 09:39 121/79 04/29/25 09:39 61 04/29/25 09:00 97.9 19 97 97.9 04/29/25 08:00 Nasal Cannula* 3 32 Intake/Output Intake and Output 04/29/25 07:00 Intake Total 1050 ml Output Total 1350 ml Balance -300 ml Intake Oral 1000 ml IV Total 50 ml Output Urine Total 1350 ml Medications Current Medications Medications Dose Ordered Sig/Clay Route Start Time Stop Time Status Last Admin Dose Admin Ceftriaxone Sodium 50 ml @ 100 mls/hr DAILY@09 IV 04/26/25 09:00 04/29/25 08:10 100 MLS/HR Carvedilol 25 mg Q12HR PO 04/25/25 22:00 04/29/25 09:39 25 MG Diltiazem HCl 180 mg DAILY PO 04/26/25 10:00 04/28/25 09:42 180 MG Donepezil HCl 10 mg HS PO 04/25/25 22:00 04/28/25 21:42 10 MG Furosemide 20 mg DAILY PO 04/26/25 10:00 04/29/25 09:39 20 MG Hydralazine HCl 50 mg Q12HR PO 04/25/25 22:00 04/29/25 09:39 50 MG Rivaroxaban 20 mg DAILY PO 04/26/25 10:00 04/29/25 09:39 20 MG Pantoprazole Sodium 40 mg DAILY@0600 PO 04/26/25 06:00 04/29/25 05:12 40 MG Ketorolac Tromethamine 15 mg Q6HPRN PRN IV 04/25/25 17:30 04/30/25 17:29 04/29/25 05:12 15 MG Acetaminophen/ Hydrocodone Bitart 1 tab Q4HP PRN PO 04/25/25 17:30 04/27/25 06:02 1 TAB Ondansetron HCl 4 mg Q4HP PRN IV 04/25/25 17:30 04/27/25 08:07 4 MG Acetaminophen 650 mg Q6HP PRN PO 04/25/25 17:30 04/29/25 09:46 650 MG Laboratory Results Laboratory Tests 04/25/25 09:32 Urinalysis Test 04/25/25 14:19 Urine Color Light-yellow (Yellow) Urine Clarity Turbid (Clear) H Urine pH 6.5 (5.0-9.0) Urine Specific [place] 1.008 (1.001-1.035) Urine Protein Negative (Negative) Urine Ketones Negative (Negative) Urine Blood Negative /uL (Negative) Urine Nitrite 2+ (Negative) H Urine Bilirubin Negative (Negative) Urine Urobilinogen Normal mg/dL (Negative) Urine Leukocyte Esterase 2+ /uL (Negative) Urine RBC <1 /hpf (0 - 4) Urine Microscopic WBC 18 /HPF (0-5) H Urine Squamous Epithelial Cells None seen /hpf (<5) Urine Bacteria Few /hpf (None Seen) H Urine Glucose Normal mg/dL (Normal) Microbiology Microbiology Date/Time Source Procedure Growth Status 04/27/25 10:30 Voided Urine Urine Culture - Preliminary Resulted 04/26/25 13:31 Blood Blood Culture - Preliminary NO GROWTH AFTER 48 HOURS OF INCUBATION. Resulted Labs and/or images reviewed: Labs reviewed by me, Image(s) reviewed by me Assessment/Plan Assessment/Plan Acute right superior pubic ramus fracture: Consult for Dr.Nayyar mills, advised weight-bearing as tolerated with a walker physical therapy pain control DVT prophylaxis and follow up with ortho clinic in four weeks History of left total hip arthroplasty Mechanical fall Sepsis secondary to urinary tract infection: Blood cultures negative, urine cultures pending, continue Rocephin Acute on chronic CHF exacerbation AFib Hypertension Dementia Arthritis Time spent 55 minutes Advanced care time 20 minutes Patient is full code Plan discussed with: Patient My Orders Orders - DAVI SAGASTUME MD Procedure Category Date Status Time * Wound Consult CONS 04/28/25 Transmitted 11:52 Cover Wound With Foam ABE 04/28/25 In Process Dressing 11:34 Date of Service: Apr 29, 2025 Billing Provider: DAVI SAGASTUME MD Common Visit Codes: [id number] INP/OBS CARE(HIGH) DAVI SAGASTUME MD Apr 29, 2025 11:42
[2025-04-29] MEDS ORDERED: HYDR-4902 PO (11:58)
[2025-04-29] MEDS ORDERED: LEVO500T91 PO (11:58)
== END 2025-04-29 18:41 | disposition home health service (06) | DRG 871 ==
LOC: EDBD 08:39 → ER 08:46 → OVERFLOW 16:58 → EAST 22:55
PROVIDERS: ADMIT Family Medicine; ATTEND Family Medicine
DX: A41.9 Sepsis, unspecified organism (principal); I50.33 Acute on chronic diastolic (congestive) heart failure; N39.0 Urinary tract infection, site not specified; S32.591A Other specified fracture of right pubis, initial encounter for closed fracture; I48.91 Unspecified atrial fibrillation; F03.90 Unspecified dementia, unspecified severity, without behavioral disturbance, psychotic disturbance, mood disturbance, and anxiety; M19.90 Unspecified osteoarthritis, unspecified site; I11.0 Hypertensive heart disease with heart failure; Z96.643 Presence of artificial hip joint, bilateral; E78.5 Hyperlipidemia, unspecified; K21.9 Gastro-esophageal reflux disease without esophagitis; W18.39XA Other fall on same level, initial encounter; Y93.89 Activity, other specified; Y92.89 Other specified places as the place of occurrence of the external cause; Z88.5 Allergy status to narcotic agent; Y99.8 Other external cause status; Z95.2 Presence of prosthetic heart valve; Z95.0 Presence of cardiac pacemaker; Z79.01 Long term (current) use of anticoagulants; Z79.899 Other long term (current) drug therapy
CPT/HCPCS: 36415; 71101; 73070; 73502; 80048; 81001; 84484; 85025; 87040; 87086; 93005; 96374; 97110; 97116; 97163; 97530; G0378; J1885; J2405

== ENCOUNTER 2025-05-09 09:12 | Inpatient (IN) | payer MEDICARE, MEDICAID ==
[~2025-05-09] VITALS: Ht 165.1 cm; Wt 77.2 kg
[~2025-05-09 09:12] MED LIST changes: +HYDR-4902 PO; +LEVO500T91 PO
--- NOTE | 2025-05-09 09:33 | ED.PDOC ---
History of Present Illness HPI Comments Ms. Villanueva is an 84 year old female with prior medical history of aortic stenosis status post TAVR, AFib on Xarelto, HFpEF, dyslipidemia, sick sinus syndrome status post pacemaker placement, and bilateral hip fractures status post replacement, who presents today BIBA due to general weakness. Patient is a poor historian. Per the patient she refers weakness and decreased appetite for the last 4-5 days associated with dysuria, coughing, sore throat, and increased nasal discharge. Per EMS who spoke with the patient's daughter, the patient has been increasingly confused for the last week, answering questions inappropriately, and hallucinating family members that are not there. She was recently discharged from this institution after a right pelvic fracture, due to urine cultures growing E coli ESBL she was sent home on IV ertapenem. On initial evaluation, the patient is AOx3, afebrile, vitals are stable, with no overt signs of distress. Chief Complaint: General Weakness Time Seen by MD: 09:36 Primary Care Provider: "DASHAWN" Allergies: Coded Allergies: NO KNOWN ALLERGIES (Unverified , 04/07/24) Home Meds Active Scripts Prednisone (Prednisone) 20 Mg Tab, 40 MG PO DAILY, #20 TAB Prov:KARIN BARBOUR 02/09/24 Acetaminophen (Tylenol 8 Hour Arthritis) 650 Mg Tab, 650 MG PO BID, #30 TAB Prov:KARIN BARBOUR 02/09/24 Reported Medications Omeprazole (Gnp Omeprazole) 20 Mg Tab, 20 MG PO DAILY, TAB 04/08/24 Gabapentin (Gabapentin) 300 Mg Cap, 1 CAP PO DAILY 04/07/24 Carvedilol (Carvedilol) 25 Mg Tab, 1 TAB PO TID 04/07/24 Donepezil Hydrochloride (DONEPEZIL HCL) 10 Mg Tab, 1 TAB PO DAILY 04/07/24 Hydralazine Hcl (Hydralazine Hcl) 50 Mg Tab, 1 TAB PO TID 04/07/24 Oxybutynin Chloride (Oxybutynin Chloride) 5 Mg Tab, 10 MG PO DAILY 04/07/24 Isosorbide Mononitrate (Isosorbide Mononitrate Er) 30 Mg Tab, 1 TAB PO DAILY 04/07/24 Diltiazem Hcl (DILTIAZEM HCL ER) 240 Mg Cap, 1 CAP PO DAILY 04/07/24 Rivaroxaban (Xarelto Tablet) 20 Mg Tb, 1 TAB PO DAILY 04/07/24 Information Source: Patient, Emergency Med Personnel Mode of Arrival: EMS Severity: Mild Timing: Days Prehospital treatment: Accucheck Past Medical History PAST MEDICAL HISTORY: AFIB, CHF, GERD, High Lipids, HTN Past Medical History (Other): Aortic stenosis status post TAVR, sick sinus syndrome status post pacemaker Surgical History: Pacemaker Surgical History (Other): Left total hip replacement, right hip fixation OPHTHALMIC LENS INSPECTOR History: No Pertinent OPHTHALMIC LENS INSPECTOR History Family History Family History: Reviewed,noncontributory to illness Social History Smoker: Non-Smoker Alcohol: Denies ETOH Use Drugs: Denies Drug Use Lives In: Home Constitutional: reports: fatigue; denies: chills, diaphoresis, fever, malaise, sweats, weakness EENTM: reports: nasal discharge, nose congestion, throat pain; denies: blurred vision, double vision Respiratory: reports: cough; denies: hemoptysis, orthopnea, shortness of breath Cardiovascular: denies: chest pain, dizzy spells, diaphoresis, Dyspnea on exertion, edema, irregular heart beat, left arm pain, lightheadedness, palpitations Gastrointestinal: reports: poor appetite; denies: abdomen distended, abdominal pain, constipated, diarrhea, dysphagia, difficulty swallowing, hematemesis, melena, nausea, rectal bleeding, vomiting Genitourinary: denies: burning, dysuria, flank pain, frequency, hematuria, incontinence, pain, urgency Neurological: denies: dizziness, fainting, headache, numbness, paresthesia, pre-existing deficit, seizure, weakness Musculoskeletal: denies: back pain, joint pain, joint swelling, muscle pain, muscle stiffness Integumetry: denies: bruises, laceration, lesions, lumps, rash, wounds Physical Exam General Appearance: Mild Distress HEENT: PERRL/EOMI, Pharyngeal Erythema Neck: Full Range of Motion, Non-Tender, Normal Inspection Respiratory: Chest Non-Tender, Lungs Clear, No Accessory Muscle Use, No Respiratory Distress, Normal Breath Sounds Cardiovascular: No Edema, No Murmur, Normal Peripheral Pulses, Regular Rate/Rhythm Breast Exam: Deferred Gastrointestinal: Non Tender, Normal Bowel Sounds, Soft Genitalia: Deferred Pelvic: Deferred Rectal: Deferred Extremities: Decreased range of motion (Decreased range of motion of right leg due to recent fracture ), Normal capillary refill, Normal inspection, Non- tender, No pedal edema Neurologic: Normal Affect, Normal Mood, Other (AOx3) Cerebellar Function: Normal Reflexes: NOT DONE Skin: Normal Color, Other (Presence of IV in right arm, no induration or erythema surrouding insertion point ) Peripheral Pulses: 2+ dorsalis pedis (R), 2+ dorsalis pedis (L) Lymphatic: Other (No cervical adenopathy ) Was a procedure done? Was a procedure done?: No EKG EKG : Pulse Rate (adult): 65 [place]: Normal Cardiac Rhythm: Paced Differential Dx Considerations may include: Sepsis, Cystitis, Pyelonephritis, Nephrolithiasis, Pneumonia, Influenza, COVID, Bronchitis X-Ray, Labs, Meds, VS Vital Signs Date Time Temp Pulse Resp B/P (MAP) Pulse Ox O2 Delivery O2 Flow Rate FiO2 05/09/25 10:00 61 20 96 Nasal Cannula* 2 28 05/09/25 10:00 65 05/09/25 10:00 97.9 61 20 147/86 (106) 96 97.9 05/09/25 09:27 98.2 70 16 126/83 93 98.2 Lab Test 05/09/25 09:40 Range/Units White Blood Count 8.2 4.4-10.8 10^3/uL Red Blood Count 4.05 4.0-5.20 10^6/uL Hemoglobin 12.5 12.2-16.2 g/dL Hematocrit 37.5 36.0-46.0 % Mean Corpuscular Volume 92.5 80.0-100.0 fL Mean Corpuscular Hemoglobin 30.9 28.0-32.0 pg Mean Corpuscular Hemoglobin Concent 33.4 32.0-36.0 g/dL Red Cell Distribution Width 16.7 H 11.8-14.3 % Platelet Count 214 140-450 10^3/uL Mean Platelet Volume 7.4 6.9-10.8 fL Neutrophils (%) (Auto) 69.3 37.0-80.0 % Lymphocytes (%) (Auto) 16.5 10.0-50.0 % Monocytes (%) (Auto) 9.2 0.0-12.0 % Eosinophils (%) (Auto) 4.0 0.0-7.0 % Basophils (%) (Auto) 1.0 0.0-2.0 % Neutrophils # (Auto) 5.7 1.6-8.6 10 ^3/uL Lymphocytes # (Auto) 1.4 0.4-5.4 10 ^3/uL Monocytes # (Auto) 0.8 0-1.3 10 ^3/uL Eosinophils # (Auto) 0.3 0-0.8 10 ^3/uL Basophils # (Auto) 0.1 0-0.2 10 ^3/uL Nucleated Red Blood Cells 0.0 % Sodium Level 141 136-145 mmol/L Potassium Level 4.0 3.5-5.1 mmol/L Chloride Level 104 98-107 mmol/L Carbon Dioxide Level 26 20-31 mmol/L Anion Gap 11 5-15 Blood Urea Nitrogen 13 9-23 mg/dL Creatinine 0.67 0.550-1.02 mg/dL Glomerular Filtration Rate Calc 86 >90 mL/min BUN/Creatinine Ratio 19.4 10.0-20.0 Serum Glucose 94 74-106 mg/dL Lactic Acid Level 0.6 0.4-2.0 mmol/L Calcium Level 9.0 8.7-10.4 mg/dL Time of 1ST Reevaluation: 11:28 Reevaluation 1ST: Unchanged Patient Education/Counseling: Diagnosis, Treatment Family Education/Counseling: No Family Present Comments Patient presented today via EMS due to generalized weakness and confusion On initial evaluation, the patient is AOx3, she is afebrile, and vitals were stable She was recently discharged from this institution where she was sent home with IV ertapenem due to urine cultures growing E coli ESBL Examination is positive for pharyngeal erythema and decreased range of motion and pain of right hip secondary to recent fracture CBC and BMP are within normal range, lactic acid is 0.6, UA is pending Chest x-ray shows no acute cardiopulmonary disease The patient will be admitted for further workup and monitoring SEPSIS Sepsis Screen Physician Orders Urinalysis (05/09/25 09:29) Blood Culture (05/09/25 09:29) Chest Xray 1 View (05/09/25 09:29) Rapid Influenza A&B (05/09/25 09:29) Covid19 Antigen Anne (05/09/25 ) Vital Signs Date Time Temp Pulse Resp B/P (MAP) Pulse Ox O2 Delivery O2 Flow Rate FiO2 05/09/25 10:00 61 20 96 Nasal Cannula* 2 28 05/09/25 10:00 65 05/09/25 10:00 97.9 61 20 147/86 (106) 96 97.9 05/09/25 09:27 98.2 70 16 126/83 93 98.2 Laboratory Tests Test 05/09/25 09:40 Lactic Acid Level 0.6 mmol/L (0.4-2.0) White Blood Count 8.2 10^3/uL (4.4-10.8) Departure 1 Departure Time of Disposition: 11:35 Impression: Primary Impression: Generalized weakness Disposition: 30 STILL A PATIENT Admit to: Tele Condition: Stable Critical Care Note Critical Care Time?: No Stability Stability form required: ARELI Hernandez RESIDENT May 09, 2025 09:33
[2025-05-09 10:00] VITALS: PULSE 61; RESP 20; O2SAT 96
[2025-05-09 10:07] LABS: Hematocrit 37.5 % (36.0-46.0); Hemoglobin 12.5 g/dL (12.2-16.2); Mean Corpuscular Hemoglobin 30.9 pg (28.0-32.0); Mean Corpuscular Volume 92.5 fL (80.0-100.0); Nucleated Red Blood Cells % 0.0 %
--- NOTE | 2025-05-09 10:11 | ECG ---
[facility] Test Date: 2025-05-09 Test Time: 09:55:00 Pat Name: HAROON ALBARADO Department: [facility] ED Room: 0285 Gender: F Process Project Engineer: ADELITA : 1940 Requested By: AREIL LU Order Number: [id number] Reading MD: Bernard Isaac Measurements Intervals [place] Rate: 65 P: 0 CO: 74 QRS: -65 QRSD: 130 T: 91 QT: 450 QTc: 468 Interpretive Statements Ventricular-paced rhythm No further analysis attempted due to paced rhythm Electronically Signed On 05-13-2025 10:53:23 PST by Bernard Isaac Please click the below link to view image of tracing.
[2025-05-09 10:16] LABS: Chloride 104 mmol/L (98-107); Potassium 4.0 mmol/L (3.5-5.1); Sodium 141 mmol/L (136-145)
[2025-05-09 10:17] LABS: Anion Gap 11 (5-15); Carbon Dioxide 26 mmol/L (20-31)
[2025-05-09 10:18] LABS: Calcium 9.0 mg/dL (8.7-10.4)
[2025-05-09 10:22] LABS: BUN/Creatinine Ratio 19.4 (10.0-20.0); Blood Urea Nitrogen 13 mg/dL (9-23); Glucose 94 mg/dL (74-106)
--- NOTE | 2025-05-09 10:27 | DVH ---
CHEST RADIOGRAPH Indication: Cough and SOB Technique: Single frontal view of the chest was obtained Comparison: XY CHEST PORTABLE on DOS: 10/03/24, XY CHEST PORTABLE on DOS: 07/01/24, XY CHEST PORTABLE on DOS: 04/25/24, XY CHEST PORTABLE on DOS: 04/07/24, XY CHEST PORTABLE on DOS: 12/28/23 FINDINGS: Lines and Tubes: Left-sided pacemaker. Lungs: No focal consolidation. Pleura: No effusion. No pneumothorax. Cardiomediastinal contours: Unremarkable Bones: No acute osseous abnormality. IMPRESSION: No acute cardiopulmonary disease.
[2025-05-09] MEDS: SODIUM CHLORIDE 0.9% 250 ML IV ONE (12:00)
[2025-05-09 12:34] LABS: COVID19 ANTIGEN SOFIA FIA NEGATIVE (NEGATIVE)
[2025-05-09 14:09] LABS: Urine Protein, UAD Negative (Negative)
[2025-05-09] MEDS ORDERED: ONDANSETRON HCL 4 MG/2 ML VIAL IV PRN (16:00)
--- NOTE | 2025-05-09 16:18 | DVHHP2 ---
History of Present Illness Reason for Visit: Generalized weakness History of Present Illness Year old female presents for evaluation of generalized weakness. Patient was discharged a week ago and sent home with ertapenem for a ESBL UTI. Today she returns with complaints of generalized weakness. Family reports decreased appet ite infrequent episodes of confusion. Patient is currently lethargic oriented x2. No slurred speech or unilateral weakness noted. Past Medical History Dyslipidemia, hypertension, GERD, CHF, AFib Past Surgical History Aortic stenosis status post TAVR, pacemaker, right hip fixation, left total hip replacement Family History Noncontributory Smoke: No ALCOHOL: none Drugs: None Lives: with Family Review of Systems Review of Systems Review of systems are currently negative otherwise addressed in HPI. Allergies: Coded Allergies: NO KNOWN ALLERGIES (Unverified , 04/07/24) Exam Vital Signs Vital Signs Date Time Temp Pulse Resp B/P (MAP) Pulse Ox O2 Delivery O2 Flow Rate FiO2 05/09/25 14:00 63 12 145/80 (101) 93 05/09/25 10:00 Nasal Cannula* 2 28 05/09/25 10:00 97.9 97.9 Exam Gen: 84-year-old female in mild distress Skin: Warm, dry, normal color and texture, no rash. HEENT: Normocephalic atraumatic, mucous membranes moist and pink. Neck: Cervical and supraclavicular nodes normal without enlargement, trachea is midline, thyroid gland is normal without masses. Pulmonary: Clear to auscultation and percussion bilaterally. Cardiac: Regular rate and rhythm. No murmur Abdomen: Soft, nontender, nondistended, bowel sounds present all 4 quadrants, no guarding, no rigidity, no organomegaly. Extremities: No cyanosis, clubbing, no edema Neuro: Cranial nerves II through XII grossly intact, lethargic, no focal motor deficits. Labs/Xrays ORDERING PHYSICIAN: AERLI LU RESIDENT PROCEDURE(s): CXR1 - CHEST XRAY 1 VIEW REASON: Cough and SOB ORDER NUMBER(s): [id number], ACCESSION NUMBER(s): [id number] CHEST RADIOGRAPH Indication: Cough and SOB Technique: Single frontal view of the chest was obtained Comparison: XY CHEST PORTABLE on DOS: 10/03/24, XY CHEST PORTABLE on DOS: 07/01/24, XY CHEST PORTABLE on DOS: 04/25/24, XY CHEST PORTABLE on DOS: 04/07/24, XY CHEST PORTABLE on DOS: 12/28/23 FINDINGS: Lines and Tubes: Left-sided pacemaker. Lungs: No focal consolidation. Pleura: No effusion. No pneumothorax. Cardiomediastinal contours: Unremarkable Bones: No acute osseous abnormality. IMPRESSION: No acute cardiopulmonary disease. Labs Test 05/09/25 13:50 05/09/25 10:52 05/09/25 09:40 Range/Units Urine Color Light-yellow Yellow Urine Clarity Clear Clear Urine pH 6.5 5.0-9.0 Urine Specific [place] 1.012 1.001-1.035 Urine Protein Negative Negative Urine Ketones Negative Negative Urine Blood Negative Negative /uL Urine Nitrite Negative Negative Urine Bilirubin Negative Negative Urine Urobilinogen 2 H Negative mg/dL Urine Leukocyte Esterase Negative Negative /uL Urine RBC 1 0 - 4 /hpf Urine Microscopic WBC 1 0-5 /HPF Urine Squamous Epithelial Cells Few <5 /hpf Urine Bacteria None seen None Seen /hpf Urine Glucose Normal Normal mg/dL Influenza Type A Antigen Negative Negative Influenza Type B Antigen Negative Negative SARS-CoV-2 Antigen (Rapid) Negative NEGATIVE White Blood Count 8.2 4.4-10.8 10^3/uL Red Blood Count 4.05 4.0-5.20 10^6/uL Hemoglobin 12.5 12.2-16.2 g/dL Hematocrit 37.5 36.0-46.0 % Mean Corpuscular Volume 92.5 80.0-100.0 fL Mean Corpuscular Hemoglobin 30.9 28.0-32.0 pg Mean Corpuscular Hemoglobin Concent 33.4 32.0-36.0 g/dL Red Cell Distribution Width 16.7 H 11.8-14.3 % Platelet Count 214 140-450 10^3/uL Mean Platelet Volume 7.4 6.9-10.8 fL Neutrophils (%) (Auto) 69.3 37.0-80.0 % Lymphocytes (%) (Auto) 16.5 10.0-50.0 % Monocytes (%) (Auto) 9.2 0.0-12.0 % Eosinophils (%) (Auto) 4.0 0.0-7.0 % Basophils (%) (Auto) 1.0 0.0-2.0 % Neutrophils # (Auto) 5.7 1.6-8.6 10 ^3/uL Lymphocytes # (Auto) 1.4 0.4-5.4 10 ^3/uL Monocytes # (Auto) 0.8 0-1.3 10 ^3/uL Eosinophils # (Auto) 0.3 0-0.8 10 ^3/uL Basophils # (Auto) 0.1 0-0.2 10 ^3/uL Nucleated Red Blood Cells 0.0 % Sodium Level 141 136-145 mmol/L Potassium Level 4.0 3.5-5.1 mmol/L Chloride Level 104 98-107 mmol/L Carbon Dioxide Level 26 20-31 mmol/L Anion Gap 11 5-15 Blood Urea Nitrogen 13 9-23 mg/dL Creatinine 0.67 0.550-1.02 mg/dL Glomerular Filtration Rate Calc 86 >90 mL/min BUN/Creatinine Ratio 19.4 10.0-20.0 Serum Glucose 94 74-106 mg/dL Lactic Acid Level 0.6 0.4-2.0 mmol/L Calcium Level 9.0 8.7-10.4 mg/dL SEPSIS Sepsis Screen Date sepsis recognized/suspect: May 09, 2025 Time Sepsis recognized/suspect: 1000 Recent Procedure: Yes On Antibiotic Therapy: Yes Respiratory Rate >20: No Heart Rate >90: No Temp<36 C (96.8 F) or >38.3 C: No SBP <90 or MAP <65 mmHG: No New Acute Mental Status Change: No Is the patient on CPAP, BIPAP,: No Physician Orders Blood Culture (05/09/25 09:29) Chest Xray 1 View (05/09/25 09:29) Admit (05/09/25 13:35) Insert [place] Catheter QSHIFT (05/09/25 13:46) Urine Bacterial Culture (05/09/25 13:46) Vital Signs Date Time Temp Pulse Resp B/P (MAP) Pulse Ox O2 Delivery O2 Flow Rate FiO2 05/09/25 14:00 63 12 145/80 (101) 93 05/09/25 12:00 62 15 136/88 (104) 97 05/09/25 12:00 62 05/09/25 11:37 65 05/09/25 10:00 61 20 96 Nasal Cannula* 2 28 05/09/25 10:00 65 05/09/25 10:00 97.9 61 20 147/86 (106) 96 97.9 05/09/25 09:27 98.2 70 16 126/83 93 98.2 Laboratory Tests Test 05/09/25 09:40 Lactic Acid Level 0.6 mmol/L (0.4-2.0) White Blood Count 8.2 10^3/uL (4.4-10.8) Medications Medications Dose Ordered Sig/Clay Route Start Time Stop Time Status Last Admin Dose Admin Sodium Chloride 250 ml @ 250 mls/hr Q1H ONCE IV 05/09/25 11:45 05/09/25 12:44 DC 05/09/25 12:00 250 MLS/HR Assessment/Plan Assessment/Plan Assessment Failure to thrive next metabolic encephalopathy History of AFib Status post pacemaker Plan Admit the patient to [facility] to the hospitalist Continue ertapenem Urine bacterial culture pending Resume home medications Continue treatment per orders. Plan discussed with: Patient My Orders Orders - TAVARES RAO Procedure Category Date Status Time Admit ADMIT 05/09/25 Transmitted 13:35 Date of Service: May 09, 2025 Billing Provider: TAVARES RAO Common Visit Codes: [id number] INP/OBS CARE (MOD) TAVARES RAO May 09, 2025 16:18
[2025-05-09 20:03] VITALS: PULSE 90; RESP 21; O2SAT 93
[2025-05-09] MEDS: DONEPEZIL HYDROCHLORIDE 5 MG TAB PO SCH (21:58)
[2025-05-09] MEDS: CARVEDILOL 12.5 MG TAB PO SCH (22:03)
[2025-05-10 01:00] VITALS: BP 148/97; PULSE 77; RESP 18; TEMP 96.9; O2SAT 95
[2025-05-10 05:00] VITALS: BP 153/91; PULSE 87; RESP 16; TEMP 97.3; O2SAT 95
[2025-05-10 07:51] LABS: Hematocrit 39.8 % (36.0-46.0); Hemoglobin 13.7 g/dL (12.2-16.2); Mean Corpuscular Hemoglobin 31.6 pg (28.0-32.0); Mean Corpuscular Volume 91.8 fL (80.0-100.0); Nucleated Red Blood Cells % 0.1 %
[2025-05-10 08:00] LABS: Chloride 102 mmol/L (98-107); Potassium 3.6 mmol/L (3.5-5.1); Sodium 140 mmol/L (136-145)
[2025-05-10 08:01] LABS: Calcium 8.8 mg/dL (8.7-10.4)
[2025-05-10 08:06] LABS: BUN/Creatinine Ratio 15.4 (10.0-20.0)
[2025-05-10 08:07] LABS: Blood Urea Nitrogen 8 mg/dL (9-23); Glucose 74 mg/dL (74-106)
[2025-05-10 08:57] LABS: Anion Gap 13 (5-15); Carbon Dioxide 25 mmol/L (20-31)
[2025-05-10 09:00] VITALS: BP 157/99; PULSE 90; RESP 20; TEMP 96.8; O2SAT 97
[2025-05-10] MEDS: ACETAMINOPHEN 325 MG TAB PO PRN (09:27)
[2025-05-10] MEDS: ISOSORBIDE MONONITRATE ER 60 MG TAB PO SCH (09:28)
[2025-05-10] MEDS: GABAPENTIN 300 MG CAP PO SCH (09:28)
[2025-05-10] MEDS: ERTAPENEM SOD INJ 1 GM in SODIUM CHL 0.9% 50 ML IV SCH (09:29)
[2025-05-10] MEDS ORDERED: PATIENTS OWN MEDICATION (ertapenem 1 GM) IV SCH (10:00)
[2025-05-10 12:31] VITALS: BP 137/88; PULSE 87; RESP 20; TEMP 97.3; O2SAT 95
--- NOTE | 2025-05-10 12:48 | DVHPN2 ---
Reviewed: Care Plan, H&P, Labs, Medications, Previous Orders, Radiology Changes from previous H/P or p: No Changes Objective Vitals Vital Signs Date Time Temp Pulse Resp B/P (MAP) Pulse Ox O2 Delivery O2 Flow Rate FiO2 05/10/25 12:31 97.3 87 20 137/88 (104) 95 97.3 05/10/25 08:00 Room Air* 0 21 Intake/Output Intake and Output 05/10/25 07:00 Intake Total 250 ml Output Total 3000 ml Balance -2750 ml Intake IV Total 250 ml Output Urine Total 3000 ml Medications Current Medications Medications Dose Ordered Sig/Clay Route Start Time Stop Time Status Last Admin Dose Admin Carvedilol 12.5 mg Q12HR PO 05/09/25 22:00 05/10/25 09:29 12.5 MG Donepezil HCl 10 mg HS PO 05/09/25 22:00 05/09/25 21:58 10 MG Gabapentin 300 mg DAILY PO 05/10/25 10:00 05/10/25 09:28 300 MG Hydralazine HCl 50 mg Q8HR PO 05/09/25 22:00 05/10/25 06:00 50 MG Isosorbide Mononitrate 30 mg DAILY PO 05/10/25 10:00 05/10/25 09:28 30 MG Rivaroxaban 15 mg QPM PO 05/10/25 18:00 Ondansetron HCl 4 mg Q4HP PRN IV 05/09/25 16:00 Acetaminophen 650 mg Q6HP PRN PO 05/09/25 16:00 05/10/25 09:27 650 MG Ertapenem 1 gm/ Sodium Chloride 50 ml @ 100 mls/hr DAILY IV 05/10/25 10:00 05/10/25 09:29 100 MLS/HR Laboratory Results Laboratory Tests 05/10/25 06:33 Chemistry Test 05/10/25 06:33 Calcium Level 8.8 mg/dL (8.7-10.4) Urinalysis Test 05/09/25 13:50 Urine Color Light-yellow (Yellow) Urine Clarity Clear (Clear) Urine pH 6.5 (5.0-9.0) Urine Specific [place] 1.012 (1.001-1.035) Urine Protein Negative (Negative) Urine Ketones Negative (Negative) Urine Blood Negative /uL (Negative) Urine Nitrite Negative (Negative) Urine Bilirubin Negative (Negative) Urine Urobilinogen 2 mg/dL (Negative) H Urine Leukocyte Esterase Negative /uL (Negative) Urine RBC 1 /hpf (0 - 4) Urine Microscopic WBC 1 /HPF (0-5) Urine Squamous Epithelial Cells Few /hpf (<5) Urine Bacteria None seen /hpf (None Seen) Urine Glucose Normal mg/dL (Normal) Microbiology Microbiology Date/Time Source Procedure Growth Status 05/09/25 13:50 Urine - [place] Urine Culture - Preliminary No growth Resulted 05/09/25 09:46 Blood Blood Culture - Preliminary NO GROWTH AFTER 24 HOURS OF INCUBATION. Resulted Labs and/or images reviewed: Labs reviewed by me, Image(s) reviewed by me Assessment/Plan Assessment/Plan Acute generalized weakness Complicated urinary tract infection patient on Invanz 1 g IV daily for three weeks at home by home health, continue Invanz as inpatient AFib on Xarelto Acute on chronic CHF exacerbation Hypertension Hypercholesterolemia GERD Aortic stenosis Status post TAVR Sick sinus syndrome status post pacemaker Bilateral hip surgery Failure to thrive COVID test negative Flu test negative Blood cultures negative Time spent 70 minutes Advanced care planning time 20 minutes Patient's daughter Nichole at bed side Plan discussed with: Patient Date of Service: May 10, 2025 Billing Provider: DAVI SAGASTUME MD Common Visit Codes: [id number] CARE 30-74 MIN DAVI SAGASTUME MD May 10, 2025 12:48
[2025-05-10 16:46] VITALS: BP 119/72; PULSE 76; RESP 20; TEMP 96.5; O2SAT 93
[2025-05-10] MEDS: RIVAROXABAN 15 MG TAB PO SCH (18:00)
[2025-05-10 21:00] VITALS: BP 151/95; PULSE 73; RESP 18; TEMP 97.4; O2SAT 95
[2025-05-11 01:42] LABS: Urine Protein, UAD TRACE (Negative)
[2025-05-11 04:55] VITALS: BP 134/87; PULSE 77; RESP 18; TEMP 98.1; O2SAT 97
[2025-05-11 07:27] LABS: Hematocrit 39.0 % (36.0-46.0); Hemoglobin 13.3 g/dL (12.2-16.2); Mean Corpuscular Hemoglobin 31.2 pg (28.0-32.0); Mean Corpuscular Volume 91.7 fL (80.0-100.0); Nucleated Red Blood Cells % 0.0 %
[2025-05-11 08:47] LABS: Alanine Aminotransferase 19 U/L (7-40); Anion Gap 12 (5-15); BUN/Creatinine Ratio 16.7 (10.0-20.0); Blood Urea Nitrogen 12 mg/dL (9-23); Carbon Dioxide 25 mmol/L (20-31); Chloride 103 mmol/L (98-107); Glucose 75 mg/dL (74-106); Potassium 3.8 mmol/L (3.5-5.1); Sodium 140 mmol/L (136-145); Total Protein 6.9 g/dL (5.7-8.2)
[2025-05-11 08:48] LABS: Albumin 3.4 g/dL (3.2-4.8)
[2025-05-11 08:49] LABS: Alkaline Phosphatase 132 U/L (46-116); Bilirubin, Total 0.8 mg/dL (0.2-1.0); Calcium 8.7 mg/dL (8.7-10.4)
[2025-05-11 09:00] VITALS: BP 136/91; PULSE 90; RESP 18; TEMP 98.4; O2SAT 97
[2025-05-11 13:00] VITALS: BP 136/93; PULSE 71; RESP 18; TEMP 97.9; O2SAT 95
[2025-05-11 17:00] VITALS: BP 144/101; PULSE 83; RESP 16; TEMP 98.1; O2SAT 96
[2025-05-11 21:00] VITALS: BP 146/107; PULSE 87; RESP 17; TEMP 98; O2SAT 95
[2025-05-12 01:00] VITALS: BP 146/117; PULSE 87; RESP 17; TEMP 98; O2SAT 94
[2025-05-12 05:00] VITALS: BP 141/117; PULSE 87; RESP 17; TEMP 98; O2SAT 95
[2025-05-12 05:34] LABS: Hematocrit 40.3 % (36.0-46.0); Hemoglobin 13.6 g/dL (12.2-16.2); Mean Corpuscular Hemoglobin 31.2 pg (28.0-32.0); Mean Corpuscular Volume 92.4 fL (80.0-100.0); Nucleated Red Blood Cells % 0.1 %
[2025-05-12 05:43] LABS: Alanine Aminotransferase 20 U/L (7-40); Albumin 3.6 g/dL (3.2-4.8); Anion Gap 6 (5-15); BUN/Creatinine Ratio 14.8 (10.0-20.0); Carbon Dioxide 28 mmol/L (20-31); Chloride 106 mmol/L (98-107); Glucose 94 mg/dL (74-106); Potassium 3.7 mmol/L (3.5-5.1); Sodium 140 mmol/L (136-145); Total Protein 7.2 g/dL (5.7-8.2)
[2025-05-12 05:44] LABS: Bilirubin, Total 0.5 mg/dL (0.2-1.0)
[2025-05-12 06:21] LABS: Alkaline Phosphatase 152 U/L (46-116); Blood Urea Nitrogen 9 mg/dL (9-23); Calcium 8.7 mg/dL (8.7-10.4)
[2025-05-12 08:18] VITALS: BP 152/102; PULSE 95; RESP 18; TEMP 97.6; TEMP 97.8; O2SAT 95
--- NOTE | 2025-05-12 12:00 | DVHPN2 ---
Reviewed: Care Plan, H&P, Labs, Medications, Previous Orders, Radiology Changes from previous H/P or p: No Changes Objective Vitals Vital Signs Date Time Temp Pulse Resp B/P (MAP) Pulse Ox O2 Delivery O2 Flow Rate FiO2 05/12/25 09:23 152/102 05/12/25 09:18 95 05/12/25 08:18 97.6 18 95 97.6 05/11/25 20:00 Room Air* 0 21 Intake/Output Intake and Output 05/12/25 07:00 Intake Total 1550 ml Output Total 2200 ml Balance -650 ml Intake Oral 1500 ml IV Total 50 ml Output Urine Total 2200 ml # Bowel Movements 1 Medications Current Medications Medications Dose Ordered Sig/Clay Route Start Time Stop Time Status Last Admin Dose Admin Carvedilol 12.5 mg Q12HR PO 05/09/25 22:00 05/12/25 09:18 12.5 MG Donepezil HCl 10 mg HS PO 05/09/25 22:00 05/11/25 21:41 10 MG Gabapentin 300 mg DAILY PO 05/10/25 10:00 05/12/25 09:24 300 MG Hydralazine HCl 50 mg Q8HR PO 05/09/25 22:00 05/12/25 06:39 50 MG Isosorbide Mononitrate 30 mg DAILY PO 05/10/25 10:00 05/12/25 09:23 30 MG Rivaroxaban 15 mg QPM PO 05/10/25 18:00 05/11/25 17:19 15 MG Ondansetron HCl 4 mg Q4HP PRN IV 05/09/25 16:00 Acetaminophen 650 mg Q6HP PRN PO 05/09/25 16:00 05/12/25 09:25 650 MG Ertapenem 1 gm/ Sodium Chloride 50 ml @ 100 mls/hr DAILY IV 05/10/25 10:00 05/12/25 09:18 100 MLS/HR Tramadol HCl 50 mg QID PO 05/10/25 18:00 05/12/25 06:40 50 MG Laboratory Results Laboratory Tests 05/12/25 04:47 Chemistry Test 05/12/25 04:47 Albumin 3.6 g/dL (3.2-4.8) Calcium Level 8.7 mg/dL (8.7-10.4) Total Protein 7.2 g/dL (5.7-8.2) LFT Test 05/12/25 04:47 Alanine Aminotransferase (ALT) 20 U/L (7-40) Alkaline Phosphatase 152 U/L (46-116) H Aspartate Amino Transferase (AST) 32 U/L (13-40) Total Bilirubin 0.5 mg/dL (0.2-1.0) Urinalysis Test 05/10/25 23:59 Urine Color Yellow (Yellow) Urine Clarity Clear (Clear) Urine pH 5.5 (5.0-9.0) Urine Specific [place] 1.012 (1.001-1.035) Urine Protein Trace (Negative) H Urine Ketones Negative (Negative) Urine Blood Negative /uL (Negative) Urine Nitrite Negative (Negative) Urine Bilirubin Negative (Negative) Urine Urobilinogen Normal mg/dL (Negative) Urine Leukocyte Esterase Negative /uL (Negative) Urine RBC 6 /hpf (0 - 4) Urine Microscopic WBC 3 /HPF (0-5) Urine Squamous Epithelial Cells Few /hpf (<5) Urine Bacteria None seen /hpf (None Seen) Urine Mucus Few (None Seen) Urine Glucose Normal mg/dL (Normal) Microbiology Microbiology Date/Time Source Procedure Growth Status 05/10/25 23:59 Urine - [place] Urine Culture - Preliminary No growth Resulted 05/10/25 00:14 Nose MRSA Screen - Final Complete 05/09/25 09:46 Blood Blood Culture - Preliminary NO GROWTH AFTER 72 HOURS OF INCUBATION. Resulted Labs and/or images reviewed: Labs reviewed by me, Image(s) reviewed by me Assessment/Plan Assessment/Plan Acute generalized weakness Complicated urinary tract infection patient on Invanz 1 g IV daily for three weeks at home by home health, continue Invanz as inpatient and as an outpatient for one more week, repeat urine cultures came negative, blood cultures neg AFib on Xarelto Acute on chronic CHF exacerbation Hypertension Hypercholesterolemia GERD Aortic stenosis Status post TAVR Sick sinus syndrome status post pacemaker Bilateral hip surgery Failure to thrive COVID test negative Flu test negative Blood cultures negative Time spent 50 minutes Advanced care planning time 20 minutes Patient's daughter Nichole at bed side Plan discussed with: Patient Date of Service: May 12, 2025 Billing Provider: DAVI SAGASTUME MD Common Visit Codes: [id number] INP/OBS CARE(HIGH) DAVI SAGASTUME MD May 12, 2025 12:00
[2025-05-12 13:00] VITALS: BP 142/106; PULSE 96; RESP 18; TEMP 98; O2SAT 98
[2025-05-12 17:02] VITALS: BP 130/94; PULSE 78; RESP 18; TEMP 97.6; O2SAT 96
[2025-05-12 21:00] VITALS: BP 151/94; PULSE 73; RESP 18; TEMP 97.6; O2SAT 97
[2025-05-13] VITALS (7 sets, daily range): BP systolic 130–159; BP diastolic 87–103; PULSE 77–92; RESP 18; TEMP 97.5–98.2; O2SAT 95–96
[2025-05-13 08:00] LABS: Hematocrit 41.9 % (36.0-46.0); Hemoglobin 14.0 g/dL (12.2-16.2); Mean Corpuscular Hemoglobin 30.8 pg (28.0-32.0); Mean Corpuscular Volume 92.1 fL (80.0-100.0); Nucleated Red Blood Cells % 0.0 %
[2025-05-13 08:26] LABS: Alanine Aminotransferase 24 U/L (7-40); Albumin 3.9 g/dL (3.2-4.8); BUN/Creatinine Ratio 10.1 (10.0-20.0); Bilirubin, Total 0.5 mg/dL (0.2-1.0); Calcium 8.8 mg/dL (8.7-10.4); Carbon Dioxide 29 mmol/L (20-31); Glucose 89 mg/dL (74-106); Potassium 3.6 mmol/L (3.5-5.1); Sodium 141 mmol/L (136-145); Total Protein 7.7 g/dL (5.7-8.2)
[2025-05-13 08:30] LABS: Alkaline Phosphatase 160 U/L (46-116); Blood Urea Nitrogen 7 mg/dL (9-23)
[2025-05-13 09:01] LABS: Anion Gap 9 (5-15); Chloride 103 mmol/L (98-107)
[2025-05-14] VITALS (7 sets, daily range): BP systolic 133–168; BP diastolic 87–112; PULSE 78–101; RESP 17–18; TEMP 97.6–98.1; O2SAT 95–97
[2025-05-14 07:35] LABS: Hematocrit 43.6 % (36.0-46.0); Hemoglobin 14.6 g/dL (12.2-16.2); Mean Corpuscular Hemoglobin 30.9 pg (28.0-32.0); Mean Corpuscular Volume 92.2 fL (80.0-100.0); Nucleated Red Blood Cells % 0.3 %
[2025-05-14 08:01] LABS: Alanine Aminotransferase 26 U/L (7-40); Albumin 3.8 g/dL (3.2-4.8); BUN/Creatinine Ratio 13.2 (10.0-20.0); Bilirubin, Total 0.6 mg/dL (0.2-1.0); Calcium 9.1 mg/dL (8.7-10.4); Carbon Dioxide 30 mmol/L (20-31); Glucose 87 mg/dL (74-106); Potassium 4.1 mmol/L (3.5-5.1); Sodium 141 mmol/L (136-145); Total Protein 7.7 g/dL (5.7-8.2)
[2025-05-14 08:02] LABS: Alkaline Phosphatase 162 U/L (46-116); Blood Urea Nitrogen 9 mg/dL (9-23)
[2025-05-14 08:51] LABS: Anion Gap 11 (5-15); Chloride 100 mmol/L (98-107)
--- NOTE | 2025-05-14 09:30 | DVHPN2 ---
Reviewed: Care Plan, H&P, Labs, Medications, Previous Orders, Radiology Changes from previous H/P or p: No Changes Objective Vitals Vital Signs Date Time Temp Pulse Resp B/P (MAP) Pulse Ox O2 Delivery O2 Flow Rate FiO2 05/14/25 05:10 144/100 05/14/25 05:00 98.1 78 18 97 98.1 05/13/25 20:10 Room Air* 0 21 Intake/Output Intake and Output 05/14/25 07:00 Intake Total 1275 ml Output Total 2400 ml Balance -1125 ml Intake Oral 1225 ml IV Total 50 ml Output Urine Total 2400 ml Medications Current Medications Medications Dose Ordered Sig/Clay Route Start Time Stop Time Status Last Admin Dose Admin Carvedilol 12.5 mg Q12HR PO 05/09/25 22:00 05/13/25 21:21 12.5 MG Donepezil HCl 10 mg HS PO 05/09/25 22:00 05/13/25 21:21 10 MG Gabapentin 300 mg DAILY PO 05/10/25 10:00 05/13/25 10:10 300 MG Hydralazine HCl 50 mg Q8HR PO 05/09/25 22:00 05/14/25 05:10 50 MG Isosorbide Mononitrate 30 mg DAILY PO 05/10/25 10:00 05/13/25 10:11 30 MG Rivaroxaban 15 mg QPM PO 05/10/25 18:00 05/13/25 17:33 15 MG Ondansetron HCl 4 mg Q4HP PRN IV 05/09/25 16:00 Acetaminophen 650 mg Q6HP PRN PO 05/09/25 16:00 05/12/25 09:25 650 MG Ertapenem 1 gm/ Sodium Chloride 50 ml @ 100 mls/hr DAILY IV 05/10/25 10:00 05/13/25 13:10 100 MLS/HR Tramadol HCl 50 mg QID PO 05/10/25 18:00 05/14/25 05:10 50 MG Laboratory Results Laboratory Tests 05/14/25 06:10 Chemistry Test 05/14/25 06:10 Albumin 3.8 g/dL (3.2-4.8) Calcium Level 9.1 mg/dL (8.7-10.4) Total Protein 7.7 g/dL (5.7-8.2) LFT Test 05/14/25 06:10 Alanine Aminotransferase (ALT) 26 U/L (7-40) Alkaline Phosphatase 162 U/L (46-116) H Aspartate Amino Transferase (AST) 33 U/L (13-40) Total Bilirubin 0.6 mg/dL (0.2-1.0) Urinalysis Test 05/10/25 23:59 Urine Color Yellow (Yellow) Urine Clarity Clear (Clear) Urine pH 5.5 (5.0-9.0) Urine Specific [place] 1.012 (1.001-1.035) Urine Protein Trace (Negative) H Urine Ketones Negative (Negative) Urine Blood Negative /uL (Negative) Urine Nitrite Negative (Negative) Urine Bilirubin Negative (Negative) Urine Urobilinogen Normal mg/dL (Negative) Urine Leukocyte Esterase Negative /uL (Negative) Urine RBC 6 /hpf (0 - 4) Urine Microscopic WBC 3 /HPF (0-5) Urine Squamous Epithelial Cells Few /hpf (<5) Urine Bacteria None seen /hpf (None Seen) Urine Mucus Few (None Seen) Urine Glucose Normal mg/dL (Normal) Microbiology Microbiology Date/Time Source Procedure Growth Status 05/10/25 23:59 Urine - [place] Urine Culture - Final Complete 05/10/25 00:14 Nose MRSA Screen - Final Complete 05/09/25 09:46 Blood Blood Culture - Preliminary NO GROWTH AFTER 72 HOURS OF INCUBATION. Resulted Labs and/or images reviewed: Labs reviewed by me, Image(s) reviewed by me Assessment/Plan Assessment/Plan late entry Acute generalized weakness Complicated urinary tract infection patient on Invanz 1 g IV daily for three weeks at home by home health, continue Invanz as inpatient and as an outpatient for one more week, repeat urine cultures came negative, blood cultures neg AFib on Xarelto Acute on chronic CHF exacerbation Hypertension Hypercholesterolemia GERD Aortic stenosis Status post TAVR Sick sinus syndrome status post pacemaker Bilateral hip surgery Failure to thrive COVID test negative Flu test negative Blood cultures negative Time spent 50 minutes Advanced care planning time 20 minutes Patient's daughter Nichole at bed side Plan discussed with: Patient My Orders Orders - DAVI SAGASTUME MD Procedure Category Date Status Time D/C Sitter ORDERS 05/14/25 Transmitted 09:23 Insert Midline ORDERS 05/14/25 Transmitted 09:27 Date of Service: May 11, 2025 Billing Provider: DAVI SAGASTUME MD Common Visit Codes: [id number] INP/OBS CARE(HIGH) DVAI SAGASTUME MD May 14, 2025 09:30
--- NOTE | 2025-05-14 09:31 | DVHPN2 ---
Reviewed: Care Plan, H&P, Labs, Medications, Previous Orders, Radiology Changes from previous H/P or p: No Changes Objective Vitals Vital Signs Date Time Temp Pulse Resp B/P (MAP) Pulse Ox O2 Delivery O2 Flow Rate FiO2 05/14/25 05:10 144/100 05/14/25 05:00 98.1 78 18 97 98.1 05/13/25 20:10 Room Air* 0 21 Intake/Output Intake and Output 05/14/25 07:00 Intake Total 1275 ml Output Total 2400 ml Balance -1125 ml Intake Oral 1225 ml IV Total 50 ml Output Urine Total 2400 ml Medications Current Medications Medications Dose Ordered Sig/Clay Route Start Time Stop Time Status Last Admin Dose Admin Carvedilol 12.5 mg Q12HR PO 05/09/25 22:00 05/13/25 21:21 12.5 MG Donepezil HCl 10 mg HS PO 05/09/25 22:00 05/13/25 21:21 10 MG Gabapentin 300 mg DAILY PO 05/10/25 10:00 05/13/25 10:10 300 MG Hydralazine HCl 50 mg Q8HR PO 05/09/25 22:00 05/14/25 05:10 50 MG Isosorbide Mononitrate 30 mg DAILY PO 05/10/25 10:00 05/13/25 10:11 30 MG Rivaroxaban 15 mg QPM PO 05/10/25 18:00 05/13/25 17:33 15 MG Ondansetron HCl 4 mg Q4HP PRN IV 05/09/25 16:00 Acetaminophen 650 mg Q6HP PRN PO 05/09/25 16:00 05/12/25 09:25 650 MG Ertapenem 1 gm/ Sodium Chloride 50 ml @ 100 mls/hr DAILY IV 05/10/25 10:00 05/13/25 13:10 100 MLS/HR Tramadol HCl 50 mg QID PO 05/10/25 18:00 05/14/25 05:10 50 MG Laboratory Results Laboratory Tests 05/14/25 06:10 Chemistry Test 05/14/25 06:10 Albumin 3.8 g/dL (3.2-4.8) Calcium Level 9.1 mg/dL (8.7-10.4) Total Protein 7.7 g/dL (5.7-8.2) LFT Test 05/14/25 06:10 Alanine Aminotransferase (ALT) 26 U/L (7-40) Alkaline Phosphatase 162 U/L (46-116) H Aspartate Amino Transferase (AST) 33 U/L (13-40) Total Bilirubin 0.6 mg/dL (0.2-1.0) Urinalysis Test 05/10/25 23:59 Urine Color Yellow (Yellow) Urine Clarity Clear (Clear) Urine pH 5.5 (5.0-9.0) Urine Specific [place] 1.012 (1.001-1.035) Urine Protein Trace (Negative) H Urine Ketones Negative (Negative) Urine Blood Negative /uL (Negative) Urine Nitrite Negative (Negative) Urine Bilirubin Negative (Negative) Urine Urobilinogen Normal mg/dL (Negative) Urine Leukocyte Esterase Negative /uL (Negative) Urine RBC 6 /hpf (0 - 4) Urine Microscopic WBC 3 /HPF (0-5) Urine Squamous Epithelial Cells Few /hpf (<5) Urine Bacteria None seen /hpf (None Seen) Urine Mucus Few (None Seen) Urine Glucose Normal mg/dL (Normal) Microbiology Microbiology Date/Time Source Procedure Growth Status 05/10/25 23:59 Urine - [place] Urine Culture - Final Complete 05/10/25 00:14 Nose MRSA Screen - Final Complete 05/09/25 09:46 Blood Blood Culture - Preliminary NO GROWTH AFTER 72 HOURS OF INCUBATION. Resulted Labs and/or images reviewed: Labs reviewed by me, Image(s) reviewed by me Assessment/Plan Assessment/Plan late entry Acute generalized weakness Complicated urinary tract infection patient on Invanz 1 g IV daily for three weeks at home by home health, continue Invanz as inpatient and as an outpatient for one more week, repeat urine cultures came negative, blood cultures neg AFib on Xarelto Acute on chronic CHF exacerbation Hypertension Hypercholesterolemia GERD Aortic stenosis Status post TAVR Sick sinus syndrome status post pacemaker Bilateral hip surgery Failure to thrive COVID test negative Flu test negative Blood cultures negative Time spent 48 minutes Advanced care planning time 20 minutes Patient's daughter Nichole at bed side Plan discussed with: Patient My Orders Orders - DAVI SAGASTUME MD Procedure Category Date Status Time D/C Sitter ORDERS 05/14/25 Transmitted 09:23 Insert Midline ORDERS 05/14/25 Transmitted 09:27 Date of Service: May 13, 2025 Billing Provider: DAVI SAGASTUME MD Common Visit Codes: [id number] INP/OBS CARE(HIGH) DAVI SAGASTUME MD May 14, 2025 09:31
--- NOTE | 2025-05-14 09:33 | DVHPN2 ---
Reviewed: Care Plan, H&P, Labs, Medications, Previous Orders, Radiology Changes from previous H/P or p: No Changes Objective Vitals Vital Signs Date Time Temp Pulse Resp B/P (MAP) Pulse Ox O2 Delivery O2 Flow Rate FiO2 05/14/25 05:10 144/100 05/14/25 05:00 98.1 78 18 97 98.1 05/13/25 20:10 Room Air* 0 21 Intake/Output Intake and Output 05/14/25 07:00 Intake Total 1275 ml Output Total 2400 ml Balance -1125 ml Intake Oral 1225 ml IV Total 50 ml Output Urine Total 2400 ml Medications Current Medications Medications Dose Ordered Sig/Clay Route Start Time Stop Time Status Last Admin Dose Admin Carvedilol 12.5 mg Q12HR PO 05/09/25 22:00 05/13/25 21:21 12.5 MG Donepezil HCl 10 mg HS PO 05/09/25 22:00 05/13/25 21:21 10 MG Gabapentin 300 mg DAILY PO 05/10/25 10:00 05/13/25 10:10 300 MG Hydralazine HCl 50 mg Q8HR PO 05/09/25 22:00 05/14/25 05:10 50 MG Isosorbide Mononitrate 30 mg DAILY PO 05/10/25 10:00 05/13/25 10:11 30 MG Rivaroxaban 15 mg QPM PO 05/10/25 18:00 05/13/25 17:33 15 MG Ondansetron HCl 4 mg Q4HP PRN IV 05/09/25 16:00 Acetaminophen 650 mg Q6HP PRN PO 05/09/25 16:00 05/12/25 09:25 650 MG Ertapenem 1 gm/ Sodium Chloride 50 ml @ 100 mls/hr DAILY IV 05/10/25 10:00 05/13/25 13:10 100 MLS/HR Tramadol HCl 50 mg QID PO 05/10/25 18:00 05/14/25 05:10 50 MG Laboratory Results Laboratory Tests 05/14/25 06:10 Chemistry Test 05/14/25 06:10 Albumin 3.8 g/dL (3.2-4.8) Calcium Level 9.1 mg/dL (8.7-10.4) Total Protein 7.7 g/dL (5.7-8.2) LFT Test 05/14/25 06:10 Alanine Aminotransferase (ALT) 26 U/L (7-40) Alkaline Phosphatase 162 U/L (46-116) H Aspartate Amino Transferase (AST) 33 U/L (13-40) Total Bilirubin 0.6 mg/dL (0.2-1.0) Urinalysis Test 05/10/25 23:59 Urine Color Yellow (Yellow) Urine Clarity Clear (Clear) Urine pH 5.5 (5.0-9.0) Urine Specific [place] 1.012 (1.001-1.035) Urine Protein Trace (Negative) H Urine Ketones Negative (Negative) Urine Blood Negative /uL (Negative) Urine Nitrite Negative (Negative) Urine Bilirubin Negative (Negative) Urine Urobilinogen Normal mg/dL (Negative) Urine Leukocyte Esterase Negative /uL (Negative) Urine RBC 6 /hpf (0 - 4) Urine Microscopic WBC 3 /HPF (0-5) Urine Squamous Epithelial Cells Few /hpf (<5) Urine Bacteria None seen /hpf (None Seen) Urine Mucus Few (None Seen) Urine Glucose Normal mg/dL (Normal) Microbiology Microbiology Date/Time Source Procedure Growth Status 05/10/25 23:59 Urine - [place] Urine Culture - Final Complete 05/10/25 00:14 Nose MRSA Screen - Final Complete 05/09/25 09:46 Blood Blood Culture - Preliminary NO GROWTH AFTER 72 HOURS OF INCUBATION. Resulted Labs and/or images reviewed: Labs reviewed by me, Image(s) reviewed by me Assessment/Plan Assessment/Plan Acute generalized weakness Complicated urinary tract infection patient on Invanz 1 g IV daily for three weeks at home by home health, continue Invanz as inpatient and for one more week in [facility], repeat urine cultures came negative, blood cultures neg AFib on Xarelto Acute on chronic CHF exacerbation Hypertension Hypercholesterolemia Excessive Sleepiness: Discontinue gabapentin GERD Aortic stenosis Status post TAVR Sick sinus syndrome status post pacemaker Bilateral hip surgery Failure to thrive COVID test negative Flu test negative Time spent 48 minutes Advanced care planning time 20 minutes Patient's daughter Soraida at bed side and she is agreeable for the patient to be discharged to retirement facility for Invanz IV for one more week Plan discussed with: Patient My Orders Orders - DAIV SAGASTUME MD Procedure Category Date Status Time D/C Sitter ORDERS 05/14/25 Transmitted 09:23 Insert Midline ORDERS 05/14/25 Transmitted 09:27 Date of Service: May 14, 2025 Billing Provider: DAVI SAGASTUME MD Common Visit Codes: [id number] INP/OBS CARE(HIGH) DAVI SAGASTUME MD May 14, 2025 09:33
--- NOTE | 2025-05-14 09:39 | DVHDS2 ---
Discharge Summary Date of Admission May 09, 2025 at 13:35 Date of Discharge: May 14, 2025 Admitting Diagnosis Altered mental status and confusion Wounds: None Labs/Diagnostic Data: Laboratory Results Test 05/14/25 06:10 05/10/25 23:59 05/09/25 10:52 05/09/25 09:40 White Blood Count 6.3 10^3/uL (4.4-10.8) Red Blood Count 4.73 10^6/uL (4.0-5.20) Hemoglobin 14.6 g/dL (12.2-16.2) Hematocrit 43.6 % (36.0-46.0) Mean Corpuscular Volume 92.2 fL (80.0-100.0) Mean Corpuscular Hemoglobin 30.9 pg (28.0-32.0) Mean Corpuscular Hemoglobin Concent 33.5 g/dL (32.0-36.0) Red Cell Distribution Width 16.7 % (11.8-14.3) Platelet Count 270 10^3/uL (140-450) Mean Platelet Volume 7.2 fL (6.9-10.8) Neutrophils (%) (Auto) 47.8 % (37.0-80.0) Lymphocytes (%) (Auto) 31.4 % (10.0-50.0) Monocytes (%) (Auto) 12.6 % (0.0-12.0) Eosinophils (%) (Auto) 6.4 % (0.0-7.0) Basophils (%) (Auto) 1.8 % (0.0-2.0) Neutrophils # (Auto) 3.0 10 ^3/uL (1.6-8.6) Lymphocytes # (Auto) 2.0 10 ^3/uL (0.4-5.4) Monocytes # (Auto) 0.8 10 ^3/uL (0-1.3) Eosinophils # (Auto) 0.4 10 ^3/uL (0-0.8) Basophils # (Auto) 0.1 10 ^3/uL (0-0.2) Nucleated Red Blood Cells 0.3 % Sodium Level 141 mmol/L (136-145) Potassium Level 4.1 mmol/L (3.5-5.1) Chloride Level 100 mmol/L (98-107) Carbon Dioxide Level 30 mmol/L (20-31) Anion Gap 11 (5-15) Blood Urea Nitrogen 9 mg/dL (9-23) Creatinine 0.68 mg/dL (0.550-1.02) Glomerular Filtration Rate Calc 85 mL/min (>90) BUN/Creatinine Ratio 13.2 (10.0-20.0) Serum Glucose 87 mg/dL (74-106) Calcium Level 9.1 mg/dL (8.7-10.4) Total Bilirubin 0.6 mg/dL (0.2-1.0) Aspartate Amino Transferase (AST) 33 U/L (13-40) Alanine Aminotransferase (ALT) 26 U/L (7-40) Alkaline Phosphatase 162 U/L (46-116) Total Protein 7.7 g/dL (5.7-8.2) Albumin 3.8 g/dL (3.2-4.8) Urine Color Yellow (Yellow) Urine Clarity Clear (Clear) Urine pH 5.5 (5.0-9.0) Urine Specific [place] 1.012 (1.001-1.035) Urine Protein Trace (Negative) Urine Ketones Negative (Negative) Urine Blood Negative /uL (Negative) Urine Nitrite Negative (Negative) Urine Bilirubin Negative (Negative) Urine Urobilinogen Normal mg/dL (Negative) Urine Leukocyte Esterase Negative /uL (Negative) Urine RBC 6 /hpf (0 - 4) Urine Microscopic WBC 3 /HPF (0-5) Urine Squamous Epithelial Cells Few /hpf (<5) Urine Bacteria None seen /hpf (None Seen) Urine Mucus Few (None Seen) Urine Glucose Normal mg/dL (Normal) Influenza Type A Antigen Negative (Negative) Influenza Type B Antigen Negative (Negative) SARS-CoV-2 Antigen (Rapid) Negative (NEGATIVE) Lactic Acid Level 0.6 mmol/L (0.4-2.0) Other Laboratory Tests 05/14/25 06:10 Brief Hx & Hospital Course: 84-year-old female who sustained pelvic fracture secondary to mechanical fall and seen by orthopedic and discharged home two weeks ago. Subsequently urine cultures came positive for ESBL E coli and patient was placed on Invanz 1 g IV daily for three weeks by home health she completed 10 days and was brought back by the family for generalized weakness and altered mental status. Invanz was continued repeat blood cultures and urine cultures came negative. He is on Xarelto for AFib and Lasix for CHF comorbid conditions include hypertension hypercholesterolemia aortic stenosis status post TAVR sick sinus syndrome status post pacemaker history of bilateral hip surgery. COVID test negative flu test negative Patient has been feeling excessively sleepy and gabapentin discontinued temporarily Patient discharged to group home facility to receive Invanz 1 g IV daily for one more week and for physical therapy medication management. The plan is acceptable with the patient's daughter Soraida at bedside. Consults/Reason for consult None Operations or Procedures None Condition at Discharge: Fair Final Diagnosis/Problems List Acute generalized weakness Complicated urinary tract infection patient on Invanz 1 g IV daily for three weeks at home by home health, continue Invanz as inpatient and for one more week in residential, repeat urine cultures came negative, blood cultures neg AFib on Xarelto Acute on chronic CHF exacerbation Hypertension Hypercholesterolemia Excessive Sleepiness: Discontinue gabapentin GERD Aortic stenosis Status post TAVR Sick sinus syndrome status post pacemaker Bilateral hip surgery Failure to thrive COVID test negative Flu test negative Discharge Disposition: Residential Facility Discharge Instruct/Medications Diet: Cardiac 2g Na,low cholest Activity: Light activity Follow Up/Referral: Follow up with the residential Medications: Invanz 1 g IV daily for one week for complicated UTI with ESBL E coli Scheduled Carvedilol (Carvedilol), 25 MG PO Q12HR, (Reported) Cefdinir (Cefdinir), 1 CAP PO BID Diltiazem Hcl (Diltiazem Hcl Er), 1 CAP PO DAILY, (Reported) Donepezil Hydrochloride (Donepezil Hcl), 10 MG PO DAILY, (Reported) Furosemide (Furosemide), 1 TAB PO DAILY, (Reported) Gabapentin (Gabapentin), 300 MG PO DAILY, (Reported) Hydralazine Hcl (Hydralazine Hcl), 1 TAB PO TID, (Reported) Irbesartan (Irbesartan), 1 TAB PO DAILY, (Reported) Isosorbide Mononitrate (Isosorbide Mononitrate Er), 1 TAB PO DAILY, (Reported) Levofloxacin Hemihydrate (Levaquin 500 Mg), 1 TAB PO DAILY Montelukast Sodium (Montelukast Sodium), 1 TAB PO DAILY, (Reported) Omeprazole (Omeprazole ), 1 CAP PO DAILY, (Reported) Oxybutynin Chloride (Oxybutynin Chloride), 10 MG PO DAILY, (Reported) Pantoprazole Sodium Sesquihydr (Pantoprazole Sodium), 1 TAB PO BID, (Reported) Rivaroxaban (Xarelto Tablet), 1 TAB PO DAILY, (Reported) Scheduled PRN Acetaminophen (Apap), 2 TAB PO Q4HPRN PRN for mild pain 1-3, (Reported) Albuterol Sulfate (Albuterol Sulfate Hfa), 1 PUFF PO Q12HR PRN PRN for ACUTE BRONCHITIS DUE TO STREP, (Reported) Bisacodyl (Dulcolax), 10 MG RE DAILY PRN for FOR CONSTIPATION, (Reported) Docusate Sodium (Colace), 1 CAP PO BID PRN for FOR CONSTIPATION, (Reported) Hydrocodone-Acetaminophen (Hydrocodone Bitartrate/AC 5-325 mg), 1 TAB PO QID PRN Magnesium Hydroxide (Milk Of Magnesia), 30 ML PO DAILY PRN for FOR CONSTIPATION, (Reported) 39 (Time Taken for discharge summary 39 minutes) Discharge Statement: "Patient was advised to return to the ER or call 911 if any headaches, dizziness, shortness of breath, chest pain, abdominal pain, bleeding, fevers, or worsening of medical condition. Patient was counseled about treatment plan, medications, possible side effects, patientverbalized understanding. All questions were answered to the best of my ability. This discharge took greater then 30 minutes in planning, reviewing documentation, counseling the patient, and discussing with other team members." ASSESSMENT ASSESSMENT Hospital Course Improved marginally Assessment Acute generalized weakness Complicated urinary tract infection patient on Invanz 1 g IV daily for three weeks at home by home health, continue Invanz as inpatient and for one more week in residential, repeat urine cultures came negative, blood cultures neg AFib on Xarelto Acute on chronic CHF exacerbation Hypertension Hypercholesterolemia Excessive Sleepiness: Discontinue gabapentin GERD Aortic stenosis Status post TAVR Sick sinus syndrome status post pacemaker Bilateral hip surgery Failure to thrive COVID test negative Flu test negative Date of Service: May 14, 2025 Billing Provider: DAVI SAGASTUME MD Common Visit Codes: [id number] DISCH DAY >30min DAVI SAGASTUME MD May 14, 2025 09:39
[2025-05-15 01:00] VITALS: BP 134/108; PULSE 93; RESP 17; TEMP 97.8; O2SAT 96
[2025-05-15 05:00] VITALS: BP 152/104; PULSE 89; RESP 17; TEMP 97.6; O2SAT 95
[2025-05-15 08:00] VITALS: PULSE 71; RESP 17; O2SAT 99
--- NOTE | 2025-05-15 08:42 | DVHPN2 ---
Reviewed: Care Plan, H&P, Labs, Medications, Previous Orders, Radiology Changes from previous H/P or p: No Changes Objective Vitals Vital Signs Date Time Temp Pulse Resp B/P (MAP) Pulse Ox O2 Delivery O2 Flow Rate FiO2 05/15/25 05:41 152/104 05/15/25 05:00 97.6 89 17 95 97.6 05/14/25 19:55 Room Air* 0 21 Intake/Output Intake and Output 05/15/25 07:00 Intake Total 890 ml Output Total 900 ml Balance -10 ml Intake Oral 840 ml IV Total 50 ml Output Urine Total 900 ml Medications Current Medications Medications Dose Ordered Sig/Clay Route Start Time Stop Time Status Last Admin Dose Admin Carvedilol 12.5 mg Q12HR PO 05/09/25 22:00 05/14/25 22:37 12.5 MG Donepezil HCl 10 mg HS PO 05/09/25 22:00 05/14/25 22:36 10 MG Hydralazine HCl 50 mg Q8HR PO 05/09/25 22:00 05/15/25 05:41 50 MG Isosorbide Mononitrate 30 mg DAILY PO 05/10/25 10:00 05/14/25 09:52 30 MG Rivaroxaban 15 mg QPM PO 05/10/25 18:00 05/14/25 17:54 15 MG Ondansetron HCl 4 mg Q4HP PRN IV 05/09/25 16:00 Acetaminophen 650 mg Q6HP PRN PO 05/09/25 16:00 05/12/25 09:25 650 MG Ertapenem 1 gm/ Sodium Chloride 50 ml @ 100 mls/hr DAILY IV 05/10/25 10:00 05/14/25 09:52 100 MLS/HR Tramadol HCl 50 mg QID PO 05/10/25 18:00 05/15/25 05:41 50 MG Laboratory Results Laboratory Tests 05/14/25 06:10 Urinalysis Test 05/10/25 23:59 Urine Color Yellow (Yellow) Urine Clarity Clear (Clear) Urine pH 5.5 (5.0-9.0) Urine Specific [place] 1.012 (1.001-1.035) Urine Protein Trace (Negative) H Urine Ketones Negative (Negative) Urine Blood Negative /uL (Negative) Urine Nitrite Negative (Negative) Urine Bilirubin Negative (Negative) Urine Urobilinogen Normal mg/dL (Negative) Urine Leukocyte Esterase Negative /uL (Negative) Urine RBC 6 /hpf (0 - 4) Urine Microscopic WBC 3 /HPF (0-5) Urine Squamous Epithelial Cells Few /hpf (<5) Urine Bacteria None seen /hpf (None Seen) Urine Mucus Few (None Seen) Urine Glucose Normal mg/dL (Normal) Microbiology Microbiology Date/Time Source Procedure Growth Status 05/10/25 23:59 Urine - [place] Urine Culture - Final Complete 05/10/25 00:14 Nose MRSA Screen - Final Complete 05/09/25 09:46 Blood Blood Culture - Final NO GROWTH AFTER 5 DAYS OF INCUBATION. Complete Labs and/or images reviewed: Labs reviewed by me, Image(s) reviewed by me Assessment/Plan Assessment/Plan Acute generalized weakness Complicated urinary tract infection patient on Invanz 1 g IV daily for three weeks at home by home health, continue Invanz as inpatient and [facility], repeat urine cultures came negative, blood cultures neg AFib on Xarelto Acute on chronic CHF exacerbation Hypertension Hypercholesterolemia Excessive Sleepiness: Discontinue gabapentin GERD Aortic stenosis Status post TAVR Sick sinus syndrome status post pacemaker Bilateral hip surgery Failure to thrive COVID test negative Flu test negative Time spent 48 minutes Advanced care planning time 20 minutes Patient's daughter Soraida at bed side and she is agreeable for the patient to be discharged to [facility] for [facility]vanz IV for one more week Patient awaiting for the bed in the [facility] facility Plan discussed with: Patient My Orders Orders - DAVI SAGASTUME MD Procedure Category Date Status Time D/C Sitter ORDERS 05/14/25 Transmitted 09:23 Insert Midline ORDERS 05/14/25 Transmitted 09:27 * District Manager [employer] CONS 05/14/25 Transmitted Consult Discharge DISCHARGE 05/14/25 Transmitted 09:34 * District Manager [employer] CONS 05/15/25 Transmitted Consult Date of Service: May 15, 2025 Billing Provider: DAVI SAGASTUME MD Common Visit Codes: [id number] INP/OBS CARE(HIGH) DAVI SAGASTUME MD May 15, 2025 08:42
[2025-05-15 08:54] VITALS: BP 153/102; PULSE 84; RESP 16; TEMP 97.6; O2SAT 95
== END 2025-05-15 15:00 | DRG 689 ==
LOC: EDBD 09:12 → ER 09:12 → OVERFLOW 13:35 → EDUNIT# 13:35 → WEST WING 20:55
PROVIDERS: ADMIT Family Medicine; ATTEND Family Medicine
PROC: 05HB33Z Insertion of Infusion Device into Right Basilic Vein, Percutaneous Approach (ICD-10-PCS; principal; 2025-05-14)
PROC: B54MZZA Ultrasonography of Right Upper Extremity Veins, Guidance (ICD-10-PCS; 2025-05-14)
DX: N39.0 Urinary tract infection, site not specified (principal); G93.41 Metabolic encephalopathy; I50.33 Acute on chronic diastolic (congestive) heart failure; R62.7 Adult failure to thrive; I11.0 Hypertensive heart disease with heart failure; Z79.01 Long term (current) use of anticoagulants; Z95.2 Presence of prosthetic heart valve; I49.5 Sick sinus syndrome; Z20.822 Contact with and (suspected) exposure to COVID-19; I48.91 Unspecified atrial fibrillation; K21.9 Gastro-esophageal reflux disease without esophagitis; Z96.642 Presence of left artificial hip joint; E78.00 Pure hypercholesterolemia, unspecified; Z95.0 Presence of cardiac pacemaker; Z68.27 Body mass index [BMI] 27.0-27.9, adult; Z79.899 Other long term (current) drug therapy
CPT/HCPCS: 36415; 71045; 80048; 80053; 81001; 83605; 85025; 87040; 87081; 87086; 87426; 87804; 93005; 96360; G0378; J1335